=== PATIENT | female | born 1950 | race Caucasian/White ===

== ENCOUNTER 2023-02-07 11:12 | Emergency (ER) | payer MEDICARE, SELFPAY ==
--- NOTE | 2023-02-07 11:17 | ED.EYEPROB ---
HPI - Eye Problem General Chief complaint: Eye Problems Stated complaint: lt eye irritation Time Seen by Provider: 02/07/23 11:16 Source: patient Mode of arrival: ambulatory Limitations: no limitations History of Present Illness HPI Narrative: Patient is 9-year-old female that presents with left eye irritation, pain, discharge since yesterday. Patient states she woke up with her eye crusted shut with yellow/green discharge. Patient denies any pinkeye exposure. Patient used Visine drops last night mild relief. Denies any congestion, fever, chills, cough, shortness of breath, nausea, vomiting, diarrhea. Denies any changes in vision. Just went to eye doctor and received a new prescription. Denies any trauma to eye or feeling like there is something in it. Related Data Home Medications Medication Instructions Recorded Confirmed carbidopa 25 mg-levodopa 100 mg 1 tablet PO DAILY 02/07/23 02/07/23 tablet lamotrigine 25 mg tablet 25 mg PO DAILY 02/07/23 02/07/23 omeprazole 40 mg capsule,delayed 40 mg PO DAILY 02/07/23 02/07/23 release primidone 50 mg tablet 50 mg PO DAILY 02/07/23 02/07/23 propranolol 60 mg capsule,24 60 mg PO DAILY 02/07/23 02/07/23 hr,extended release topiramate 25 mg tablet 25 mg PO DAILY 02/07/23 02/07/23 Allergies Allergy/AdvReac Type Severity Reaction Status Date / Time Sulfa (Sulfonamide Allergy Unknown Verified 02/07/23 11:35 Antibiotics) Review of Systems Review of Systems: All systems reviewed & are unremarkable except as noted in HPI and below Constitutional: Constitutional: Denies body ache(s), Denies fever(s), Denies headache(s), Denies malaise and Denies weakness Eyes: Eyes: Denies blurry vision, Reports eye discharge, Reports irritation, Reports itchy eyes, Denies loss of vision and Reports eye pain ENT: Denies otalgia, Denies headache(s), Denies nasal discharge, Denies sinus pain and Denies sore throat Cardiovascular: Cardiovascular: Denies chest pain, Denies irregular heart rhythm and Denies dyspnea Respiratory: Respiratory: Denies dyspnea Gastrointestinal: Gastrointestinal: Denies abdominal pain, Denies diarrhea, Denies nausea and Denies vomiting Musculoskeletal: Musculoskeletal: Denies back pain, Denies myalgias and Denies arthralgias Integumentary/Breasts: Skin/Breast: Denies pruritus and Denies rash Neurologic: Denies headache(s), Denies loss of vision and Denies weakness Psychiatric: Psychiatric: Reports no additional psychiatric complaints Allergic/Immunologic: Allergic/Immunologic: Reports itchy eyes PMFSH Comments At time of signature, agree with nursing past medical, surgical, social and family history. There is no relevant family history pertinent to the presenting complaint. Exam Const: General: cooperative, healthy appearing, comfortable, no acute distress and well nourished Nutritional Appearance: well nourished Orientation/consciousness: patient oriented x3 Limitations: no limitations HENMT: Head: normal to inspection, normocephalic and atraumatic Ears: external ears normal Face/Nose/Sinus: Normal external nose present, normal facial exam and face symmetric Face and sinus: normal facial exam and face symmetric Mouth: Yes lip normal Eyes: General: appearance normal, both eyes and all related structures Visual Brush: normal visual brush by confrontation Alignment and Position: alignment normal and position normal Periorbital: periorbital findings normal Eyelids: eyelids normal Conjunctivae: conjunctival abnormality left conjunctival injection diffuse and discharge mucoid Sclera: scleral abnormality left scleral injection diffuse Pupils: Equal, round and reactive pupils present EOM: EOMs intact bilaterally Direct Ophthalmoscopy: no photophobia Other: No hyphema, no foreign body under the lids. Neck: Neck: normal visual inspection, full ROM, no lymphadenopathy and no meningeal signs Chest: Chest palpation & inspection: normal ins
[2023-02-07 11:37] VITALS: BP 134/65; PULSE 56; RESP 18; TEMP 36.7; O2SAT 99
== END 2023-02-07 12:26 | disposition home or self-care (01) ==
PROVIDERS: Emergency Provider Nurse Practitioner Family; PCP Internal Medicine
DX: H10.32 Unspecified acute conjunctivitis, left eye (principal); G20 Parkinson's disease; F31.9 Bipolar disorder, unspecified
CPT/HCPCS: 99203; G0463

== ENCOUNTER 2023-03-28 10:22 | Outpatient (RCR) | payer MEDICARE, SELFPAY ==
--- NOTE | 2023-03-28 13:40 | STOPEVDC ---
Assessment and note entered by Eli Mabry, COMM[employer]STRUCTOR Thank you for referring Lorraine Momin to [facility].? An evaluation has been completed. No further treatment is needed. Evaluation Information Assessment Status Evaluation Diagnosis Possible dysphagia Onset Unknown Subjective Information Patient reports history of weight loss surgery. She reports she feels as if food becomes hung up in the throat and eventually makes her have to force herself into vomiting if she feels food is still stuck/lodged at the base of her throat. She also reports loose dentures which could be contributing to her difficulty swallowing solid foods. She points to base of throat as to where solid foods hang up. Reported Pain Level Pain Score 0: Self Report Assessment ST Clinical Summary BEDSIDE SWALLOW EVALUATION This patient was seen for a Swallowing Evaluation at the request of her physician. As noted above, patient reports she has a history of Parkinson's disease although she also describes it as a type of Parkinson's however she noted her symptoms were improved with carpolevodopa, a typical medication to assist with improved symptoms of Parkinson's disease. She reports a history of weight loss surgery for the stomach. Much of patient's complaints are described as need to take very small bites and sips and pressure at the base of the throat. She reports one time she was tempted by a piece of brisket, took many small bites and sips, eventually felt the brisket at the level of the base of her throat, and was relieved when she made herself vomit. She reports she hardly eats anything but her size would indicate otherwise. When asked about where she gets her calories, she stated cookies and crackers, that she is able to crush them and swallow them without difficulty. She also stated she eats cottage cheese every day. Today the patient consumed only applesauce and exhibited no problems with bite sized spoonfuls. Patient's reports and results of this swallow indicate that patient is not truly having difficulty swallowing but her complaints are stemming from issues related to the weig
== END 2023-03-29 09:15 | disposition home or self-care (01) ==
LOC: ANHST 10:22
PROVIDERS: PCP Internal Medicine; Visit Provider Student in an Organized Health Care Education/Training Program
DX: R13.10 Dysphagia, unspecified (principal); G20 Parkinson's disease
CPT/HCPCS: 92610

== ENCOUNTER 2024-02-13 09:37 | Outpatient (CLI) | payer MEDICARE, SELFPAY ==
--- NOTE | ~2024-02-13 | MMUS_ITS ---
EXAMINATION: MM diagnostic charu BI w vladislav, US breast BI complete HISTORY: Right breast mass TECHNIQUE: . Field and spot ML, MLO and CC 3-D tomosynthesis images of both breasts were performed an d synthetic 2-D images were generated. CAD analysis was submitted and interpreted. High resolution co mplete bilateral breast ultrasound was performed. COMPARISON: 02/27/2023, 11/14/2021 outside bilateral screening mammogram examinations BREAST PARENCHYMAL COMPOSITION: The breasts are heterogeneously dense, which may obscure small masses . FINDINGS: MAMMOGRAPHIC FINDINGS: There is an approximately 1.5 cm ill-defined asymmetric mass density with architectural distortion in the posterior upper outer right breast. There are some associated new granular appearing microcalcif ications. ULTRASOUND: Right breast 11:00 4 cm from nipple an area of hard palpable mass: There is an approximately 1.5 by 2 cm irregular poorly circumscribed hypoechoic mass with prominent posterior shadowing, highly suggest diego of malignancy. Left breast 3:00 5 cm from nipple: 2.9 x 5 mm simple cyst No other significant sonographic abnormality of either breast is noted. IMPRESSION: 1. 1.5 x 2 cm irregular mass upper outer quadrant of right breast at 10:00, highly suggestive of ana gnancy 2. Consider ultrasound-guided biopsy for tissue diagnosis. BI-RADS category 5, highly suggestive of malignancy. Reviewed, dictated and finalized at location B. IMPRESSION: 1. 1.5 x 2 cm irregular mass upper outer quadrant of right breast at 10:00, hig hly suggestive of malignancy 2. Consider ultrasound-guided biopsy for tissue diagnosis. BI-RADS category 5, highly suggestive of malignancy.
== END 2024-02-13 09:38 ==
PROVIDERS: PCP Internal Medicine; Visit Provider Internal Medicine
DX: N63.10 Unspecified lump in the right breast, unspecified quadrant (principal); R92.8 Other abnormal and inconclusive findings on diagnostic imaging of breast
CPT/HCPCS: 76641; 77062; 77066; G0279

== ENCOUNTER 2024-04-21 13:28 | Outpatient (CLI) | payer MEDICARE, SELFPAY ==
--- NOTE | ~2024-04-21 | XR_ITS ---
MODIFIED ESOPHAGRAM HISTORY: Dysphagia. TECHNIQUE: Modified barium esophagram was performed on 04/21/2024. I administered fluoroscopy and perf ormed the exam with speech pathologist. Patient was seated for lateral fluoroscopic imaging for marcel stion of thin liquids, pudding, solids and quantified amounts, followed by thin liquids in uncontroll ed amounts. This was recorded on tape. A single fluoroscopic spot image was also recorded. The DAP fo r this procedure was 1.07 Gycm2. The amount of fluoroscopy time used during this procedure was 1.7 mi nutes. FINDINGS: Oral stage: Adequate function. Pharyngeal stage: Reduced laryngeal elevation. Laryngeal penetration without aspiration with thin liq uid.. Cervical/esophageal stage: Adequate function. IMPRESSION: Mild pharyngeal dysphagia with laryngeal penetration without aspiration with thin liquids . Please correlate with speech pathologist findings and specific feeding recommendations. Reviewed, dictated and finalized at location A. IMPRESSION: Mild pharyngeal dysphagia with laryngeal penetration without aspira tion with thin liquids. Please correlate with speech pathologist findings and specific feeding recommendations.
--- NOTE | ~2024-04-21 | MR_ITS ---
EXAMINATION: MR brain/brain stem wo con DATE: 04/21/2024 15:29 INDICATION: Dysphagia and dysarthria. TECHNIQUE: Magnetic resonance imaging (MRI) of the brain and brainstem was performed without intraven ous contrast. Sequences included sagittal and axial T1-weighted SE, axial diffusion-weighted FS SE, a xial 3D SWAN, axial T2-weighted FLAIR, and axial T2-weighted FSE. Apparent diffusion coefficient (ADC ) maps were created. COMPARISON: None. FINDINGS: There are no areas of restricted diffusion to suggest acute infarction. No intracranial hemorrhage or abnormal intracranial mass lesion. There are a few scattered small foci of nonspecific increased T2- weighted signal intensity in the cerebral white matter, predominantly involving the deep and perivent ricular white matter which is within normal limits for age and likely sequela of chronic small vessel ischemic disease. There are no intraparenchymal signal abnormalities seen on the other pulse sequenc es. The ventricles are symmetric and normal in size. There are no abnormal extra-axial fluid collecti ons. Flow voids are seen in the cerebral arteries on the T2-weighted sequences consistent with their expected patency. Mild mucosal thickening bilateral ethmoid sinuses. Visualized orbits and soft tissu es are unremarkable. IMPRESSION: 1. Normal aging brain. No acute intracranial process. Reviewed, dictated and finalized at location A.
--- NOTE | 2024-04-21 15:07 | REHSTMBS ---
Assessment and note entered by Eli Mabry, DIRECTOR OF PRODUCT MARKETING Modified Barium Swallow Evaluation Feeding Type Recommended Oral Food Consistency Soft and Bite Size, Level Liquid Consistency Thin (0) Treatment Recommendations Effortful Swallow,Laryngeal Elevation Exerc, Robel Maneuver,Tongue Base Exercise,Vocal Fold Adduction Exer ST Clinical Summary MODIFIED BARIUM SWALLOW STUDY This patient was seen for a Modified Barium Swallow study at the request of her physician. Patient reports a history of Gastric Bypass around 10 years ago, and has been diagnosed with Parkinson's-like syndrome. She also reports a history of GERD and also that she has had her esophagus stretched twice. Patient stated that she feels that meat becomes stuck in the area of the mid-chest or esophageal area and occasionally she has to make herself throw it up for relief. After therapist observed penetration into the airway on thin liquids, therapist questioned patient if she ever coughs when drinking liquids and she did admit to coughing frequently when drinking. Patient also reported occasional drooling from the sides of her lips and also concerns with choking on her own saliva when laying down. Patient was viewed in the lateral position to the level of C5/C6. Patient was presented with thin liquid contrast medium per cup and per straw, and then again using head flexion, pudding mixed with semi-solid contrast medium per spoon, and also pieces of fruit cocktail and ferny cracker piece both coated with the semi-solid mixture. She exhibited consistent trace penetration into the airway on uncontrolled thin liquid with head flexion assisting with the prevention of further penetration. Given mildly thickened liquid per straw, this did not improve the prevention of penetration. Patient exhibited no difficulty swallowing the solid foods. Results suggest the patient is at risk for aspiration on uncontrolled thin liquids; she was instructed in the use of head flexion for both thin liquids and solids. She voiced and demonstrated good understanding.
== END 2024-04-21 13:29 | disposition home or self-care (01) ==
PROVIDERS: PCP Internal Medicine; Visit Provider Student in an Organized Health Care Education/Training Program
DX: R13.10 Dysphagia, unspecified (principal); G20.C Parkinsonism, unspecified
CPT/HCPCS: 70551; 92611

== ENCOUNTER 2024-05-05 08:50 | Outpatient (CLI) | payer MEDICARE, SELFPAY ==
--- NOTE | ~2024-05-05 | MMUS_ITS ---
EXAMINATION: US breast biopsy RT w image, MM post biopsy diagnostic RT EXAMINATION: US GUIDED NEEDLE BIOPSY WITH VACUUM ASSISTANCE DATE: 05/05/2024 11:23 CDT INDICATION: Right breast mass. Ultrasound-guided core biopsy is requested to evaluate for malignancy . BREAST PARENCHYMAL COMPOSITION: Dense: The breasts are heterogeneously dense, which may obscure small masses TECHNIQUE AND FINDINGS: The risks and potential benefits of the procedure were discussed with the patient, and written inform ed consent was obtained. After sterile preparation of the right breast, 1% lidocaine was utilized fo r local anesthesia. 1% lidocaine with epinephrine was used for deep anesthesia. A 10G vacuum-assisted biopsy gun needle was advanced through to the outer edge of the region of inter est from a earlier approach utilizing sonographic guidance. A total of 4 tissue core samples were ob tained through the lesion. An Inrad tissue marker clip was then placed at the biopsy site. Hemostasi s was achieved. The patient tolerated procedure well and there was no evidence of immediate complication. The patien t was given verbal instructions partly is from the department. Right breast mammograms to document t issue marker clip placement. The tissue samples were submitted to surgical pathology for histologic a nalysis. IMPRESSION: 1. Successful ultrasound-guided vacuum-assisted biopsy of right breast mass with post procedure mamm ogram for marker placement. Please refer to pathology report for histologic analysis. Reviewed, dictated and finalized at location B. IMPRESSION: 1. Successful ultrasound-guided vacuum-assisted biopsy of right breast mass wi th post procedure mammogram for marker placement. Please refer to pathology rep ort for histologic analysis.
== END 2024-05-05 08:51 | disposition home or self-care (01) ==
PROVIDERS: PCP Internal Medicine; Visit Provider Internal Medicine
DX: C50.911 Malignant neoplasm of unspecified site of right female breast (principal); R92.8 Other abnormal and inconclusive findings on diagnostic imaging of breast
CPT/HCPCS: 19083; 77065; 88305; 88342; 88360; A4648

== ENCOUNTER 2024-12-08 12:48 | Outpatient (CLI) | payer MEDICARE, SELFPAY ==
[2024-12-08 13:18] LABS: Estimated Glomerular Filt Rate > 60
== END 2024-12-08 12:49 | disposition home or self-care (01) ==
LOC: MICIMG 12:49
PROVIDERS: PCP Internal Medicine; Visit Provider Internal Medicine Medical Oncology
DX: C50.411 Malignant neoplasm of upper-outer quadrant of right female breast (principal); Z17.0 Estrogen receptor positive status [ER+]; Z90.11 Acquired absence of right breast and nipple; Z98.84 Bariatric surgery status; R19.00 Intra-abdominal and pelvic swelling, mass and lump, unspecified site; Z98.0 Intestinal bypass and anastomosis status
CPT/HCPCS: 71260; Q9967

== ENCOUNTER 2025-03-09 14:09 | Outpatient (CLI) | payer MEDICARE, SELFPAY ==
--- OUTSIDE RECORDS SUMMARY | 2025-03-09 14:34 | XMS_ITS | Data Portability ---
Author Organization [facility] JESSIC[facility]la Address [address] [place] [address] Assessment Encounter Date Assessment Date Assessment LastModified by Organization Details LastModified Time 01/14/2024 01/14/2024 Surgical referral mammogram GERD anxiety Parkinson's syndrome disc in detail continue current therapy. old records [email or web address] Not available 01/20/2024 15:32:45 08/25/2024 08/25/2024 she was advised to stay up-to-date on all her immunizations and she is going to think about that we will obtain her colon cancer screening report she states she had a flu shot before surgery we need to get the documentation states that she had colonoscopy were trying to get the results follow up with me in 3-4 months Not available 09/07/2024 17:00:39 11/17/2024 11/17/2024 Parkinson's carbidopa levodopa. GERD omeprazole. Pneumococcal vaccine today history of breast cancer she sees her specialist in a week or so she will follow up with me in 4 months [email or web address] Not available 11/17/2024 23:39:16 02/23/2025 02/23/2025 We will continue current therapy healthy lifestyle care instructions have been given she will see me back in 4 months [email or web address] Not available 03/01/2025 15:39:00 Plan of Treatment Reminders Order Date Submit Date Provider Last Modified By Organization Details Last Modified Time Details Appointments ANY 15 2024 01:30P M Rafa Stearns MD Not available Not available Not available Lab CBC w/ auto diff 2024 025 [email or web address] [facility], [address], [address], [place], [address], 02/23/2025 15:52:42 CMP, serum or plasma 2024 025 [email or web address] [facility], [address], [address], [place], [address], 02/23/2025 15:52:42 lipid panel, serum 2024 025 [facility], [address], [address], [place], [address], 02/23/2025 15:52:42 Referral general surgeon referral - Pt is having mammogram done at [facility]. 2023 024 [facility] Back Fax Line), [facility] [address], [address], 05/27/2024 14:57:57 Procedures colonosco py screening (PROC) 2024 025 [facility], [address], [address], [place], [address], 03/03/2025 13:42:02 Surgeries None recorded. Imaging MAMMO, diagnosti c, digital, bilateral - right breast mass 2023 024 [facility], [address], [place], [address], 02/13/2024 13:06:26 Medication Orders None recorded. Patient TargetsNo targets recorded. Patient Instructions Encounter Date Encounter Id Patient Instructions Last Modified By Organization Details Last Modified Time 11/17/2024 [id number] A healthy lifestyle: care instructions [email or web address] Not available 11/17/2024 15:34:02 02/23/2025 [id number] A healthy lifestyle: care instructions [email or web address] Not available 02/23/2025 15:52:42 Reason for Referral General Surgeon Referral for Mass of right breast Pt is having mammogram done at [facility]. Referring Physician: Rafa Stearns, Internal Medicine, Encounter Date: 01/14/2024 Results Created Date Observation Date Name Description Value Unit Range Abnormal Flag Note LastModifiedBy Organization Detail LastModifiedTime 02/13/20 24 02/13/2024 MAMMO , diagn ostic , digit al, bilat eral No observ ation record ed. [address], [place], [address], 02/25/2024 18:18:16 02/13/20 24 02/13/2024 MAMMO , diagn ostic , digit al, bilat eral No observ ation record ed. [address], [place], [address], 02/25/2024 18:18:16 02/13/20 24 02/13/2024 MAMMO , diagn ostic , digit al, bilat eral No observ ation record ed. [address], [place], [address], 02/15/2024 11:03:09 02/13/20 24 02/13/2024 MAMMO , diagn ostic , digit al, bilat eral No observ ation record ed. [address], [place], [address], 02/25/2024 18:18:16 04/21/20 24 04/21/2024 sabine jeronimo ow study No observ ation record ed. [address] [facility], [place], [address], 04/23/2024 12:44:09 04/21/20 24 04/21/2024 MRI, brain + brain stem, w/o contr ast No observ ation record ed. [address], [place], [address], 04/23/2024 12:44:11 04/22/20 24 02/13/2024 MAMMO , diagn ostic , digit al, bilat eral No observ ation record ed. [address], [place], [address], 04/24/2024 23:05:42 05/05/20 24 05/05/2024 biops y, breas t, w/ ultra sound casi nce (PROC ) No observ ation record ed. [address], [place], [address], 05/13/2024 11:57:10 05/05/20 24 05/05/2024 biops y, breas t, w/ ultra sound casi nce (PROC ) No observ ation record ed. [address], [place], [address], 05/13/2024 11:57:10 05/14/20 24 05/05/2024 MAMMO , diagn ostic , digit al, bilat eral No observ ation record ed. [address], [place], [address], 05/14/2024 21:47:45 05/14/20 24 US, breas t, bilat eral No observ ation record ed. [address], [place], [address], 05/14/2024 21:47:45 05/14/20 24 05/05/2024 biops y, breas t, w/ ultra sound casi nce (PROC ) No observ ation record ed. [address], [place], [address], 05/15/2024 14:19:47 12/09/19 25 12/08/2024 CT, chest , w/ contr ast No observ ation record ed. [email or web address] [facility] [address], [place], [address], 12/11/2024 21:17:52 Result Notes None recorded. Problems Name Problem SNOMED Code Status Onset Date Resolution Date Notes Provider Name and Address Organization Details Recorded Time Mass of right breast 7798767087936 9106 Active 2023 Rafa Stearns MD Attn: Greyson garrido,[address] [place], [address], [facility] 4 15:30:54 Gastroesoph ageal reflux disease without esophagitis 332564955 Active 2023 Rafa Stearns MD Attn: Greyson garrido,[address] [place], [address], [facility] 4 15:30:55 Anxiety 60714739 Active 2023 Rafa Stearns MD Attn: Greyson garrido,[address] [place], [address], [facility] 4 15:30:56 Parkinson's disease 80531056 Active 2023 Rafa Stearns MD Attn: Greyson garrido,[address] [place], [address], [facility] 4 15:30:59 Bipolar disorder 84940492 Active 2023 Rafa Stearns MD Attn: Greyson garrido,[address] [place], [address], [facility] 4 15:31:01 History of malignant neoplasm of breast 058943568 Active 2023 Rafa Stearns MD Attn: Greyson garrido,[address] [place], [address], [facility] 4 16:59:57 Problem Notes None recorded. Procedures Surgical History Date Name Laterality Status Provider Name and Address Organization Details Recorded Time Appendectomy completed Della Lynch [place] [facility] 01/14/2024 15:19:30 Cholecystectomy completed Della Lynch MA [facility] 01/14/2024 15:19:35 Dilation and Curettage completed Della Lynch CAMACHO [facility] 01/14/2024 15:19:40 Knee Surgery completed Della Lynch CAMACHO [facility] 01/14/2024 15:19:45 Imaging Results None recorded. Procedure Notes None recorded. Medical Equipment None Reported. Allergies Allergen ID Allergen Name Allergen Category Reaction Reaction Severity Criticality Documentation Date Start Date Code Code System Note Provider Name and Address Organization Details Recorded Time 889483 Substance with sulfonami de structure and antibacte rial mechanism of action (substanc e) medicatio n rash Not available Not available 01/14/2024 95383 8003 SNOMED CAMACHO Ponce [facility] 15:18:27 484584 Benadryl medicatio n edema Not available Not available 01/14/2024 81550 7 RxNorm CAMACHO Ponce [facility] 15:18:40 Medications Name Sig Start Date Stop Date Status Note LastModified by Organization Details LastModified Time methocarbamo l 500 mg tablet TAKE 1 TABLET (500 MG TOTAL) BY MOUTH NIGHTLY TAKE ONLY NEEDED active Not Available Not Available No t Available anastrozole 1 mg tablet TAKE 1 TABLET BY MOUTH EVERY DAY active Not Available Not Available No t Available primidone 50 mg tablet TAKE 1 TABLET BY MOUTH EVERY DAY active Not Available Not Available No t Available ofloxacin 0.3 % eye drops 01/13 completed Not Available Not Available Not Available propranolol ER 60 mg capsule,24 hr,extended release TAKE 1 CAPSULE BY MOUTH EVERY DAY active Not Available Not Available No t Available topiramate 25 mg tablet TAKE 1 TABLET BY MOUTH THREE TIMES A DAY active Not Available Not Available No t Available omeprazole 40 mg capsule,sandra yed release TAKE 1 CAPSULE BY MOUTH EVERY DAY 2024 active Not Available Not Available Not Avai lable lamotrigine 25 mg tablet TAKE 1 TABLET BY MOUTH EVERY DAY active Not Available Not Available No t Available doxycycline monohydrate 100 mg capsule active Not Available Not Available Not Available docusate sodium 100 mg capsule TAKE 1 CAPSULE BY MOUTH TWICE DAILY active Not Available Not Available No t Available carbidopa 25 mg-levodopa 100 mg tablet TAKE 1 TABLET BY MOUTH 3 TIMES A DAY active Not Available Not Available No t Available oxycodone 5 mg tablet active Not Available Not Available No t Available Vitals Date Recorded Body height Body mass index (BMI) Body weight Heart rate Oxygen saturation Oxygen saturation in Arterial blood by Pulse oximetry Systolic blood pressure Diastolic blood pressure Provider Name and Address Organization Details Last Updated DateTime 5 152.4 cm 31.1 kg/m2 26852.5 5 g 68 /min 98 % 98 % 124 mm[Hg] 68 mm[Hg] Mulu Parnell MA [facility] 5 14:15:54 Date Recorded Body weight Heart rate Body temperature Oxygen saturation Oxygen saturation in Arterial blood by Pulse oximetry Systolic blood pressure Diastolic blood pressure Provider Name and Address Organization Details Last Updated DateTime 4 02949.4 7 g 62 /min 98.4 [degF] 98 % 98 % 122 mm[Hg] 84 mm[Hg] Della Lynch MA [facility] 4 15:27:07 Date Recorded Body height Body mass index (BMI) Body weight Heart rate Oxygen saturation Oxygen saturation in Arterial blood by Pulse oximetry Systolic blood pressure Diastolic blood pressure Provider Name and Address Organization Details Last Updated DateTime 5 152.4 cm 30.6 kg/m2 86842.6 4 g 78 /min 98 % 98 % 118 mm[Hg] 64 mm[Hg] Mulu Parnell MA [facility] 5 14:16:37 Date Recorded Body height Body mass index (BMI) Body weight Heart rate Oxygen saturation Oxygen saturation in Arterial blood by Pulse oximetry Systolic blood pressure Diastolic blood pressure Provider Name and Address Organization Details Last Updated DateTime 4 152.4 cm 31 kg/m2 97612.4 7 g 62 /min 96 % 96 % 120 mm[Hg] 64 mm[Hg] Mulu Parnell MA [facility] 4 14:59:43 Social History Question Answer Notes LastModified by Organizat ion Details LastModified Time Tobacco Smoking Status Never Smoker Della Lynch MA null, [facility] 01/14/2024 15:17:56 Do You Have An Advance Directive? Yes Information n ot available 08/25/2024 Are You Blind Or Do You Have Difficulty Seeing? No Information n ot available 01/14/2024 In The 14 Days Before Symptom Onset, Have You Had Close Contact With A Laboratory-confirm ed COVID-19 While That Case Was Ill? No Information n ot available 08/25/2024 In The 14 Days Before Symptom Onset, Have You Had Close Contact With A Person Who Is Under Investigation For COVID-19 While That Person Was Ill? No Information not available 08/25/2024 Have You Been To An Area Known To Be High Risk For COVID-19? No Information not available 08/25/2024 Are You Deaf Or Do You Have Serious Difficulty Hearing? No Information not available 01/14/2024 What Type Of Diet Are You Following? REGULAR Information n ot available 08/25/2024 Are There Any Guns Present In Your Home? No Information not available 08/25/2024 What Was The Date Of Your Most Recent Tobacco Screening? 02/23/2025 Information not available 02/23/2025 What Is Your Relationship Status? Information not available 01/14/2024 Do You Use Your Seat Belt Or Car Seat Routinely? Yes Information not available 08/25/2024 Do You Have Smoke And Carbon Monoxide Detectors In Your Home? Yes Information not available 08/25/2024 Do You Use Sunscreen Routinely? Yes Information not available 08/25/2024 Has Tobacco Cessation Counseling Been Provided? No Information not available 08/25/2024 Sex: Female Functional Status Question Answer Note LastModified by Organizat ion Details LastModified Time Do you use any illicit or recreational drugs? No Information not available 08/25/2024 Do you or have you ever used any other forms of tobacco or nicotine? No Information not available 08/25/2024 What is your level of alcohol consumption? None Information not available 01/14/2024 Are you currently employed? No Information not available 08/25/2024 Are you able to care for yourself? Yes Information n ot available 01/14/2024 What is your exercise level? Occasional Information not available 08/25/2024 Mental Status Question Answer Note LastModified by Organization D etails LastModified Time Do you feel stressed (tense, restless, nervous, or anxious, or unable to sleep at night)? [id number] Information not available 01/14/2024 Family History Relationship Description Onset Age of this Age Resolved Age Notes LastModified by Organization Details LastModified Time Brother Harmful pattern of use of alcohol [email or web address] Not available 2023 15:16:00 Brother Coronary arterioscler osis [email or web address] Not available 2023 15:16:19 Brother Depressive disorder [email or web address] Not available 2023 15:16:44 Brother Hypertensive disorder [email or web address] Not available 2023 15:16:55 Brother Hypercholest erolemia [email or web address] Not available 2023 15:16:59 Father Malignant tumor of breast [email or web address] Not available 2023 15:16:06 Father Coronary arterioscler osis [email or web address] Not available 2023 15:16:18 Father Dementia [email or web address] Not availabl e 01/14/2024 15:16:38 Father Depressive disorder [email or web address] Not available 2023 15:16:44 Father Osteoporosis [email or web address] Not avai lable 01/14/2024 15:17:06 Father Bipolar disorder [email or web address] Not available 2023 15:17:46 Mother Coronary arterioscler osis [email or web address] Not available 2023 15:16:19 Mother Dementia [email or web address] Not availabl e 01/14/2024 15:16:38 Mother Heart disease [email or web address] Not available 2023 15:16:50 Medical History Condition Response Anxiety Disorder Y Muscle, Joint, or Bone Problems Y Other Acid Reflux (GERD) Y Depression Y Allergies Y Gynecological History Statement/Question Response If Post Menopausal, Age at Menopause 45 Obstetrics History GPAL:G 3 P 3 0 0 3 Type Value Full Term 3 Living 3 Total 3 Immunizations Vaccine Type Date Status Note Provider Nam e and Address Organization Details Recorded Time Influenza, high-dose, quadrivalent, PF 0 completed Mulu Soheila, [place], [place] [facility] 11/17/2024 14:00:48 Influenza, high-dose, quadrivalent, PF 2 completed Mulu Soheila, [place], [place] [facility] 11/17/2024 14:00:48 Influenza, adjuvanted, quadrivalent, PF 3 completed Mulu Soheila, [place], [place] [facility] 11/17/2024 14:00:48 Influenza, high-dose, trivalent, PF 7 completed Mulu Soheila, [place], [place] [facility] 11/17/2024 14:00:48 Influenza, split virus, quadrivalent, PF 6 completed Mulu Soheila, [place] [facility] 11/17/2024 14:00:48 Influenza, split virus, quadrivalent, PF 7 completed Mulu Parnell, [place] [facility] 11/17/2024 14:00:48 Influenza, high-dose, trivalent, PF 4 completed Mulu Parnell, [place] [facility] 11/17/2024 14:00:54 Pneumococcal conjugate PCV20, polysaccharide EIH809 conjugate, adjuvant, PF 5 completed Rafa Stearns MD Attn: [address] [place], [address], [facility] 11/17/2024 23:38:08 Past Encounters Encounter ID Performer Location Encounter Start Date Encounter Closed Date Diagnosis/Indication Diagnosis SNOMED-CT Code Diagnosis ICD10 Code Diagnosis Note [id number] Rafa Stearns MD [facility] [employer] [facility] [place] [address] [place] [address] 01/14/2024 14:36:19 01/14/2024 16:08:27 Mass of right breast 9067114599 6133927 N63.10 Gastroesop hageal reflux disease without esophagitis 314890517 K21.9 Anxiety 00908408 F41.9 Parkinson's disease 4904 9000 G20.A1 Bipolar disorder 5543541 4 F31.9 [id number] Rafa Stearns MD [facility] [place] [address] [place] [address] 08/25/2024 14:41:59 08/25/2024 15:42:06 Gastroesophageal reflux disease without esophagitis 229012675 K21.9 Parkinson's disease 4904 9000 G20.A1 History of malignant neoplasm of breast 301625005 Z85.3 [id number] Rafa Stearns MD [facility] [employer] [facility] [place] [address] [place] [address] 11/17/2024 13:48:06 11/17/2024 14:59:19 Body mass index 30+ - obesity 049620323 Z68.31 Obesity 911953877 E66.9 Administra tion of pneumococcal vaccine 93053795 Z23 Gastroesop hageal reflux disease without esophagitis 541132280 K21.9 Parkinson's disease 4904 9000 G20.A1 Anxiety 75671116 F41.9 [id number] Rafa Stearns MD [facility] [employer] [facility] [place] [address] [place] [address] 02/23/2025 13:51:42 02/23/2025 15:11:14 Obese class I 1859168024 15233 E66.811 Parkinson's disease 4904 9000 G20.A1 Screening for cardiovascular system disease 697207168 Z13.6 Screening for malignant neoplasm of colon 464216601 Z12.11 Gastroesop hageal reflux disease without esophagitis 592691913 K21.9 Anxiety 86743284 F41.9 History of malignant neoplasm of breast 146081784 Z85.3 Health Concerns Section Related Observation LastModified by Organization Detai ls LastModified Time None Recorded Concern Status LastModified by Organization Details LastModified Time None Recorded Advance Directives Directive Y: Payers Encounter Date Sequence Insurance Name Policy Number Policy Mcclendon Covered Member ID Mcclendon Member ID Guarantor Name 01/14/2024 1 [facility] [id number] Lorraine Momin [id number] Lorraine Momin 08/25/2024 1 [facility] (MEDICARE REPLACEMENT/A DVANTAGE - HMO) [id number] Lorraine Momin [id number] Lorraine Momin 11/17/2024 1 [facility] (MEDICARE REPLACEMENT/A DVANTAGE - HMO) [id number] Lorraine Clay Merrill [id number] Lorraine Lesliejhony 02/23/2025 1 [facility] (MEDICARE REPLACEMENT/A DVANTAGE - HMO) [id number] Lorraine Lesliejhony [id number] Lorraine Lesliejhony Notes Date Note Type Note Provider Name and Address Organization Details Recorded Time 01/14/2024 text/html 73-year-old with GERD anxiety depression Parkinson's syndrome and bipolar disorder has been doing reasonably well GERD no nausea no vomiting anxiety depression no SI or HI Parkinson syndrome doing fine swallowing okay no clear-cut movement abnormalities at this time that seems to be bothering her bipolar seems to be stable. She feels a mass in her right breast several months no nipple discharge Della Lynch MA [facility], [place] - [facility] 02/12/2024 16:04:41 08/25/2024 text/html GERD stable no nausea vomiting or heartburn. Tremor primidone seems to be doing okay. Parkinson's doing well on carbidopa levodopa. Interval history breast cancer treated at [facility] Rafa Stearns MD Attn: [address] [place], [address], [place] [facility] 09/07/2024 17:01:11 11/17/2024 text/html Parkinson's has been relatively stable no side effects from medications. Anxiety is up a little bit she is just day-to-day with regards to the breast cancer diagnosis but overall seems fairly positive. GERD no nausea no vomiting Rafa Stearns MD Attn: [address] [place], [address], [place] [facility] 11/17/2024 23:39:35 02/23/2025 text/html Regular follow u p her Parkinson's has been doing okay anxiety is high dealing with her has been has been ill breast cancer has been doing fine with regards to her treatment she is now on aromatase inhibitor therapy. Anxiety stable Rafa Stearns MD Attn: [address] [place], [address], [place] [facility] 03/01/2025 15:39:22 OBGyn Episode No OBEpisode recorded.
--- OUTSIDE RECORDS SUMMARY | 2025-03-09 14:34 | XMS_ITS | Clinical Summary ---
Author Organization [facility] Address [address] [place] [address] Care Team Providers Care Tower Cleaner Name Role Phone Chanelle White MILTON-TOOL SHAPER SETUP OPERATOR Primary Care Provider [phone] Source Comments [facility],non-owned Affiliates and Associated Physician Practices is amultiple site organization consisting of ambulatory clinics and hospital sitesin [place], [place], [place] and [place]. This disclosure is being madepursuant to the Care Everywhere program and may not contain all information available regarding this patient. Last updated 18.[facility] Social History Tobacco Use Types Packs/Day Years Used Date Smoking Tobacco: Never Assessed Comments Unknown Sex and Gender Information Value Date Recorded Sex Assigned at Not on file Legal Sex Female 6:12 AM FAMILY PHYSICIAN Gender Identity Not on file Sexual Orientation Not on file Plan of Treatment Health Maintenance Due Date Last Done Comments BONE DENSITY TESTING 1950 COLOGUARD (AGES 45-75) - COL ON CA SCREENING 1952 COLON MONITORING 1952 COLONOSCOPY - COLON CA SCREENING 1952 CT COLONOGRAPHY - COLON CA SCREENING 1952 Colorectal Cancer Screening 1952 FIT - COLON CA SCREENING 1952 FLEX SIG - COLON CA SCREENING 1952 LIPID TESTING 1952 MAMMOGRAM 1952 HEPATITIS C SCREENING 05/15/1970 DTAP/TDAP/TD VACCINES (1 - Tdap) 1971 PNEUMOCOCCAL VACCINE 50+ (1 of 1 - PCV) 2002 ZOSTER VACCINE (1 of 2) 2002 COVID-19 VACCINE ( - 2023-2 5 season) 2024 DEPRESSION SCREENING 10/08/2024 MEDICARE AWV CALENDAR YEAR 2024 INFLUENZA VACCINE (Season Ended) 2025 Respiratory Syncytial Virus (RSV) Vaccine Pt: or over 60 yrs (1 - 1-dose 75+ series) 2027 HEPATITIS B VACCINE Aged Out No longe r eligible based on patient's age to complete this topic HIB VACCINE Aged Out No longer eligi ble based on patient's age to complete this topic HPV VACCINE Aged Out No longer eligi ble based on patient's age to complete this topic MENINGOCOCCAL (Group B) VACC INE SHARED DECISION-MAKING Aged Out No longer eligibl e based on patient's age to complete this topic MENINGOCOCCAL GROUPS A/C/Y/W VACCINE Aged Out No longer eligible b ased on patient's age to complete this [place] [address] [place] [address] [place] [address] UHC MANAGED MEDICARE ADV * Guarantor: CHIP MOMIN Account Type Relation to Patient Date of Phone Billing Address Personal/Family [address] [address] SELF PAY NO INSURANCE Member Subscriber Plan / Payer (Ef fective for All Dates) Name:Malissa Chip Clay Member ID:Not on file Relation to Subscriber:Not on file Name:JASONABDELRAHMANDOUGLASPATRICIOCHIP Subscriber ID:Not on file Address: [address] [place], [place] [id number] Payer ID:Not on file Group ID:Not on file Type:Self Pay Address: [facility] MANAGED MEDICARE ADV * Guarantor: CHIP MOMIN Account Type Relation to Patient Date of Phone Billing Address Personal/Family [address] [place], [place] [id number] SELF PAY NO INSURANCE Member Subscriber Plan / Payer (Ef fective for All Dates) Name:Chip Momin Member ID:Not on file Relation to Subscriber:Not on file Name:MAL[place]IP Subscriber ID:Not on file Address: [address] [place], [place] [id number] Payer ID:Not on file Group ID:Not on file Type:Self Pay Address: [place], [place] UHC MANAGED MEDICARE ADV * Guarantor: CHIP MOMIN Account Type Relation to Patient Date of Phone Billing Address Personal/Family [address] [place] SELF PAY NO INSURANCE Member Subscriber Plan / Payer (Ef fective for All Dates) Name:Chip Momin Obed Member ID:Not on file Relation to Subscriber:Not on file Name:MALISSACHIP Subscriber ID:Not on file Address: [address] [place], [place] Payer ID:Not on file Group ID:Not on file Type:Self Pay Address: [facility] MANAGED MEDICARE ADV Care Teams Tower Cleaner Relationship Specialty Start Date End Date Chanelle White, PRODUCTION ROUSTABOUT-TOOL SHAPER SETUP OPERATOR [address] [place] [address] PCP - General Nurse Practitioner Family 08/27/19
--- OUTSIDE RECORDS SUMMARY | 2025-03-09 14:35 | XMS_ITS | Encounter Summary ---
Author Organization [facility] Address [address] [place] [address] Phone Care Team Providers Care Legal Editor Name Role Phone Lele Hirsch DO Unavailable [phone] Rafa Stearns MD Unavailable [phone] Rafa Stearns MD Primary Care Provider [phone] Encounter Details Date Type Department Care Team (Late st Contact Info) Description 03/04/2025 Results Follow-Up [facility] Surgery [address] [place] [address] Sandra Villareal MD [address] [id number] Screening Mammogram Left W [place] Unilateral Only Social History Tobacco Use Types Packs/Day Years Used Date Smoking Tobacco: Never Smokeless Tobacco: Never Alcohol Use Standard Drinks/Week Comments No 0 (1 standard drink = 0.6 oz pur e alcohol) OASIS D0700: Social Isolation Answer Da te Recorded Frequency of experiencing loneliness or isolatio n Never 08/18/2024 OASIS A1250: Transportation Answer Date Recorded Lack of Transportation (Medical) No 08/18/2024 Lack of Transportation (Non-Medical) No 08/18/2024 Patient Unable or Declines to Respond No 08/18/2024 OASIS B1300: Health Literacy Answer Beka e Recorded Frequency of needing help to read materials from doctor or pharmacy Never 08/18/2024 AUDIT-C Answer Date Recorded Q1: How often do you have a drink containing alcohol? Never 07/21/2024 Q2: How many drinks containi ng alcohol do you have on a typical day when you are drinking? Patient does not drink Q3: How often do you have si x or more drinks on one occasion? Never 07/21/2024 Personal Safety Answer Date Recorded Have you ever been in or are you currently in a harmful physical or emotional relationship or is someone making you feel afraid or unsafe? 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 Gender Identity Not on file Sexual Orientation Not on file documented as of this encounter Plan of Treatment Not on file documented as of this encounter Visit Diagnoses Not on filedocumented in this encounter Care Teams Legal Editor Relationship Specialty Start Date End Date Rafa Stearns MD [address] [place] [address] PCP - General Internal Medicine 05/28/24 Lele Hirsch DO [address] [place] [address] MEDICAL ONCOLOGY, [facility] [address] [place] [address] Medical Oncologist/Instructional Aide Hematology and Oncology 05/19/24 Rafa Stearns MD [address] [place] [address] Referring Physician Internal Medicine 05/26/24 documented as of this encounter
--- OUTSIDE RECORDS SUMMARY | 2025-03-09 14:35 | XMS_ITS | Clinical Summary ---
Author Organization [facility] Address [address] [place] [address] Care Team Providers Care Chief Wellness Officer Name Role Phone Lele Hirsch DO Unavailable [phone] Rafa Staerns MD Unavailable [phone] Rafa Stearns MD Primary Care Provider [phone] Allergies Active Allergy Reactions Criticality Noted Date Comments Diphenhydramine Hydrocodone Stomach upset Low 01/20/2019 Morphine Nausea And Vomiting 01/31/2019 Sulfa (Sulfonamide Antibiotics) Medications topiramate (TOPAMAX) 25 mg tablet take 3 tablets by oral route at night 90 0 12/01/19 16 Active cholecalciferol (VITAMIN D3) 5,000 unit tablet 0 0 03/11/20 15 Active cyanocobalamin, vitamin B-12, (VITAMIN B-12) 5,000 mcg tablet, sublingual 5,000 mcg. 0 0 03/11/20 15 Active biotin 1 mg capsule 1 mg. 0 0 03/11/20 15 Active calcium carbonate (CALCIUM 600) 1,500 mg (600 mg of elemental calcium) tablet take 1 Tablet by Oral route every day 0 0 03/11/20 15 Active multivitamin capsule take 1 capsule by oral route every day 0 0 03/11/20 15 Active lamoTRIgine (LaMICtal) 200 mg tablet take 1 tablet by oral route every day 0 0 03/11/20 15 Active Additional Information Patient taking differently: 25 mg, Informant: Self, Reported on 03/03/2025 propranolol LA (INDERAL LA) 60 mg 24 hr capsule Take 1 capsule (60 mg total) by mouth daily. 30 capsule 5 04/06/20 17 Active primidone (MYSOLINE) 50 mg tablet TAKE 1 TABLET BY MOUTH EVERY NIGHT 30 tablet 2 11/08/19 18 Active carbidopa-levodopa (SINEMET) 25-100 mg per tabletIndications: Parkinsonism Take 1 tablet by mouth 3 (three) times a day Active omeprazole (PriLOSEC) 40 mg capsuleIndications :GERD Take 1 tablet by mouth every morning 07/26/20 20 Active acetaminophen 500 mg capsuleIndications :Fever,Pain Take 2 capsules (1,000 mg total) by mouth every 6 (six) hours as needed for pain Use first for management of pain 07/22/20 Active Additional Information Patient not taking.Reported on 03/03/2025 oxyCODONE (ROXICODONE) 5 mg immediate release tabletIndications: Pain Take 1 tablet (5 mg total) by mouth nightly as needed for pain 10 tablet 08/01/20 Active Additional Information Patient not taking.Reported on 03/03/2025 docusate sodium (COLACE) 100 mg capsuleIndications :constipation Take 1 capsule (100 mg total) by mouth 2 (two) times a day 30 capsule 08/01/20 Active Additional Information Patient not taking.Reported on 03/03/2025 methocarbamoL (ROBAXIN) 500 mg tabletIndications: Muscle Spasm Take 1 tablet (500 mg total) by mouth nightly Take only as needed 30 tablet 08/15/20 Active Additional Information Patient not taking.Reported on 03/03/2025 anastrozole (ARIMIDEX) 1 mg tabletIndications: Hormone Receptor + Postmenopausal Advanced Breast Cancer Take 1 tablet (1 mg total) by mouth daily 90 tablet 2 08/15/20 24 025 Active capsaicin (ZOSTRIX) 0.025 % creamIndications:A rthritic Pain Apply topically 2 (two) times a day 60 g 1 12/20/19 Active Additional Information Patient not taking.Reported on 03/03/2025 Active Problems Problem Noted Date Diagnosed Date Parkinson's disease without fluctuating manifestations, unspecified whether dyskinesia present 12/20/2024 Bipolar I disorder 12/20/2024 Breast cancer in female 07/21/2024 Malignant neoplasm of right female breast 2023 Cancer Staging:Clinical stage from 08/15/2024:Stage IB(cT2, cN0(sn), cM0, G2, ER+, NM+, HER2-, Oncotype DX score: 2) - Signed by Lele Hirsch DO on 08/16/2024 Malignant neoplasm of upper- outer quadrant of right breast in female, estrogen receptor positive 05/28/2024 Essential tremor 12/01/2015 Overview (01/11/2017): Essential tremor Encounters Date Type Department Care Team Description 03/04/2025 Telephone [facility] Surgery [address] [place] [phone] Jessica Pratt RN 03/04/2025 Results Follow-Up [facility] Surgery [address] [place] [phone] Sandra Villareal MD Screening Mammogram Left W [place] Unilateral Only 03/03/2025 1:15 PM CDT Office Visit [facility] Surgery [address] [place] [phone] Sandra Villareal MD Malignant neoplasm of upper-outer quadrant of right breast in female, estrogen receptor positive (HCC) (Primary Dx); Screening mammogram for breast cancer 03/03/2025 1:02 PM CDT - 03/03/2025 11:59 PM CDT Hospital Encounter [facility] - Breast Imaging [address] [place] [phone] Malignant neoplasm of upper-outer quadrant of right breast in female, estrogen receptor positive (HCC); Encounter for screening mammogram for malignant neoplasm of breast Discharge Disposition: Discharge to home or self care 12/19/2024 1:15 PM CDT Office Visit [facility] Oncology [address] [place] [address] [address] [place] [address] Lele Hirsch DO Malignant neoplasm of upper-outer quadrant of right breast in female, estrogen receptor positive (HCC) (Primary Dx); Parkinson's disease without fluctuating manifestations, unspecified whether dyskinesia present (HCC); Bipolar I disorder (HCC) 12/09/2024 Orders Only [facility] Oncology [address] [place] [phone] Reginald Landon MD 12/08/2024 Orders Only [facility] Oncology [address] [place] [phone] ProviderReginald MD from Last 3 Months Immunizations Immunization Administration Dates Next Due Influenza, Quad, Adjuvantated, Intramuscular 07/2023 Influenza, Quadrivalent, Hig h Dose, Preservative Free, Intrr 09/05/2022,08/18/2020 Influenza, Quadrivalent, Spl it, Preservative Free, Intramuscular 07/08/2017,07/05/2016 Influenza, Trivalent, High D ose, Split, Preservative Free, Intramuscular 06/30/2024,06/30/2017 Influenza, Unspecified 07/11/2024 Pneumococcal Conjugate Pcv20 11/17/2024 ZOSTER Recombinant 05/09/2020 Surgical History Surgery Date Site/Laterality Comments GASTRIC BYPASS Gastric bypass APPENDECTOMY appendectomy OTHER SURGICAL HISTORY unilateral oopherectomy TOTAL ABDOMINAL HYSTERECTOMY Hysterectomy, total CHOLECYSTECTOMY cholecystectomy LUMBAR PUNCTURE WO INJECTION, DIAGNOSTIC 09/25/2016 N/A KNEE SURGERY BLADDER SUSPENSION 10/08/2018 - 10/07/2019 DILATION AND CURETTAGE OF UTERUS Medical History Medical History Date Comments Hx Other Medical Bipolar Peptic ulcer Peptic ulcer dis ease; Comments: HLP 04/19/2015 - Arthritis hip and back Bipolar disorder (HCC) Diverticulitis peptic ulcer Depression Overweight Breast cancer (HCC) Delayed emergence from general anesthesia 2018 bladder suspension surgery PONV (postoperative nausea and vomiting) Family History Medical History Relation Name Comments Diabetes Brother 1 Pancreatic cancer Brother 1 Diabetes Brother 2 Heart disease Brother 2 Alzheimer's disease Father Alzheime r's disease; Diabetes Father Diabetes mellit us; Car Accident Maternal Grandfather Heart attack Maternal Grandmother Alzheimer's disease Mother Alzheime r's disease; Heart failure Mother Congestive hea rt failure; Pancreatic cancer Mother Breast cancer Mother's Sister 1 Lung cancer Mother's Sister 1 Bladder Cancer Mother's Sister 2 Pancreatic cancer Other Family his tory of Cancer, pancreas; Other Paternal Grandfather old age Paternal Grandmother Diabetes Son Relation Name Status Comments Brother 1 Brother 2 Alive Father (Age 82) Maternal Grandfather Maternal Grandmother Mother (Age 90) Mother's Sister 1 Mother's Sister 2 Other Paternal Grandfather Paternal Grandmother Son Alive Social History Tobacco Use Types Packs/Day Years Used Date Smoking Tobacco: Never Smokeless Tobacco: Never Tobacco Cessation:Counseling Given: Not Answered Alcohol Use Standard Drinks/Week Comments No 0 [...] on file 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 Gender Identity Not on file Sexual Orientation Not on file Obstetrics History Last Filed Vital Signs Vital Sign Reading Time Taken Comments Blood Pressure 109/68 12/19/2024 1:14 PM CDT Pulse 57 12/19/2024 1:14 PM CDT Temperature 36.3 C (97.4 F) 12/19/2024 1:14 PM CDT Respiratory Rate 16 12/19/2024 1:14 PM CDT Oxygen Saturation 99% 12/19/2024 1:14 PM CDT Inhaled Oxygen Concentration - - Weight 72.6 kg (160 lb) 03/03/2025 12:51 PM CDT Height 152.4 cm (5') 03/03/2025 12:51 PM CDT Body Mass Index 31.25 03/03/2025 12:51 PM CDT Plan of Treatment Health Maintenance Due Date Last Done Comments Colon Cancer Screening-Colonoscopy 1950 Depression Screening 1950 Hepatitis C Screening 1952 DTaP/Tdap/Td Vaccine (1 - Tdap) 1963 Hepatitis B Screening 1970 Well Visit 65+ 2017 Zoster Vaccine (2 of 2) 07/04/2020 05/09/2020 Osteoporosis Screening-Bone Density Scan 11/14/2023 11/14/2021, 04/25/2018 Fall Risk Assessment 07/22/2025 07/22/2024 Breast Cancer Screening-Mammogram 03/03/2026 03/03/2025, 02/28/2023, 11/14/2021, Additional history exists Influenza Vaccine Completed 07/11/2024, , 08/17/2023, Additional history exists Pneumococcal vaccine 65+ Completed 11/17/2024 Procedures Procedure Name Priority Date/Time Associated Diagnosis Comments SCREENING MAMMOGRAM LEFT W [place] UNILATERAL ONLY Schedule Routine, Read Routine (OP Routine) 03/03/2025 1:10 PM CDT Malignant neoplasm of upper-outer quadrant of right breast in female, estrogen receptor positive (HCC) Encounter for screening mammogram for malignant neoplasm of breast POCT CREATININE FOR CONTRAST EVALUATION Routine 12/08/2024 3:[address] CHEST W CONTRAST Schedule Routine, Read Routine (OP Routine) 12/08/2024 8:19 AM FORKLIFT OPERATOR from Last 3 Months Results * Screening Mammogram Left W [place] Unilateral Only (03/03/2025 1:10 PM CDT) Anatomical Region Laterality Modality Breast Left Mammography Narrative 03/04/2025 1:08 PM CDT Mammogram Technique: Left Breast Digital Breast Tomosynthesis, Unilateral C-view 2D Screening mammogram. Views obtained: left craniocaudal and left mediolateral oblique. Computer Aided Detection was performed. Mammogram Findings: The present examination has been compared to prior imaging studies performed at [facility] on 05/05/2024, at [facility], [place] on 02/27/2023, and at [facility] on 02/13/2024. There are scattered areas of fibroglandular density. There is a focal asymmetry in the posterior of the left breast at 12 o'clock. Patient status post contralateral mastectomy for personal history of breast cancer. Impression: Focal asymmetry in the left breast requires additional evaluation. Diagnostic mammogram and possible ultrasound of the left breast are recommended at this time. OVERALL FINAL ASSESSMENT: BI-RADS CATEGORY 0: Incomplete: Need additional imaging evaluation. Procedure Note Marbella Trujillo MD - 03/04/2025 Mammogram Technique: Left Breast Digital Breast Tomosynthesis, Unilateral C-view 2D Screening mammogram. Views obtained: left craniocaudal and left mediolateral oblique. Computer Aided Detection was performed. Mammogram Findings: The present examination has been compared to prior imaging studies performed at [facility] on 05/05/2024, at [place], [place] on 02/27/2023, and at [facility] on 02/13/2024. There are scattered areas of fibroglandular density. There is a focal asymmetry in the posterior of the left breast at 12 o'clock. Patient status post contralateral mastectomy for personal history ofbreast cancer. Impression: Focal asymmetry in the left breast requires additional evaluation. Diagnostic mammogram and possible ultrasound of the left breast are recommended at this time. OVERALL FINAL ASSESSMENT: BI-RADS CATEGORY 0: Incomplete: Need additional imaging evaluation. Sandra MEIER MAMMO PROCEDURES Fi nal Result * POCT creatinine for contrast evaluation (12/08/2024 3:48 PM FORKLIFT OPERATOR) Blood Historical Provider POINT OF CARE TEST ORDERA BLES Final Result * CT Chest W Contrast (12/08/2024 8:19 AM FORKLIFT OPERATOR) Anatomical Region Laterality Modality Body N/A Computed Tomogra phy Historical Provider MD MEIER CT PROCEDURES Final R esult from Last 3 Months Insurance [facility] MEDICARE ADVANTAGE [facility] MEDICARE Address: [address] [address] [place] [address] [facility] MEDICARE ADVANTAGE [facility] MEDICARE Address: [address] [address] [place] [address] Advance Directives For more information, please contact: [phone] * Full Code (Latest Code Status on File) Date Activated Date Inactivated Comments 07/21/2024 7:29 PM 07/22/2024 8:01 PM Care Teams Chief Wellness Officer Relationship Specialty Start Date End Date Rafa Stearns MD [address] [place] [address] PCP - General Internal Medicine 05/28/24 Lele Hirsch DO [address] [facility] MEDICAL ONCOLOGY, [facility] [address] [place] [address] Medical Oncologist/Fabrication Operator Hematology and Oncology 05/19/24 Rafa Stearns MD [address] [place] [address] Referring Physician Internal Medicine 05/26/24
--- OUTSIDE RECORDS SUMMARY | 2025-03-09 14:35 | XMS_ITS | Referral Summary ---
Author Organization [facility] Address [address] [place] [address] Care Team Providers Care Studio Assistant Name Role Phone Lele Hirsch DO Unavailable [phone] Rafa Stearns MD Unavailable [phone] Rafa Stearns MD Primary Care Provider [phone] Encounters Date Type Department Care Team Description 03/04/2025 Telephone [facility] Surgery [address] [place] [id number] Jessica Pratt RN 03/04/2025 Results Follow-Up [facility] Surgery [address] [place] [phone] Sandra Villareal MD Screening Mammogram Left W [place] Unilateral Only 03/03/2025 1:02 PM CDT - 03/03/2025 11:59 PM CDT Hospital Encounter [facility] - Breast Imaging [address] [place] [id number] Malignant neoplasm of upper-outer quadrant of right breast in female, estrogen receptor positive (HCC); Encounter for screening mammogram for malignant neoplasm of breast Discharge Disposition: Discharge to home or self care 03/03/2025 1:15 PM CDT Office Visit [facility] Surgery [address] [place] [phone] Sandra Villareal MD Malignant neoplasm of upper-outer quadrant of right breast in female, estrogen receptor positive (HCC) (Primary Dx); Screening mammogram for breast cancer 12/19/2024 1:15 PM CDT Office Visit [facility] Oncology [address] [place] [address] [address] [place] [address] Lele Hirsch, Malignant neoplasm of upper-outer quadrant of right breast in female, estrogen receptor positive (HCC) (Primary Dx); Parkinson's disease without fluctuating manifestations, unspecified whether dyskinesia present (HCC); Bipolar I disorder (HCC) 12/09/2024 Orders Only [facility] [address] [place] [address] [address] [place] [address] Reginald Landon MD 12/08/2024 Orders Only [facility] [address] [place] [address] [address] [place] [address] Reginald Landon MD from Last 3 Months Allergies Active Allergy Reactions Criticality Noted Date [...] 1 tablet by mouth every morning 07/26/20 Active acetaminophen 500 mg capsuleIndications :Fever,Pain Take [...] from 08/15/2024:Stage IB(cT2, cN0(sn), cM0, G2, ER+, SD+, HER2-, Oncotype DX score: 2) - Signed by Lele Hirsch DO on 08/16/2024 Malignant neoplasm of upper- outer quadrant of right breast in female, estrogen receptor positive 05/28/2024 Essential tremor 12/01/2015 Overview (01/11/2017): Essential tremor Immunizations Immunization Administration Dates Next Due Influenza, Quad, Adjuvantated, Intramuscular 07/2023 Influenza, Quadrivalent, Hig h Dose, Preservative Free, Intrr 09/05/2022,08/18/2020 Influenza, Quadrivalent, Spl it, Preservative Free, Intramuscular 07/08/2017,07/05/2016 Influenza, Trivalent, High D ose, Split, Preservative Free, Intramuscular 06/30/2024,06/30/2017 Influenza, Unspecified 07/11/2024 Pneumococcal Conjugate Pcv20 11/17/2024 ZOSTER Recombinant 05/09/2020 Social History Tobacco Use Types Packs/Day Years [...] on file 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[employer] Gender Identity Not on file Sexual Orientation Not on file Last Filed Vital Signs Vital Sign Reading [...] 03/03/2025 12:51 PM CDT Plan of Treatment Not on file Procedures Procedure Name Priority Date/Time Associated Diagnosis Comments SCREENING MAMMOGRAM LEFT W [place] UNILATERAL ONLY Schedule Routine, Read Routine (OP Routine) 03/03/2025 1:10 PM CDT Malignant neoplasm of upper-outer quadrant of right breast in female, estrogen receptor positive (HCC) Encounter for screening mammogram for malignant neoplasm of breast POCT CREATININE FOR CONTRAST EVALUATION Routine 12/08/2024 3:48 [address] [employer] MACH[employer] CT CHEST W CONTRAST Schedule Routine, Read Routine (OP Routine) 12/08/2024 8:19 AM WASHING MACHINE ASSEMBLER from Last 3 Months Results * Screening [...] compared to prior imaging studies performed at [facility] on 05/05/2024, at [place], [place] on 02/27/2023, and at [facility] on 02/13/2024. There are scattered areas of [...] compared to prior imaging studies performed at [facility] on 05/05/2024, at [place], [place] on 02/27/2023, and at [facility] on 02/13/2024. There are scattered areas of [...] CATEGORY 0: Incomplete: Need additional imaging evaluation. us Sandra MEIER MAMMO PROCEDURES Fi nal Result * POCT creatinine for contrast evaluation (12/08/2024 3:48 PM WASHING MACHINE ASSEMBLER) Blood us Historical Provider POINT OF CARE TEST ORDERA BLES Final Result * CT Chest W Contrast (12/08/2024 8:19 AM WASHING MACHINE ASSEMBLER) Anatomical Region Laterality Modality Body N/A Computed Tomogra phy Historical Provider MD MEIER CT PROCEDURES Final R esult from Last 3 [place] [address] [employer] Advance Directives For more information, please contact: [phone] * Full Code (Latest Code Status on File) Date Activated Date Inactivated Comments 07/21/2024 7:29 PM 07/22/2024 8:01 PM Care Teams Studio Assistant Relationship Specialty Start Date End Date Rafa Stearns MD [address] [place] [address] PCP - General Internal Medicine 05/28/24 Lele Hirsch DO [facility] [address] [place] [address] Medical Oncologist/[facility] 05/19/24 Rafa Stearns MD [address] [place] [address] Referring Physician Internal Medicine 05/26/24
--- OUTSIDE RECORDS SUMMARY | 2025-03-09 14:35 | XMS_ITS | Data Portability ---
Author Organization [facility] [employer], Main Office Address [address] [place] [address] Assessment Encounter Date Assessment Date Assessment LastModified by Organization Details LastModified Time 02/27/2023 02/27/2023 Wellness completed orders given continue current therapy completed her mammogram today blood work ordered and follow-up in 4 months [email or web address] Not available 03/03/2023 16:03:07 09/18/2023 09/18/2023 Will continue current therapy blood work has been ordered she will follow-up with me in 4-6 months all questions have been answered Not available 09/18/2023 18:59:34 Plan of Treatment Reminders Order Date Submit Date Provider Last Modified By Organization Details Last Modified Time Details Appointments None recorded. Lab HbA1c (hemoglobin A1c), blood 2022 023 [email or web address] [facility], [address] [facility], [facility] [address], [place], [address], 4 08:32:01 lipid panel, serum 2022 023 MEDARDO [facility], [address] [facility], [facility], [place], [address], 3 20:39:31 TSH, serum or plasma 2022 023 MEDARDO [facility], [address] [facility], [facility], [place], [address], 3 21:04:18 CBC w/ auto diff 2022 023 MEDARDO [facility], [address] [facility], [facility], [place], [address], 3 19:16:50 T4, free, serum 2022 023 MEDARDO [facility], [address], [place], [address], 3 20:43:40 T3, free, serum or plasma 2022 023 MEDARDO [facility], [address], [place], [address], 3 20:43:45 CMP, serum or plasma 2022 023 MEDARDO [facility], [address], [place], [address], 3 20:39:26 HbA1c (hemoglobin A1c), blood 2022 023 [email or web address] [facility], [address], [place], [address], 3 09:43:49 lipid panel, serum 2022 023 MEDARDO [facility], [address], [place], [address], 3 20:12:53 TSH, serum or plasma 2022 023 MEDARDO [facility], [address], [place], [address], 3 20:38:06 CBC w/ auto diff 2022 023 MEDARDO [facility], [address], [place], [address], 3 19:45:24 T4, free, serum 2022 023 MEDARDO [facility], [address], [place], [address], 3 20:26:41 T3, free, serum or plasma 2022 023 MEDARDO [facility], [address] [facility], [facility], [place], [address], 20:26:52 CMP, serum or plasma 2022 023 MEDARDO [facility], [address] [facility], [address], [place], [address], 20:12:51 Referral None recorded. Procedures None recorded. Surgeries None recorded. Imaging None recorded. Medication Orders omeprazole 40 mg capsule,del ayed release 2022 023 [email or web address] [id number], [address] [place], [address], 15:58:06 Patient TargetsNo targets recorded. Patient Instructions Encounter Date Encounter Id Patient Instructions Last Modified By Organization Details Last Modified Time 02/27/2023 [id number] dementia rating scale-2* Not available 02/27/2023 15:47:49 alcohol misuse* [email or web address] Not available 02/27/2023 15:47:49 depression screening* [email or web address] Not available 02/27/2023 15:47:49 Timed Up and Go test (TUG)* [email or web address] Not available 02/27/2023 15:47:49 multi-dimensiona l health assessment questionnaire* [email or web address] Not available 02/27/2023 15:47:49 Personalized [facility] Plan and Screening Recommendations Advance Directives - Do you have one? Yes Advance Directives - Do we have your advance directive on file in your health record? No, please bring in a copy at your earliest convenience Primary Prevention/Interven tion (prevents or decreases the chance of common diseases from occurring) Smoking Risk: Non Smoker Alcohol Misuse Screening: Negative Weight: Overweight try to lose 10% of your body weight Physical activity: Need more exercise/physical activity Nutrition: Average Refer to attached handout Heart-Healthy Diet: After Your Visit Refer to attached handout DASH Diet: After Your Visit Recommend consultation with a general farm manager Eat heart healthy diet Fall Risk (screened today): Intermediate Refer to attached handout Preventing Falls: After your Visit Recommend regular use of cane or walker Referral for physical therapy Referral for home health nurse evaluation Referral for home health nurse evaluation with physical therapy Recommend regular use of cane or walker as needed Vaccines Pneumococcal: No further needed Influenza: Your next one in the fall of this year Chronic Disease Risks Stroke: Low Risk I have no recommendations Heart Attack: Low risk I have no recommendations Clogging of the Arteries: Low risk I have no recommendations Diabetes: Low Risk I have no recommendations Secondary Prevention/Interven tion (detects treatable diseases before they may cause symptoms, disability, or ) Breast Cancer Screening with mammogram: Your next mammogram: Ordered Recommended today Recommended today, but you have declined No screening necessary up to date Cervical/Uterine/Ov shar Cancer Screening: No screening necessary Osteoporosis Screening: Your next DEXA in: Ordered Recomme nded today Recommended today, but you have declined No screening necessary up to date Date Screening Last Performed: Colon Cancer Screening: Colonoscopy Date Screening Last Performed: _2018 Eye Disease Screening: Ordered Recommended today Recommended today, but you have declined No Eye exam necessary Your next exam in: goes yearly Dementia Risk: Low I have no recommendations Depression Screening: Negative Recommend additional evaluation and/or treatment as noted above Recommend follow appointment to further evaluate Recommend Behavioral Health referral Active diagnosis, Continue current treatment plan I have no recommendations [email or web address] Not available 02/27/2023 14:16:22 Reason for Referral None Reported. Results Created Date Observation Date Name Description Value Unit Range Abnormal Flag Note LastModifiedBy Organization Detail LastModifiedTime 05/02/20 22 05/02/2022 TSH thyroid-stim ulating hormone 1.170 uIU/m L 0.465- 4.680 Not Available [facility] (Lab) [address] [place], [address], 05/02/2022 19:27:47 05/02/2005/02/2022 T3 FREE free T3 3.0 pg/mL 2.77-5 .27 Not Available [facility] (Lab) [address] [place], [address], 05/02/2022 19:19:37 05/02/20 22 05/02/2022 T4 FREE free T4 1.10 NG/dL 0.78-2 .19 Not Available [facility] (Lab) [address] [place], [address], 05/02/2022 19:19:36 05/02/20 22 05/02/2022 LIPID PANEL cholesterol 187 mg/dL 140-19 9 NIH JET NSUS RECOM MENDA TION FOR MOO STERO L: ADULT CHILD LOW RISK: <200 <170 BORDE RLINE : <200- 239 ----- HIGH RISK: >240 >200 Not Available [facility] (Lab) [address] [place], [address], 05/02/2022 19:06:43 05/02/20 22 05/02/2022 LIPID PANEL triglyceride s 128 mg/dL 0-150 NIH JET NSUS REPOR T RECOM MENDA TION FOR TRIGL YCERI GABY: ADULT CHILD LOW RISK: <150 ----- BODER LINE: 150-1 99 ----- HIGH RISK: >200 ----- Not Available [facility] (Lab) [address] [place], [address], 05/02/2022 19:06:43 05/02/20 22 05/02/2022 LIPID PANEL HDL cholesterol 59 mg/dL 40- Not Available [facility] (Lab) [address] [place], [address], 05/02/2022 19:06:43 05/02/20 22 05/02/2022 LIPID PANEL LDL cholesterol, calculated 102 mg/dL 0-130 NIH JET NSUS REPOR T RECOM MENDA TIONS FOR LDL: ADULT CHILD LOW RISK <130 <110 (OPTI MAL LDL) <100 ----- BORDE RLINE : 130-1 59 ----- HIGH RISK: >160 >130 A TRIGL YCERI DE RESUL T >400 INVAL IDATE S THE CALCU LATIO N FOR LDL FRACT IONAT ION - THE LDL RESUL T WILL NOT BE REPOR NOEMÍ. Not Available [facility] (Lab) [address] [place], [address], 05/02/2022 19:06:43 05/02/20 22 05/02/2022 COMPR EHENS JUAN METAB OLIC PANEL sodium 140 mmol/ L 137-14 5 Not Available [facility] (Lab) [address] [place], [address], 05/02/2022 19:06:42 05/02/20 22 05/02/2022 COMPR EHENS JUAN METAB OLIC PANEL potassium 4.9 mmol/ L 3.5-5. 1 Not Available [facility] (Lab) [address] [place], [address], 05/02/2022 19:06:42 05/02/20 22 05/02/2022 COMPR EHENS JUAN METAB OLIC PANEL chloride 107 mmol/ L 98-107 Not Available [facility] (Lab) [address] [place], [address], 05/02/2022 19:06:42 05/02/20 22 05/02/2022 COMPR EHENS JUAN METAB OLIC PANEL carbon dioxide 23 mmol/ L 22-30 Not Available [facility] (Lab) [address] [place], [address], 05/02/2022 19:06:42 05/02/20 22 05/02/2022 COMPR EHENS JUAN METAB OLIC PANEL anion gap 14.9 mmol/ L 14-22 Not Available [facility] (Lab) [address] [place], [address], 05/02/2022 19:06:42 05/02/20 22 05/02/2022 COMPR EHENS JUAN METAB OLIC PANEL glucose 76 mg/dL 70-99 Not Available [facility] (Lab) [address] [place], [address], 05/02/2022 19:06:42 05/02/20 22 05/02/2022 COMPR EHENS JUAN METAB OLIC PANEL BUN 13 mg/dL 8-19 Not Available [facility] (Lab) [address] [place], [address], 05/02/2022 19:06:42 05/02/20 22 05/02/2022 COMPR EHENS JUAN METAB OLIC PANEL creatinine 0.82 mg/dL 0.66-1 .25 Not Available [facility] (Lab) [address] [place], [address], 05/02/2022 19:06:42 05/02/20 22 05/02/2022 COMPR EHENS JUAN METAB OLIC PANEL GFR >60 Refer ence Range : [place] ge GFR Healt hy Adult : >60 mL/mi n/1.7 3 m2 Chron ic Kidne y Disea se: 15-60 mL/mi n/1.7 3 m2 Kidne y Failu re: <15/m L/min /1.73 m2 www.n iddk. nih.g ov The MDRD study equat ion has not been valid ated in child duong <18 years of age; pregn ant women ; the elder ly >85 years of age; or in some racia l or ethni c subgr oups, such as nj nics. Outsi de the valid ated tianna eters , estim ated GFR is less accur ate, requi ring clini emani judgm ent on a case- by-ca se basis . Clini emani inter preta tion for other races and ages must be made by the clini ruthy. The MDRD study equat ion has not been valid ated for the evalu ation of serum creat inine relat ed to nutri jd l statu s or medic ation usage . For perso ns <18 years of age, a pedia tric GFR calcu lator is avail able on the F websi te: https ://teresa kim.lavell barriga.o dante/pr ofess ional s/kdo qi/gf r_cal culat or Not Available [facility] (Lab) [address] [place], [address], 05/02/2022 19:06:42 05/02/20 22 05/02/2022 COMPR EHENS JUAN METAB OLIC PANEL alkaline phosphatase 92 U/L 38-126 Not Available [facility] (Lab) [address] [place], [address], 05/02/2022 19:06:42 05/02/20 22 05/02/2022 COMPR EHENS JUAN METAB OLIC PANEL alanine aminotransfe rase 9 U/L 0-35 Not Available [facility] (Lab) [address] [facility] [place], [address], 05/02/2022 19:06:42 05/02/20 22 05/02/2022 COMPR EHENS JUAN METAB OLIC PANEL aspartate aminotransfe rase 37 U/L 15-37 Not Available [facility] (Lab) [address] [place], [address], 05/02/2022 19:06:42 05/02/20 22 05/02/2022 COMPR EHENS JUAN METAB OLIC PANEL bilirubin, total 0.30 mg/dL 0.20-1 .30 Not Available [facility] (Lab) [address] [place], [address], 05/02/2022 19:06:42 05/02/20 22 05/02/2022 COMPR EHENS JUAN METAB OLIC PANEL calcium 9.8 mg/dL 8.4-10 .2 Not Available [facility] (Lab) [address] [place], [address], 05/02/2022 19:06:42 05/02/20 22 05/02/2022 COMPR EHENS JUAN METAB OLIC PANEL total protein 6.9 g/dL 6.3-8. 2 Not Available [facility] (Lab) [address] [place], [address], 05/02/2022 19:06:42 05/02/20 22 05/02/2022 COMPR EHENS JUAN METAB OLIC PANEL albumin 4.3 g/dL 3.0-4. 4 Not Available [facility] (Lab) [address] [place], [address], 05/02/2022 19:06:42 05/02/20 22 05/02/2022 COMPR EHENS JUAN METAB OLIC PANEL globulin 2.6 g/dL 2.6-4. 2 Not Available [facility] (Lab) [address] [place], [address], 05/02/2022 19:06:42 05/02/20 22 05/02/2022 COMPR EHENS JUAN METAB OLIC PANEL A/G ratio 1.7 ratio 1.0-2. 0 Not Available [facility] (Lab) [address] [facility] [place], [address], 05/02/2022 19:06:42 05/02/20 22 05/02/2022 CBC/C OMPLE TE BLD COUNT W/DIF F white blood cells 6.3 x10'3 /uL 4.2-10 .8 Not Available [facility] (Lab) [address] [place], [address], 05/02/2022 19:04:49 05/02/20 22 05/02/2022 CBC/C OMPLE TE BLD COUNT W/DIF F red blood cells 4.03 x10'6 /uL 3.80-5 .20 Not Available [facility] (Lab) [address] [place], [address], 05/02/2022 19:04:49 05/02/20 22 05/02/2022 CBC/C OMPLE TE BLD COUNT W/DIF F hemoglobin 13.1 g/dL 12.0-1 5.6 Not Available [facility] (Lab) [address] [place], [address], 05/02/2022 19:04:49 05/02/20 22 05/02/2022 CBC/C OMPLE TE BLD COUNT W/DIF F hematocrit 40.1 % 35.7-4 5.7 Not Available [facility] (Lab) [address] [place], [address], 05/02/2022 19:04:49 05/02/20 22 05/02/2022 CBC/C OMPLE TE BLD COUNT W/DIF F mean red cell volume 99.5 fL 82.0-9 9.0 high Not Available [facility] (Lab) [address] [place], [address], 05/02/2022 19:04:49 05/02/20 22 05/02/2022 CBC/C OMPLE TE BLD COUNT W/DIF F mean red cell hemoglobin 32.5 pg 27.0-3 3.0 Not Available [facility] (Lab) [address] [place], [address], 05/02/2022 19:04:49 05/02/20 22 05/02/2022 CBC/C OMPLE TE BLD COUNT W/DIF F mean RBC HGB concentratio n 32.7 g/dL 31.0-3 6.0 Not Available [facility] (Lab) [address] [place], [address], 05/02/2022 19:04:49 05/02/20 22 05/02/2022 CBC/C OMPLE TE BLD COUNT W/DIF F red cell distribution width 12.4 % 11.8-1 5.5 Not Available [facility] (Lab) [address] [place], [address], 05/02/2022 19:04:49 05/02/20 22 05/02/2022 CBC/C OMPLE TE BLD COUNT W/DIF F platelets 291 x10'3 /uL 150-40 0 Not Available [facility] (Lab) [address] [place], [address], 05/02/2022 19:04:49 05/02/20 22 05/02/2022 CBC/C OMPLE TE BLD COUNT W/DIF F mean platelet volume 11.5 fL 9.0-12 .4 Not Available [facility] (Lab) [address] [place], [address], 05/02/2022 19:04:49 05/02/20 22 05/02/2022 CBC/C OMPLE TE BLD COUNT W/DIF F neutrophils 48.9 % 39.0-7 2.0 Not Available [facility] (Lab) [address] [place], [address], 05/02/2022 19:04:49 05/02/20 22 05/02/2022 CBC/C OMPLE TE BLD COUNT W/DIF F lymphocytes 39.3 % 16.0-4 7.0 Not Available [facility] (Lab) [address] [place], [address], 05/02/2022 19:04:49 05/02/20 22 05/02/2022 CBC/C OMPLE TE BLD COUNT W/DIF F monocytes 9.5 % 5.0-12 .0 Not Available [facility] (Lab) [address] [place], [address], 05/02/2022 19:04:49 05/02/20 22 05/02/2022 CBC/C OMPLE TE BLD COUNT W/DIF F eosinophils 1.7 % 1.0-7. 0 Not Available [facility] (Lab) [address] [place], [address], 05/02/2022 19:04:49 05/02/20 22 05/02/2022 CBC/C OMPLE TE BLD COUNT W/DIF F basophils 0.3 % 0.0-2. 0 Not Available [facility] (Lab) [address] [place], [address], 05/02/2022 19:04:49 05/02/20 22 05/02/2022 CBC/C OMPLE TE BLD COUNT W/DIF F immature granulocytes 0.3 % 0.00-0 .50 Not Available [facility] (Lab) [address] [place], [address], 05/02/2022 19:04:49 05/02/20 22 05/02/2022 CBC/C OMPLE TE BLD COUNT W/DIF F neutrophils, absolute count 3.10 x10'3 /uL 1.5-8. 0 Not Available [facility] (Lab) [address] [place], [address], 05/02/2022 19:04:49 05/02/20 22 05/02/2022 CBC/C OMPLE TE BLD COUNT W/DIF F lymphocytes, absolute count 2.49 x10'3 /uL 1.07-3 .43 Not Available [facility] (Lab) [address] [place], [address], 05/02/2022 19:04:49 05/02/20 22 05/02/2022 CBC/C OMPLE TE BLD COUNT W/DIF F monocytes, absolute count 0.60 x10'3 /uL 0.29-0 .99 Not Available [facility] (Lab) [address] [place], [address], 05/02/2022 19:04:49 05/02/20 22 05/02/2022 CBC/C OMPLE TE BLD COUNT W/DIF F eosinophils, absolute count 0.11 x10'3 /uL 0.02-0 .53 Not Available [facility] (Lab) [address] [place], [address], 05/02/2022 19:04:49 05/02/20 22 05/02/2022 CBC/C OMPLE TE BLD COUNT W/DIF F basophils, absolute count 0.02 x10'3 /uL 0.01-0 .08 Not Available [facility] (Lab) [address] [place], [address], 05/02/2022 19:04:49 05/02/20 22 05/02/2022 CBC/C OMPLE TE BLD COUNT W/DIF F immature granulocytes ,absolute 0.02 x10'3 /uL 0.00-0 .05 Not Available [facility] (Lab) [address] [place], [address], 05/02/2022 19:04:49 05/02/20 22 05/02/2022 CBC/C OMPLE TE BLD COUNT W/DIF F nucleated red blood cells 0.0 % -0 Not Available [facility] (Lab) [address] [place], [address], 05/02/2022 19:04:49 05/02/20 22 05/02/2022 CBC/C OMPLE TE BLD COUNT W/DIF F NRBC# 0.00 x10'3 /uL Not Available [facility] (Lab) [address] [place], [address], 05/02/2022 19:04:49 02/28/20 23 02/27/2023 CBC/C OMPLE TE BLD COUNT W/DIF F white blood cells 6.4 x10'3 /uL 4.2-10 .8 Not Available [facility] (Lab) [address] [place], [address], 02/27/2023 19:45:23 02/28/20 23 02/27/2023 CBC/C OMPLE TE BLD COUNT W/DIF F red blood cells 3.92 x10'6 /uL 3.80-5 .20 Not Available [facility] (Lab) [address] [place], [address], 02/27/2023 19:45:23 02/28/20 23 02/27/2023 CBC/C OMPLE TE BLD COUNT W/DIF F hemoglobin 12.7 g/dL 12.0-1 5.6 Not Available [facility] (Lab) [address] [place], [address], 02/27/2023 19:45:23 02/28/20 23 02/27/2023 CBC/C OMPLE TE BLD COUNT W/DIF F hematocrit 38.5 % 35.7-4 5.7 Not Available [facility] (Lab) [address] [place], [address], 02/27/2023 19:45:23 02/28/20 23 02/27/2023 CBC/C OMPLE TE BLD COUNT W/DIF F mean red cell volume 98.2 fL 82.0-9 9.0 Not Available [facility] (Lab) [address] [place], [address], 02/27/2023 19:45:23 02/28/20 23 02/27/2023 CBC/C OMPLE TE BLD COUNT W/DIF F mean red cell hemoglobin 32.4 pg 27.0-3 3.0 Not Available [facility] (Lab) [address] [place], [address], 02/27/2023 19:45:23 02/28/20 23 02/27/2023 CBC/C OMPLE TE BLD COUNT W/DIF F mean RBC HGB concentratio n 33.0 g/dL 31.0-3 6.0 Not Available [facility] (Lab) [address] [place], [address], 02/27/2023 19:45:23 02/28/20 23 02/27/2023 CBC/C OMPLE TE BLD COUNT W/DIF F red cell distribution width 12.9 % 11.8-1 5.5 Not Available [facility] (Lab) [address] [place], [address], 02/27/2023 19:45:23 02/28/20 23 02/27/2023 CBC/C OMPLE TE BLD COUNT W/DIF F platelets 322 x10'3 /uL 150-40 0 Not Available [facility] (Lab) [address] [place], [address], 02/27/2023 19:45:23 02/28/20 23 02/27/2023 CBC/C OMPLE TE BLD COUNT W/DIF F mean platelet volume 11.4 fL 9.0-12 .4 Not Available [facility] (Lab) [address] [place], [address], 02/27/2023 19:45:23 02/28/2002/27/2023 CBC/C OMPLE TE BLD COUNT W/DIF F neutrophils 44.1 % 39.0-7 2.0 Not Available [facility] (Lab) [address] [place], [address], 02/27/2023 19:45:23 02/28/20 23 02/27/2023 CBC/C OMPLE TE BLD COUNT W/DIF F lymphocytes 44.0 % 16.0-4 7.0 Not Available [facility] (Lab) [address] [place], [address], 02/27/2023 19:45:23 02/28/20 23 02/27/2023 CBC/C OMPLE TE BLD COUNT W/DIF F monocytes 10.0 % 5.0-12 .0 Not Available [facility] (Lab) [address] [place], [address], 02/27/2023 19:45:23 02/28/2002/27/2023 CBC/C OMPLE TE BLD COUNT W/DIF F eosinophils 1.2 % 1.0-7. 0 Not Available [facility] (Lab) [address] [place], [address], 02/27/2023 19:45:23 02/28/2002/27/2023 CBC/C OMPLE TE BLD COUNT W/DIF F basophils 0.5 % 0.0-2. 0 Not Available [facility] (Lab) [address] [place], [address], 02/27/2023 19:45:23 02/28/20 23 02/27/2023 CBC/C OMPLE TE BLD COUNT W/DIF F immature granulocytes 0.2 % 0.00-0 .50 Not Available [facility] (Lab) [address] [place], [address], 02/27/2023 19:45:23 02/28/2002/27/2023 CBC/C OMPLE TE BLD COUNT W/DIF F neutrophils, absolute count 2.84 x10'3 /uL 1.5-8. 0 Not Available [facility] (Lab) [address] [place], [address], 02/27/2023 19:45:23 02/28/20 23 02/27/2023 CBC/C OMPLE TE BLD COUNT W/DIF F lymphocytes, absolute count 2.83 x10'3 /uL 1.07-3 .43 Not Available [facility] (Lab) [address] [place], [address], 02/27/2023 19:45:23 02/28/20 23 02/27/2023 CBC/C OMPLE TE BLD COUNT W/DIF F monocytes, absolute count 0.64 x10'3 /uL 0.29-0 .99 Not Available [facility] (Lab) [address] [place], [address], 02/27/2023 19:45:23 02/28/2002/27/2023 CBC/C OMPLE TE BLD COUNT W/DIF F eosinophils, absolute count 0.08 x10'3 /uL 0.02-0 .53 Not Available [facility] (Lab) [address] [place], [address], 02/27/2023 19:45:23 02/28/20 23 02/27/2023 CBC/C OMPLE TE BLD COUNT W/DIF F basophils, absolute count 0.03 x10'3 /uL 0.01-0 .08 Not Available [facility] (Lab) [address] [place], [address], 02/27/2023 19:45:23 02/28/20 23 02/27/2023 CBC/C OMPLE TE BLD COUNT W/DIF F immature granulocytes ,absolute 0.01 x10'3 /uL 0.00-0 .05 Not Available [facility] (Lab) [address] [place], [address], 02/27/2023 19:45:23 02/28/20 23 02/27/2023 CBC/C OMPLE TE BLD COUNT W/DIF F nucleated red blood cells 0.0 % -0 Not Available [facility] (Lab) [address] [place], [address], 02/27/2023 19:45:23 02/28/20 23 02/27/2023 CBC/C OMPLE TE BLD COUNT W/DIF F NRBC# 0.00 x10'3 /uL Not Available [facility] (Lab) [address] [place], [address], 02/27/2023 19:45:23 02/28/20 23 02/27/2023 COMPR EHENS JUAN METAB OLIC PANEL sodium 141 mmol/ L 137-14 5 Not Available [facility] (Lab) [address] [place], [address], 02/27/2023 20:12:51 02/28/2002/27/2023 COMPR EHENS JUAN METAB OLIC PANEL potassium 5.1 mmol/ L 3.5-5. 1 Not Available [facility] (Lab) [address] [place], [address], 02/27/2023 20:12:51 02/28/20 23 02/27/2023 COMPR EHENS JUAN METAB OLIC PANEL chloride 108 mmol/ L 98-107 high Not Available [facility] (Lab) [address] [place], [address], 02/27/2023 20:12:51 02/28/20 23 02/27/2023 COMPR EHENS JUNA METAB OLIC PANEL carbon dioxide 23 mmol/ L 22-30 Not Available [facility] (Lab) [address] [place], [address], 02/27/2023 20:12:51 02/28/20 23 02/27/2023 COMPR EHENS JUAN METAB OLIC PANEL anion gap 15.1 mmol/ L 14-22 Not Available [facility] (Lab) [address] [place], [address], 02/27/2023 20:12:51 02/28/20 23 02/27/2023 COMPR EHENS JUAN METAB OLIC PANEL glucose 92 mg/dL 70-99 Not Available [facility] (Lab) [address] [place], [address], 02/27/2023 20:12:51 02/28/20 23 02/27/2023 COMPR EHENS JUAN METAB OLIC PANEL BUN 17 mg/dL 8-19 Not Available [facility] (Lab) [address] [place], [address], 02/27/2023 20:12:51 02/28/20 23 02/27/2023 COMPR EHENS JUAN METAB OLIC PANEL creatinine 0.83 mg/dL 0.66-1 .25 Not Available [facility] (Lab) [address] [place], [address], 02/27/2023 20:12:51 02/28/20 23 02/27/2023 COMPR EHENS JUAN METAB OLIC PANEL GFR >60 Refer ence Range : [place] ge GFR Healt hy Adult : >60 mL/mi n/1.7 3 m2 Chron ic Kidne y Disea se: 15-60 mL/mi n/1.7 3 m2 Kidne y Failu re: <15/m L/min /1.73 m2 [email or web address] The MDRD study equat ion has not been valid ated in child duong <18 years of age; pregn ant women ; the elder ly >85 years of age; or in some racia l or ethni c subgr oups, such as Hispa nics. Outsi de the valid ated tianna eters , estim ated GFR is less accur ate, requi ring clini emani judgm ent on a case- by-ca se basis . Clini emani inter preta tion for other races and ages must be made by the clini ruthy. The MDRD study equat ion has not been valid ated for the evalu ation of serum creat inine relat ed to nutri jd l statu s or medic ation usage . For perso ns <18 years of age, a pedia tric GFR calcu lator is avail able on the [facility] websi te: [email or web address] :[email or web address] ofess ional s/kdo qi/gf r_cal culat or Not Available [facility] (Lab) [address] [place], [address], 02/27/2023 20:12:51 02/28/20 23 02/27/2023 COMPR EHENS JUAN METAB OLIC PANEL alkaline phosphatase 71 U/L 38-126 Not Available [facility] (Lab) [address] [place], [address], 02/27/2023 20:12:51 02/28/20 23 02/27/2023 COMPR EHENS JUAN METAB OLIC PANEL alanine aminotransfe rase 11 U/L 0-35 Not Available [facility] (Lab) [address] [place], [address], 02/27/2023 20:12:51 02/28/20 23 02/27/2023 COMPR EHENS JUAN METAB OLIC PANEL aspartate aminotransfe rase 31 U/L 15-37 Not Available [facility] (Lab) [address] [place], [address], 02/27/2023 20:12:51 02/28/20 23 02/27/2023 COMPR EHENS JUAN METAB OLIC PANEL bilirubin, total 0.40 mg/dL 0.20-1 .30 Not Available [facility] (Lab) [address] [place], [address], 02/27/2023 20:12:51 02/28/20 23 02/27/2023 COMPR EHENS JUAN METAB OLIC PANEL calcium 9.5 mg/dL 8.4-10 .2 Not Available [facility] (Lab) [address] [place], [address], 02/27/2023 20:12:51 02/28/20 23 02/27/2023 COMPR EHENS JUAN METAB OLIC PANEL total protein 6.7 g/dL 6.3-8. 2 Not Available [facility] (Lab) [address] [place], [address], 02/27/2023 20:12:51 02/28/20 23 02/27/2023 COMPR EHENS JUAN METAB OLIC PANEL albumin 4.0 g/dL 3.0-4. 4 Not Available [facility] (Lab) [address] [place], [address], 02/27/2023 20:12:51 02/28/20 23 02/27/2023 COMPR EHENS JUAN METAB OLIC PANEL globulin 2.7 g/dL 2.6-4. 2 Not Available [facility] (Lab) [address] [place], [address], 02/27/2023 20:12:51 02/28/20 23 02/27/2023 COMPR EHENS JUAN METAB OLIC PANEL A/G ratio 1.5 ratio 1.0-2. 0 Not Available [facility] (Lab) [address] [place], [address], 02/27/2023 20:12:51 02/28/2002/27/2023 LIPID PANEL cholesterol 187 mg/dL 140-19 9 NIH JET NSUS RECOM MENDA TION FOR MOO STERO L: ADULT CHILD LOW RISK: <200 <170 BORDE RLINE : <200- 239 ----- HIGH RISK: >240 >200 Not Available [facility] (Lab) [address] [place], [address], 02/27/2023 20:12:53 02/28/2002/27/2023 LIPID PANEL triglyceride s 94 mg/dL 0-150 NIH JET NSUS REPOR T RECOM MENDA TION FOR TRIGL YCERI GABY: ADULT CHILD LOW RISK: <150 ----- BODER LINE: 150-1 99 ----- HIGH RISK: >200 ----- Not Available [facility] (Lab) [address] [place], [address], 02/27/2023 20:12:53 02/28/2002/27/2023 LIPID PANEL HDL cholesterol 56 mg/dL 40- Not Available [facility] (Lab) [address] [place], [address], 02/27/2023 20:12:53 02/28/2002/27/2023 LIPID PANEL LDL cholesterol, calculated 112 mg/dL 0-130 NIH JET NSUS REPOR T RECOM MENDA TIONS FOR LDL: ADULT CHILD LOW RISK <130 <110 (OPTI MAL LDL) <100 ----- BORDE RLINE : 130-1 59 ----- HIGH RISK: >160 >130 A TRIGL YCERI DE RESUL T >400 INVAL IDATE S THE CALCU LATIO N FOR LDL FRACT IONAT ION - THE LDL RESUL T WILL NOT BE REPOR NOEMÍ. Not Available [facility] (Lab) [address] [place], [address], 02/27/2023 20:12:53 02/28/20 23 02/27/2023 T4 FREE free T4 1.00 NG/dL 0.78-2 .19 Not Available [facility] (Lab) [address] [place], [address], 02/27/2023 20:26:41 02/28/20 23 02/27/2023 T3 FREE free T3 3.1 pg/mL 2.77-5 .27 Not Available [facility] (Lab) [address] [place], [address], 02/27/2023 20:26:52 02/28/2002/27/2023 TSH thyroid-stim ulating hormone 0.960 uIU/m L 0.465- 4.680 Not Available [facility] (Lab) [address] [place], [address], 02/27/2023 20:38:06 02/28/2002/27/2023 HEMOG LOBIN A1C HA1C 5.6 % 4.0-6. 0 Diabe michael Scree sherice Crite jaye: <5.7% Consi stent with absen ce of diabe michael 5.7-6 .4% Consi stent with incre ased risk for diabe michael (pred iabet es) >OR=6 .5% Consi stent with diabe michael REFER ENCE: Diabe michael Care 2016, 39(Motta ppl.1 ):s13 -s22 Not Available [facility] (Lab) [address] [place], [address], 02/27/2023 21:48:53 09/18/20 23 09/18/2023 CBC/C OMPLE TE BLD COUNT W/DIF F white blood cells 5.5 x10'3 /uL 4.2-10 .8 Not Available [facility] (Lab) [address] [place], [address], 09/18/2023 19:16:50 09/18/20 23 09/18/2023 CBC/C OMPLE TE BLD COUNT W/DIF F red blood cells 4.06 x10'6 /uL 3.80-5 .20 Not Available [facility] (Lab) [address] [place], [address], 09/18/2023 19:16:50 09/18/20 23 09/18/2023 CBC/C OMPLE TE BLD COUNT W/DIF F hemoglobin 13.7 g/dL 12.0-1 5.6 Not Available [facility] (Lab) [address] [place], [address], 09/18/2023 19:16:50 09/18/20 23 09/18/2023 CBC/C OMPLE TE BLD COUNT W/DIF F hematocrit 40.4 % 35.7-4 5.7 Not Available [facility] (Lab) [address] [place], [address], 09/18/2023 19:16:50 09/18/20 23 09/18/2023 CBC/C OMPLE TE BLD COUNT W/DIF F mean red cell volume 99.5 fL 82.0-9 9.0 high Not Available [facility] (Lab) [address] [place], [address], 09/18/2023 19:16:50 09/18/20 23 09/18/2023 CBC/C OMPLE TE BLD COUNT W/DIF F mean red cell hemoglobin 33.7 pg 27.0-3 3.0 high Not Available [facility] (Lab) [address] [place], [address], 09/18/2023 19:16:50 09/18/20 23 09/18/2023 CBC/C OMPLE TE BLD COUNT W/DIF F mean RBC HGB concentratio n 33.9 g/dL 31.0-3 6.0 Not Available [facility] (Lab) [address] [place], [address], 09/18/2023 19:16:50 09/18/20 23 09/18/2023 CBC/C OMPLE TE BLD COUNT W/DIF F red cell distribution width 12.7 % 11.8-1 5.5 Not Available [facility] (Lab) [address] [place], [address], 09/18/2023 19:16:50 09/18/20 23 09/18/2023 CBC/C OMPLE TE BLD COUNT W/DIF F platelets 274 x10'3 /uL 150-40 0 Not Available [facility] (Lab) [address] [place], [address], 09/18/2023 19:16:50 09/18/20 23 09/18/2023 CBC/C OMPLE TE BLD COUNT W/DIF F mean platelet volume 11.4 fL 9.0-12 .4 Not Available [facility] (Lab) [address] [place], [address], 09/18/2023 19:16:50 09/18/20 23 09/18/2023 CBC/C OMPLE TE BLD COUNT W/DIF F neutrophils 48.0 % 39.0-7 2.0 Not Available [facility] (Lab) [address] [place], [address], 09/18/2023 19:16:50 09/18/20 23 09/18/2023 CBC/C OMPLE TE BLD COUNT W/DIF F lymphocytes 42.4 % 16.0-4 7.0 Not Available [facility] (Lab) [address] [place], [address], 09/18/2023 19:16:50 09/18/20 23 09/18/2023 CBC/C OMPLE TE BLD COUNT W/DIF F monocytes 7.2 % 5.0-12 .0 Not Available [facility] (Lab) [address] [place], [address], 09/18/2023 19:16:50 09/18/20 23 09/18/2023 CBC/C OMPLE TE BLD COUNT W/DIF F eosinophils 1.8 % 1.0-7. 0 Not Available [facility] (Lab) [address] [place], [address], 09/18/2023 19:16:50 09/18/20 23 09/18/2023 CBC/C OMPLE TE BLD COUNT W/DIF F basophils 0.4 % 0.0-2. 0 Not Available [facility] (Lab) [address] [place], [address], 09/18/2023 19:16:50 09/18/20 23 09/18/2023 CBC/C OMPLE TE BLD COUNT W/DIF F immature granulocytes 0.2 % 0.00-0 .50 Not Available [facility] (Lab) [address] [place], [address], 09/18/2023 19:16:50 09/18/20 23 09/18/2023 CBC/C OMPLE TE BLD COUNT W/DIF F neutrophils, absolute count 2.65 x10'3 /uL 1.5-8. 0 Not Available [facility] (Lab) [address] [place], [address], 09/18/2023 19:16:50 09/18/20 23 09/18/2023 CBC/C OMPLE TE BLD COUNT W/DIF F lymphocytes, absolute count 2.34 x10'3 /uL 1.07-3 .43 Not Available [facility] (Lab) [address] [place], [address], 09/18/2023 19:16:50 09/18/20 23 09/18/2023 CBC/C OMPLE TE BLD COUNT W/DIF F monocytes, absolute count 0.40 x10'3 /uL 0.29-0 .99 Not Available [facility] (Lab) [address] [place], [address], 09/18/2023 19:16:50 09/18/20 23 09/18/2023 CBC/C OMPLE TE BLD COUNT W/DIF F eosinophils, absolute count 0.10 x10'3 /uL 0.02-0 .53 Not Available [facility] (Lab) [address] [place], [address], 09/18/2023 19:16:50 09/18/20 23 09/18/2023 CBC/C OMPLE TE BLD COUNT W/DIF F basophils, absolute count 0.02 x10'3 /uL 0.01-0 .08 Not Available [facility] (Lab) [address] [place], [address], 09/18/2023 19:16:50 09/18/20 23 09/18/2023 CBC/C OMPLE TE BLD COUNT W/DIF F immature granulocytes ,absolute 0.01 x10'3 /uL 0.00-0 .05 Not Available [facility] (Lab) [address] [place], [address], 09/18/2023 19:16:50 09/18/20 23 09/18/2023 CBC/C OMPLE TE BLD COUNT W/DIF F nucleated red blood cells 0.0 % -0 Not Available [facility] (Lab) [address] [place], [address], 09/18/2023 19:16:50 09/18/20 23 09/18/2023 CBC/C OMPLE TE BLD COUNT W/DIF F NRBC# 0.00 x10'3 /uL Not Available [facility] (Lab) [address] [place], [address], 09/18/2023 19:16:50 09/18/20 23 09/18/2023 COMPR EHENS JUAN METAB OLIC PANEL sodium 140 mmol/ L 137-14 5 Not Available [facility] (Lab) [address] [place], [address], 09/18/2023 20:39:26 09/18/20 23 09/18/2023 COMPR EHENS JUAN METAB OLIC PANEL potassium 4.4 mmol/ L 3.5-5. 1 Not Available [facility] (Lab) [address] [place], [address], 09/18/2023 20:39:26 09/18/20 23 09/18/2023 COMPR EHENS JUAN METAB OLIC PANEL chloride 108 mmol/ L 98-107 high Not Available [facility] (Lab) [address] [place], [address], 09/18/2023 20:39:26 09/18/20 23 09/18/2023 COMPR EHENS JUAN METAB OLIC PANEL carbon dioxide 24 mmol/ L 22-30 Not Available [facility] (Lab) [address] [place], [address], 09/18/2023 20:39:26 09/18/20 23 09/18/2023 COMPR EHENS JUAN METAB OLIC PANEL anion gap 12.4 mmol/ L 14-22 low Not Available [facility] (Lab) [address] [place], [address], 09/18/2023 20:39:26 09/18/20 23 09/18/2023 COMPR EHENS JUAN METAB OLIC PANEL glucose 105 mg/dL 70-99 high Not Available [facility] (Lab) [address] [place], [address], 09/18/2023 20:39:26 09/18/20 23 09/18/2023 COMPR EHENS JUAN METAB OLIC PANEL BUN 10 mg/dL 8-19 Not Available [facility] (Lab) [address] [place], [address], 09/18/2023 20:39:26 09/18/20 23 09/18/2023 COMPR EHENS JUAN METAB OLIC PANEL creatinine 0.67 mg/dL 0.66-1 .25 Not Available [facility] (Lab) [address] [place], [address], 09/18/2023 20:39:26 09/18/20 23 09/18/2023 COMPR EHENS JUAN METAB OLIC PANEL GFR >60 Refer ence Range : [place] ge GFR Healt hy Adult : >60 mL/mi n/1.7 3 m2 Chron ic Kidne y Disea se: 15-60 mL/mi n/1.7 3 m2 Kidne y Failu re: <15/m L/min /1.73 m2 www.n iddk. nih.g ov The MDRD study equat ion has not been valid ated in child duong <18 years of age; pregn ant women ; the elder ly >85 years of age; or in some racia l or ethni c subgr oups, such as Hisnj nics. Outsi de the valid ated tianna eters , estim ated GFR is less accur ate, requi ring clini emani judgm ent on a case- by-ca se basis . Clini emani inter preta tion for other races and ages must be made by the clini ruthy. The MDRD study equat ion has not been valid ated for the evalu ation of serum creat inine relat ed to nutri jd l statu s or medic ation usage . For perso ns <18 years of age, a pedia tric GFR calcu lator is avail able on the F websi te: https ://teresa w.kid linus.o rg/pr ofess ional s/kdo qi/gf r_cal culat or Not Available [facility] (Lab) [address] [place], [address], 09/18/2023 20:39:26 09/18/20 23 09/18/2023 COMPR EHENS JUAN METAB OLIC PANEL alkaline phosphatase 88 U/L 38-126 Not Available [facility] (Lab) [address] [place], [address], 09/18/2023 20:39:26 09/18/20 23 09/18/2023 COMPR EHENS JUAN METAB OLIC PANEL alanine aminotransfe rase 9 U/L 0-35 Not Available [facility] (Lab) [address] [place], [address], 09/18/2023 20:39:26 09/18/20 23 09/18/2023 COMPR EHENS JUAN METAB OLIC PANEL aspartate aminotransfe rase 29 U/L 15-37 Not Available [facility] (Lab) [address] [place], [address], 09/18/2023 20:39:26 09/18/20 23 09/18/2023 COMPR EHENS JUAN METAB OLIC PANEL bilirubin, total 0.50 mg/dL 0.20-1 .30 Not Available [facility] (Lab) [address] [place], [address], 09/18/2023 20:39:26 09/18/20 23 09/18/2023 COMPR EHENS JUAN METAB OLIC PANEL calcium 9.7 mg/dL 8.4-10 .2 Not Available [facility] (Lab) [address] [place], [address], 09/18/2023 20:39:26 09/18/20 23 09/18/2023 COMPR EHENS JUAN METAB OLIC PANEL total protein 7.0 g/dL 6.3-8. 2 Not Available [facility] (Lab) [address] [place], [address], 09/18/2023 20:39:26 09/18/20 23 09/18/2023 COMPR EHENS JUAN METAB OLIC PANEL albumin 4.1 g/dL 3.0-4. 4 Not Available [facility] (Lab) [address] [place], [address], 09/18/2023 20:39:26 09/18/20 23 09/18/2023 COMPR EHENS JUAN METAB OLIC PANEL globulin 2.9 g/dL 2.6-4. 2 Not Available [facility] (Lab) [address] [place] [address], [address], 09/18/2023 20:39:26 09/18/20 23 09/18/2023 COMPR EHENS JUAN METAB OLIC PANEL A/G ratio 1.4 ratio 1.0-2. 0 Not Available [facility] (Lab) [address] [place] [address], [address], 09/18/2023 20:39:26 09/18/20 23 09/18/2023 LIPID PANEL cholesterol 183 mg/dL 140-19 9 NIH JET NSUS RECOM MENDA TION FOR MOO STERO L: ADULT CHILD LOW RISK: <200 <170 BORDE RLINE : <200- 239 ----- HIGH RISK: >240 >200 Not Available [facility] (Lab) [address] [place], [address], 09/18/2023 20:39:31 09/18/20 23 09/18/2023 LIPID PANEL triglyceride s 150 mg/dL 0-150 NIH JET NSUS REPOR T RECOM MENDA TION FOR TRIGL YCERI GABY: ADULT CHILD LOW RISK: <150 ----- BODER LINE: 150-1 99 ----- HIGH RISK: >200 ----- Not Available [facility] (Lab) [address] [place], [address], 09/18/2023 20:39:31 09/18/20 23 09/18/2023 LIPID PANEL HDL cholesterol 51 mg/dL 40- Not Available [facility] (Lab) [address] [place] [address], [address], 09/18/2023 20:39:31 09/18/20 23 09/18/2023 LIPID PANEL LDL cholesterol, calculated 102 mg/dL 0-130 NIH JET NSUS REPOR T RECOM MENDA TIONS FOR LDL: ADULT CHILD LOW RISK <130 <110 (OPTI MAL LDL) <100 ----- BORDE RLINE : 130-1 59 ----- HIGH RISK: >160 >130 A TRIGL YCERI DE RESUL T >400 INVAL IDATE S THE CALCU LATIO N FOR LDL FRACT IONAT ION - THE LDL RESUL T WILL NOT BE REPOR NOEMÍ. Not Available [facility] (Lab) [address] [place], [address], 09/18/2023 20:39:31 09/18/20 23 09/18/2023 T4 FREE free T4 1.07 NG/dL 0.78-2 .19 Not Available [facility] (Lab) [address] [place], [address], 09/18/2023 20:43:40 09/18/20 23 09/18/2023 T3 FREE free T3 3.2 pg/mL 2.77-5 .27 Not Available [facility] (Lab) [address] [place], [address], 09/18/2023 20:43:45 09/18/20 23 09/18/2023 TSH thyroid-stim ulating hormone 0.916 uIU/m L 0.465- 4.680 Not Available [facility] (Lab) [address] [place], [address], 09/18/2023 21:04:18 09/18/20 23 09/18/2023 HEMOG LOBIN A1C HA1C 5.3 % 4.0-6. 0 Diabe michael Scree sherice Crite jaye: <5.7% Consi stent with absen ce of diabe michael 5.7-6 .4% Consi stent with incre ased risk for diabe michael (pred iabet es) >OR=6 .5% Consi stent with diabe michael REFER ENCE: Diabe michael Care 2016, 39(Motta ppl.1 ):s13 -s22 Not Available [facility] (Lab) [address] [facility] [place], [address], 09/18/2023 21:17:41 11/14/19 22 MAMMO , scree sherice, digit al, bilat eral [facility] [address], [place] [address] Patisheree t Name: TONYA GUNTER Access ion #: [id number] Sex: F : 1949 6 Locati on: RA2 Attend ing Physic zhane: RADHA STEARNS Orderi ng Physic zhane: RADHA STEARNS Exam Date: 11/14/19 12:15 PM Exam Name: DIGITA L DAVION BILAT SCREEN Admitt ing Diagno sis(es ): RADIOL OGY REPORT - FINAL EXAM: MG DIGITA L DAVION BILAT SCREEN HISTOR Y: Screen ing mammog nelson 71-yea r-old female with no curren t breast compla ints. COMPAR ZACH: None availa ble. TECHNI QUE: Bilate ral CC and MLO views of the breast s were perfor med. Digita l Mammog mikael images were obtain ed. CAD (compu ter assist ed detect ion) was utiliz ed. FINDIN GS: The breast s are hetero geneou sly dense, which may obscur e small masses . The right breast is diffus reyna more dense than the left. There are typica lly benign calcif icatio ns in both breast s, more so on the right. Page 1 of 2 [facility] t Name: TONYA GUNTER Access ion #: [id number] Sex: F : 1949 8 Exam Date: 11/14/19 12:15 PM Exam Name: DIGITA L DAVION BILAT SCREEN Admitt ing Diagno sis(es ): No masses , asymme tries, suspic ious calcif icatio ns, or mike ectura l distor tion are seen. IMPRES JIMY: BIRADS 2: Assess ment comple te. Benign findin gs. Recomm end annual screen ing mammog mikael. Accord ing to the [employer], yearly mammog juju are recomm ended starti ng at age 40 and contin uing as long as the woman is in good health . Clinic al Breast Exam should be part of the period ic health exam-a bout every 3 years for women in their 20s and 30s and every year for women 40 and over. Breast self-e xam is an option for women in their 20s. Any breast change noted on the breast self-e xam she would be report ed prompt ly to the [facility]. A negati ve mammog mikael report should not discou rage follow -up or biopsy of a clinic ally signif icant findin g and/or abnorm ality. Dense breast tissue may obscur e small neopla sms. This [facility] has been entere d into a mammog mikael remind er system with a target date for her next mammog nelson. Create d and electr onical ly signed by: Salvatore herbert MD Signed Date: 11/14/19 4:36 PM (CT) Dictat ed by: Salvatore herbert MD (CT) (CT) Page 2 of 2 [id number] [facility] (Imaging) [address] [place], [address], 12/06/2022 23:58:23 11/14/19 22 DEXA, axial skele ton [facility] [address] [place] [address] [facility] Name: TONYA GUNTER Access ion #: [id number] Sex: F : 1949 6 Locati on: RA2 Attend ing Physic zhane: RADHA STEARNS Orderi ng Physic zhane: RADHA STEARNS Exam Date: 11/14/19 12:15 PM Exam Name: XR DEXA AXIAL/ HIP/PE LVIS/S PINE Admitt ing Diagno sis(es ): RADIOL OGY REPORT - FINAL EXAM: XR DEXA AXIAL/ HIP/PE LVIS/S PINE HISTOR Y: postme nopaus al state 71-yea r-old female with osteop orosis screen ing. COMPAR ZACH: None availa ble. TECHNI QUE: Dual energy x-ray of absorp tion examin ation of the bilate ral hips and lumbar spine in AP projec tion was perfor med. FINDIN GS: Lumbar Spine (L1-L4 ): The mean bone minera l densit y is 0.973 g/cm2 hydrox yapati te, correl ating with a T-scor e of -1.8. Bilate ral hips: The mean bone minera l densit y is 0.883 g/cm2 calciu m hydrox yapati te, correl ating with a T-scor e of -1.0. Page 1 of 2 [facility] TONYA GUNTER Obed Access ion #: [id number] Sex: F : 1949 8 Exam Date: 11/14/19 12:15 PM Exam Name: XR DEXA AXIAL/ HIP/PE LVIS/S PINE Admitt ing Diagno sis(es ): IMPRES JIMY: 1. The patien t's lumbar spine T-scor e is consis tent with osteop enia. 2. The patien t's bilate ral hip T-scor e is consis tent with normal bone minera l densit y overal l. It should be noted that the BMD of the femora l necks is consis tent with osteop enia. Accord ing to the [employer] zation , T-scor e values greate r than -1.0 are normal , values betwee n -1.0 and -2.5 are catego rized as osteop enia, T-scor e of -2.5 or more are catego rized as osteop orosis . Create d and electr onical ly signed by: Salvatore herbert MD Signed Date: 11/14/19 12:44 PM (CT) Dictat ed by: Salvatore herbert MD (CT) (CT) Page 2 of 2 [id number] [facility] (Imaging) [address] [facility] [place], [address], 12/06/2022 23:58:23 02/29/20 23 MAMMO , scree sherice, digit al, bilat eral [facility] [address] [facility] [place] [address] Patien t Name: ROXY CHAMBERLAINTONYA M Access ion #: [id number] Sex: F : 1949 8 Locati on: RA2 Attend ing Physic zhane: RADHA STEARNS Orderi Physic zhane: RADHA STEARNS Exam Date: 023 10:44 AM Exam Name: MG DIGITA L DAVION BILAT SCREEN Admitt ing Diagno sis(es ): RADIOL OGY REPORT - FINAL EXAM: MG DIGITA L DAVION BILAT SCREEN HISTOR Y: Screen ing mammog nelson 72-yea r-old female with no curren t breast compla ints. COMPAR ZACH: 2021 TECHNI QUE: Bilate ral CC and MLO views of the breast s were perfor med. Digita l Mammog mikael images were obtain ed. CAD (compu ter assist ed detect ion) was utiliz ed. FINDIN GS: The breast s are hetero geneou sly dense, which may obscur e small masses . No new masses , develo ping asymme tries, suspic ious calcif icatio ns, or mike ectura l distor tion are seen. Page 1 of 2 [facility] Patien t Name: TONYA GUNTER Access ion #: [id number] Sex: F : 1949 10 Exam Date: 023 10:44 AM Exam Name: MG DIGITA L DAVION BILAT SCREEN Admitt ing Diagno sis(es ): IMPRES JIMY: BIRADS 1: Assess ment comple te. Negati ve. Recomm end annual screen ing mammog mikael. Accord ing to the [employer], yearly mammog juju are recomm ended starti ng at age 40 and contin uing as long as the woman is in good health . Clinic al Breast Exam should be part of the period ic health exam-a bout every 3 years for women in their 20s and 30s and every year for women 40 and over. Breast self-e xam is an option for women in their 20s. Any breast change noted on the breast self-e xam she would be report ed prompt ly to the [facility] er. A negati ve mammog mikael report should not discou rage follow -up or biopsy of a clinic ally signif icant findin g and/or abnorm ality. Dense breast tissue may obscur e small neopla sms. This [facility] c[facility]es has been entere d into a mammog mikael remind er system with a target date for her next mammog nelson. Create d and electr onical ly signed by: Salvatore herbert MD Signed Date: 9:32 AM (CT) Dictat ed by: Salvatore herbert MD DD: 9:32 AM (CT) DT: 9:32 AM (CT) Page [address] of [address] (Imaging) [address] [place], [address], 08/18/2023 17:00:05 02/13/20 24 02/13/2024 MAMMO , scree sherice, digit al, bilat eral No observ ation record ed. [email or web address] [address], [place], [address], 04/22/2024 09:04:36 Result Notes None recorded. Problems Name Problem SNOMED Code Status Onset Date Resolution Date Notes Provider Name and Address Organization Details Recorded Time Tremor 62322663 Active 2021 Not Available [facility] 3 03:43:49 Osteopenia 272781662 Active 2020 Not Available [facility] 3 03:43:49 Vitamin D deficiency 93596300 Active 2020 Not Available [facility] 3 03:43:49 Bipolar I disorder 856236537 Active 2020 Not Available [facility] 3 03:43:49 Hart applanatio n tonometry Completed 202008/24/2021 Not Available [facility] 3 23:56:48 Parkinson' s disease 82904693 Active 2020 Not Available [facility] 3 03:43:49 History of bariatric surgical procedure 269827974 Active 2020 Not Available [facility] 3 03:43:49 Hyperglyce meggan 17825138 Active 2020 Not Available [facility] 3 03:43:49 Fatigue 90380606 Active 2021 Not Available [facility] 3 03:43:49 Problem Notes None recorded. Procedures Surgical History Date Name Laterality Status Provider Name and Address Organization Details Recorded Time 02/28/20 Medicare Wellness CPT Code, Initial completed DARIELA Kessler - [facility] [employer] [facility] 02/27/2023 14:10:39 Cholecystectomy completed [facility] Available [facility]22 23:56:13 Gastric Bypass completed Not Available [facility] 12[facility]/2022 23:56:13 repair of meniscus completed Not Available [facility] 12/06/2022 23:56:13 Appendectomy completed Not Available [facility] 12/06/2022 23:56:13 Dilation and curettage completed Not Available [facility] 12/06/2022 23:56:13 Hysterectomy completed Not Available [facility] 12/06/2022 23:56:13 Imaging Results None recorded. Procedure Notes None recorded. Medical Equipment None Reported. Allergies Allergen ID Allergen Name Allergen Category Reaction Reaction Severity Criticality Documentation Date Start Date Code Code System Note Provider Name and Address Organization Details Recorded Time 57267 Substance with sulfonami de structure and antibacte rial mechanism of action (substanc e) medicatio n anaphylax is Not available Not available 12/06/2022 [id number] SNOMED Not Available [facility] 3 23:58:09 Medications Name Sig Start Date Stop Date Status Note LastModified by Organization Details LastModified Time primidone 50 mg tablet TAKE 1 TABLET BY MOUTH DAILY active Not Available Not Available No t Available lamotrigi ne 200 mg tablet Take 1 po daily active Not Available Not Available No t Available ofloxacin 0.3 % eye drops 09/18 completed Not Available Not Available Not Available propranol ol ER 60 mg capsule,2 4 hr,extend ed release TAKE 1 CAPSULE BY MOUTH DAILY active Not Available Not Available No t Available topiramat e 25 mg tablet TAKE 1 TABLET BY MOUTH THREE TIMES A DAY active Not Available Not Available No t Available omeprazol e 40 mg capsule,d elayed release TAKE 1 CAPSULE BY MOUTH EVERY DAY active Not Available Not Available No t Available lamotrigi ne 25 mg tablet TAKE 1 TABLET BY MOUTH EVERY DAY active Not Available Not Available No t Available ergocalci ferol (vitamin D2) 1,250 mcg (50,000 unit) capsule Take 1 po daily 11/01 completed Not Available Not Available Not Available carbidopa 25 mg-levodo pa 100 mg tablet TAKE 1 TABLET BY MOUTH THREE TIMES DAILY active Not Available Not Available No t Available carbidopa 25 mg-levodo pa 100 mg disintegr ating tablet Take 1 tablet by mouth three times a day 09/18 completed Not Available Not Available Not Available omeprazol e 40mg daily 11/01 completed Not Available Not Available Not Available propranol ol 60mg daily 11/01 completed duplicat e Not Available Not Available Not Available Centrum Silver 2021 active Not Available Not Available Not Avai lable Linzess 145 mcg capsule Take 1 capsule every day by oral route. 2021 active Not Available Not Available Not Avai lable Vitals Date Recorded Body mass index (BMI) Body height Heart rate Body temperature Body weight Systolic blood pressure Diastolic blood pressure Provider Name and Address Organization Details Last Updated DateTime 2 29.7 kg/m2 152.4 cm 60 /min 97.7 [degF] 27114.0 4 g 126 mm[Hg] 70 mm[Hg] Not Available [facility] 3 23:56:30 Date Recorded Body height Body mass index (BMI) Body weight Body temperature Heart rate Systolic blood pressure Diastolic blood pressure Provider Name and Address Organization Details Last Updated DateTime 3 152.4 cm 30.9 kg/m2 48619.5 9 g 98.6 [degF] 57 /min 120 mm[Hg] 82 mm[Hg] MURRAY Akers [place] [employer] [facility] 3 14:00:25 Date Recorded Body mass index (BMI) Body height Heart rate Body temperature Body weight Systolic blood pressure Diastolic blood pressure Provider Name and Address Organization Details Last Updated DateTime 2 31.2 kg/m2 152.4 cm 62 /min 96.9 [degF] 43021.7 8 g 122 mm[Hg] 78 mm[Hg] Not Available [facility] 3 23:56:30 Date Recorded Body mass index (BMI) Body height Heart rate Body temperature Body weight Systolic blood pressure Diastolic blood pressure Provider Name and Address Organization Details Last Updated DateTime 2 30.9 kg/m2 152.4 cm 54 /min 98.3 [degF] 09028.5 9 g 124 mm[Hg] 80 mm[Hg] Not Available [facility] 3 23:56:30 Date Recorded Body height Body mass index (BMI) Body weight Body temperature Heart rate Systolic blood pressure Diastolic blood pressure Provider Name and Address Organization Details Last Updated DateTime 3 152.4 cm 29.7 kg/m2 95779.0 4 g 97.7 [degF] 49 /min 120 mm[Hg] 80 mm[Hg] MURRAY [place] [employer] [facility] 3 14:47:38 Social History Question Answer Notes LastModified by Organization Details LastModified Time Tobacco Smoking Status Never Smoker Not Available [facility] 12/06/2022 23:55:55 Do You Have An Advance Directive? Yes [id number] Information not available 12/06/2022 Are You Blind Or Do You Have Difficulty Seeing? No [id number] Information not available 12/06/2022 What Is Your Level Of Caffeine Consumption? Occasional MIGRATION.0301 [id number] Information not available 12/06/2022 In The 14 Days Before Symptom Onset, Have You Had Close Contact With A Laboratory-confi rmed COVID-19 While That Case Was Ill? No MIGRATION.030 [id number] Information not available 12/06/2022 In The 14 Days Before Symptom Onset, Have You Had Close Contact With A Person Who Is Under Investigation For COVID-19 While That Person Was Ill? No MIGRATION.0301 [id number] Information not available 12/06/2022 Are You Deaf Or Do You Have Serious Difficulty Hearing? No MIGRATION.0301 904125 Information not available 12/06/2022 What Type Of Diet Are You Following? REGULAR MIGRATION.030 067130 Information not available 12/06/2022 What Is The Highest Grade Or Level Of School You Have Completed Or The Highest Degree You Have Received? [id number] MIGRATION.030 240812 Information not available 12/06/2022 Have There Been Any Changes To Your Family Or Social Situation? No MIGRATION.030 437646 Information not available 12/06/2022 What Is The Fluoride Status Of Your Home? Unknown MIGRATION.030 383084 Information not available 12/06/2022 Are There Any Guns Present In Your Home? No MIGRATION.0301 [id number] Information not available 12/06/2022 Do You Use Insect Repellent Routinely? Yes MIGRATION.0301 [id number] Information not available 12/06/2022 Where Do You Live? SingleLevelHouse With Basement MIGRATION.030 143649 Information not available 12/06/2022 Do You Have A Medical Power Of Supervisor Paint? Yes MIGRATION.030 942487 Information not available 12/06/2022 What Was The Date Of Your Most Recent Tobacco Screening? 09/18/2023 [id number] Information not available 09/18/2023 Do You Have Any Pets? No MIGRATION.0301 [id number] Information not available 12/06/2022 What Is Your Relationship Status? MIGRATION.030 001968 Information not available 12/06/2022 Do You Use Your Seat Belt Or Car Seat Routinely? Yes MIGRATION.0301 [id number] Information not available 12/06/2022 Do You Have Smoke And Carbon Monoxide Detectors In Your Home? Yes MIGRATION.0301 513156 Information not available 12/06/2022 Are You Passively Exposed To Smoke? No MIGRATION.0301 377754 Information not available 12/06/2022 Are There Any Smokers In Your House? No MIGRATION.0301 323607 Information not available 12/06/2022 What Types Of Sporting Activities Do You Participate In? None MIGRATION.0301 720968 Information not available 12/06/2022 Do You Use Sunscreen Routinely? Yes MIGRATION.0301 694367 Information not available 12/06/2022 Has Tobacco Cessation Counseling Been Provided? No Not Needed-nev er Smoked MIGRATION.0301 167050 Information not available 12/06/2022 Have You Recently Traveled Abroad? No MIGRATION.0301 883216 Information not available 12/06/2022 Do You Have Difficulty Walking Or Climbing Stairs? Yes MIGRATION.0301 106728 Information not available 12/06/2022 Do You Have Any Dietary Restrictions? No MIGRATION.0301 989052 Information not available 12/06/2022 Sex: Female Functional Status Question Answer Note LastModified by [employer] Details LastModified Time Do you use any illicit or recreational drugs? No MIGRATION.169353 3255 Information not available 12/06/2022 Do you or have you ever used any other forms of tobacco or nicotine? No MIGRATION.038600 3229 Information not available 12/06/2022 What is your level of alcohol consumption? None MIGRATION.398408 8019 Information not available 12/06/2022 Do you have transportation difficulties? No MIGRATION.805158 6408 Information not available 12/06/2022 Are you able to walk? YESWOREST MIGRATION.257721 3859 Information not available 12/06/2022 Do you have difficulty doing errands alone? Yes pt does not drive MIGRATION.558161 1874 Information not available 12/06/2022 Are you able to care for yourself? Yes MIGRATION.584282 4096 Information not available 12/06/2022 Do you have difficulty dressing or bathing? No MIGRATION.246167 4135 Information not available 12/06/2022 What is your exercise level? None MIGRATION.053373 2872 Information not available 12/06/2022 Mental Status Question Answer Note LastModified by [employer] ion Details LastModified Time Do you feel stressed (tense, restless, nervous, or anxious, or unable to sleep at night)? [id number] MIGRATION.[id number] 26 Information not available 12/06/2022 Do you have difficulty concentrating, remembering or making decisions? No MIGRATION.24328230 26 Information not available 12/06/2022 Family History Relationship Description Onset Age of this Age Resolved Age Notes LastModified by Organization Details LastModified Time Father Alzheimer's disease MIGRATION.430 [id number] Not available 12/06/2022 23:56:14 Mother Alzheimer's disease MIGRATION.310 [id number] Not available 12/06/2022 23:56:14 Brother Diabetes mellitus x2 MIGRATION.194 [id number] Not available 12/06/2022 23:56:14 Brother Malignant tumor of pancreas 49 MIGRATION.710 [id number] Not available 12/06/2022 23:56:14 Brother Atrial fibrillation MIGRATION.696 [id number] Not available 12/06/2022 23:56:14 Unspecified Relation Diabetes mellitus matern al side MIGRATION.710 [id number] Not available 12/06/2022 23:56:14 Medical History Condition Response BLINDNESS N NERVE DISEASE Y RHEUMATIC FEVER N BLADDER PROBLEMS N KIDNEY STONES N MRSA N OTHER # 1 Y POLIO N LUNG DISEASE/DISORDER N HISTORY OF DRUG ABUSE N RADIATION / CHEMOTHERAPY N COPD N Other # 2 N BLOOD DISEASES N EAR OR HEARING PROBLEMS N MUMPS N SHINGLES N DEPRESSION (INCLUDING POST ) Y BOWEL PROBLEMS N STROKE/TIA N ULCERS N BENIGN PROSTATIC HYPERPLASIA N MEASLES N HYPOTENSION N MYOCARDIAL INFARCTION N OBESITY N GERD/NAUSEA N ANEURYSM N URINARY/BLADDER/KIDNEY PROBLEMS N CORONARY ARTERY DISEASE (CAD) N ADDICTION CONCERNS N ENDOMETRIOSIS N Impotence N USE OF BLOOD THINNERS N SKIN PROBLEMS N GASTROINTESTINAL DISORDER N PERIPHERAL VASCULAR DISEASE N MUSCLE,JOINT OR BONE PROBLEMS N GASTROINTESTINAL BLEEDING N BLOOD CLOTS N ASTHMA N CATARACTS N ERECTILE DYSFUNCTION N VARICOSITIES N GI PROBLEMS N Low Testosterone N INFERTILITY N AIDS/HIV N CHEMOTHERAPY / RADIATION N LIVER DISEASE Y MALE HYPOGONADISM N HYPERTENSION N Deficiency Y TOURETTE'S N ANXIETY DISORDER N BLOOD TRANSFUSION N ANEMIA/BLOOD DISORDER Y CHRONIC EAR INFECTIONS N BRONCHITIS N TUBERCULOSIS N GLAUCOMA N FOOT PROBLEM N DIVERTICULITIS Y CHICKENPOX N SLEEP APNEA Y INFECTIOUS DISEASE N HEART ARRHYTHMIA N PROSTATE N INSOMNIA N HIGH CHOLESTEROL / HYPERLIPIDEMIA N HYPERTHYROIDISM N EYE PROBLEMS N EDEMA N CHRONIC PAIN SYNDROME N HYPOTHYROIDISM N CAROTID BLOCKAGE N CONSTIPATION N BACK / NECK PROBLEMS N ATHEROSCLEROSIS N BREAST PROBLEMS N DIALYSIS N ECZEMA N OSTEOPOROSIS N ARTHRITIS N APPENDICITIS N DIABETES, TYPE N BAD TEETH N ENT N HEARTBURN / REFLUX N AUTISM SPECTRUM DISORDER (ASD) N HEPATITIS / LIVER DISEASE N GOUT N SLEEP DISORDER N ALZHEIMER'S DISEASE N Brain Problems N HERPES N DEMENTIA N HEADACHES/MIGRAINES N SEIZURES/EPILEPSY N VASCULAR DISEASE N PACEMAKER N Blood Disorder N DIZZINESS N HEART DISEASE/HEART PROBLEMS N KIDNEY DISEASE N MULTIPLE SCLEROSIS N CARDIAC ARRHYTHMIA N CANCER: SPECIFY N ATRIAL FIBRILLATION N Gall Stones Y PULMONARY EMBOLISM N AUTOIMMUNE DISEASE N Gynecological History Statement/Question Response Abnormal Pap N Weight gain N Dislike of Light during Menstrual Headac he N Menses Monthly N STIs/STDs N Current Control Method Menopause Breast Problems no Discharge no Obstetrics History GPAL:G 0 P 0 0 0 0 Immunizations Vaccine Type Date Status Note Provider Nam e and Address Organization Details Recorded Time Influenza, high-dose, quadrivalent, PF 2 completed Not Available [facility] 09/25/2023 03:43:50 influenza, unspecified formulation 3 completed Not Available [facility] 09/25/2023 03:43:50 Past Encounters Encounter ID Performer Location Encounter Start Date Encounter Closed Date Diagnosis/Indication Diagnosis SNOMED-CT Code Diagnosis ICD10 Code Diagnosis Note [id number] Christine Calix MD [facility] [address] [place] [address] 08/24/2021 00:00:00 08/24/2021 16:54:02 [id number] Rafa Stearns MD [facility] Internal Med [address] [place] [address] 11/01/2021 00:00:00 11/06/2021 17:41:51 [id number] Rafa Stearns MD [facility] Internal Med [address] [place] [address] 05/02/2022 00:00:00 05/06/2022 20:54:08 [id number] Rafa Stearns MD [facility] Internal Med [address] [place] [address] 09/05/2022 00:00:00 09/27/2022 12:01:02 [id number] Rafa Stearns MD [facility] Internal Med [address] [facility] [place] [place] [address] 02/27/2023 13:52:21 02/27/2023 14:32:04 Adult health examination 989570252 Z00.00 Screening for disorder 100873298 Z13.9 Hyperglycemia 60310965 R 73.9 Fatigue 27847157 R53.83 Screening for cardiovascular system disease 712523911 Z13.6 Tremor 74629932 R25.1 Bipolar I disorder 73059 6008 F31.9 [id number] Rafa Stearns MD [facility] Internal [facility] [address] [facility] [place] [address] 09/18/2023 14:28:50 09/18/2023 15:42:52 Hyperglycemia 43815513 R73.9 Fatigue 13682033 R53.83 Screening for cardiovascular system disease 663694966 Z13.6 Renewal of prescription 264034873 Z76.0 Parkinson's disease 4904 9000 G20.A1 Bipolar I disorder 81274 6008 F31.9 Health Concerns Section Related Observation LastModified by Organization Detai ls LastModified Time None Recorded Concern Status LastModified by Organization Details LastModified Time None Recorded Advance Directives Directive Y: Payers Encounter Date Sequence Insurance Name Policy Number Policy Mcclendon Covered Member ID Mcclendon Member ID Guarantor Name 02/27/2023 1 [facility] (MEDICARE REPLACEMENT/A DVANTAGE - PPO) [id number] Lorraine Momin [id number] Lorraine Momin 09/18/2023 1 [facility] (MEDICARE REPLACEMENT/A DVANTAGE - PPO) [id number] Lorraine Momin [id number] Lorrainejennifer Momin Notes Date Note Type Note Provider Name and Address Organization Details Recorded Time 02/27/2023 text/html some fatigue blo od sugar up a little bit wellness completed GERD doing fine tremor stable Rafa Stearns MD [address] [facility], [facility] [address], [place], [address], [facility] [employer] 03/03/2023 16:03:42 09/18/2023 text/html He has had some nonspecific fatigue. Parkinson's has been doing fine medicines no side effects. Bipolar disorder she has had no behavioral outburst. Tremors been doing fine Rafa Stearns MD [address] [facility], [place] [address], [place], [address], [facility] 09/18/2023 19:00:05 OBGyn Episode No OBEpisode recorded.
[2025-03-09 14:50] LABS: Basophils Percent Auto 0.5 % (0.2-1.2); Eosinophils Absolute Auto 0.1 K/mm3 (0-0.3); Eosinophils Percent Auto 1.3 % (0-4.4); Hematocrit 39.3 % (37.0-47.0); Hemoglobin 12.9 g/dL (12.0-15.0); Lymphocytes Absolute Auto 2.36 K/mm3 (0.9-3.2); Lymphocytes Percent Auto 38.8 % (18.3-44.2); Mean Corpuscular HGB Conc 32.8 g/dl (32-36); Mean Corpuscular Hemoglobin 32.3 pg (26-34); Mean Corpuscular Volume 98.5 fl (80-100); Mean Platelet Volume 10.5 fl (7.4-10.4); Monocytes Absolute Auto 0.6 K/mm3 (0.1-0.6); Monocytes Percent Auto 9.2 % (2.6-8.5); Neutrophils Absolute Auto 3.1 K/mm3 (1.3-6.7); Neutrophils Percent Auto 50.2 % (45.5-73.1); Platelet Count Result 288 k/mm3 (150-375); Red Blood Count 3.99 M/mm3 (4.2-5.4); Red Cell Distribution Width 12.5 % (11.5-14.5); White Blood Count 6.1 K/mm3 (4.5-10.0)
[2025-03-09 15:11] LABS: Alanine Aminotransferase 6 U/L (6-35); Albumin Level 4.3 g/dL (3.5-5.1); Alkaline Phosphatase 87 U/L (38-126); Anion Gap 7 mmol/L (4-12); Aspartate Amino Transferase 35 U/L (14-36); Bilirubin,Total 0.4 mg/dL (0.2-1.3); Blood Urea Nitrogen 17 mg/dL (7-17); Calcium 9.6 mg/dL (8.4-10.2); Carbon Dioxide 24 mmol/L (22-30); Chloride 109 mmol/L (98-107); Cholesterol 202 mg/dL (0-200); Estimated Glomerular Filt Rate > 60; Glucose 97 mg/dL (65-110); HDL Direct 50 mg/dL; Potassium 4.2 mmol/L (3.4-5.0); Sodium 140 mmol/L (137-145); Triglycerides 153 mg/dL (<150)
[2025-03-09 15:24] LABS: LDL Cholesterol Direct 108 mg/dL
[2025-03-09 16:25] LABS: Folic Acid > 20.0 ng/mL (2.76->20)
[2025-03-11 13:04] LABS: Homocysteine 11.3 umol/L (< or = 13.4)
[2025-03-12 16:58] LABS: Methylmalonic Acid 149 nmol/L (69-390)
[2025-03-13 15:09] LABS: Vitamin D 1,25 (OH)2 Total 35 pg/mL (18-72); Vitamin D2 1,25 (OH)2 <8 pg/mL; Vitamin D3 1,25 (OH)2 35 pg/mL
== END 2025-03-09 14:10 | disposition home or self-care (01) ==
PROVIDERS: PCP Internal Medicine; Visit Provider Psychiatry & Neurology Neurology
DX: G20.A1 Parkinson's disease without dyskinesia, without mention of fluctuations (principal); G31.84 Mild cognitive impairment of uncertain or unknown etiology; E55.9 Vitamin D deficiency, unspecified; Z12.6 Encounter for screening for malignant neoplasm of bladder
CPT/HCPCS: 36415; 80053; 80061; 82607; 82652; 82746; 83090; 83921; 85025

== ENCOUNTER 2025-07-10 00:02 | Day surgery (SDC) | payer MEDICARE, SELFPAY ==
[2025-06-26 11:17] VITALS: BMI 30.5
--- OUTSIDE RECORDS SUMMARY | 2025-07-10 00:24 | XMS_ITS | Clinical Summary ---
Author Organization [facility] Address [address] [place] [address] Care Team Providers Care Garbage Person Name Role Phone Lele Hirsch DO Unavailable [phone] Rafa Stearns MD Unavailable [phone] Rafa Stearns MD Primary Care Provider [phone] Allergies Active Allergy Reactions Criticality Noted Date Comments Diphenhydramine Hydrocodone Stomach upset Low 01/20/2019 Morphine Nausea And Vomiting 01/31/2019 Sulfa (Sulfonamide Antibiotics) Medications topiramate (TOPAMAX) 25 mg tablet take 3 tablets by oral route at night 90 0 6 Active cholecalciferol (VITAMIN D3) 5,000 unit tablet 0 0 5 Active cyanocobalamin, vitamin B-12, (VITAMIN B-12) 5,000 mcg tablet, sublingual 5,000 mcg. 0 0 5 Active biotin 1 mg capsule 1 mg. 0 0 5 Active calcium carbonate (CALCIUM 600) 1,500 mg (600 mg of elemental calcium) tablet take 1 Tablet by Oral route every day 0 0 5 Active multivitamin capsule take 1 capsule by oral route every day 0 0 5 Active lamoTRIgine (LaMICtal) 200 mg tablet take 1 tablet by oral route every day 0 0 5 Active Additional Information Patient taking differently: 25 mg, Informant: Self, Reported on 03/20/2025 propranolol LA (INDERAL LA) 60 mg 24 hr capsule Take 1 capsule (60 mg total) by mouth daily. 30 capsule 5 7 Active primidone (MYSOLINE) 50 mg tablet TAKE 1 TABLET BY MOUTH EVERY NIGHT 30 tablet 2 8 Active carbidopa-levod opa (SINEMET) 25-100 mg per tabletIndicatio ns:Parkinsonism Take 1 tablet by mouth 3 (three) times a day Active omeprazole (PriLOSEC) 40 mg capsuleIndicati ons:GERD Take 1 tablet by mouth every morning 0 Active acetaminophen 500 mg capsuleIndicati ons:Fever,Pain Take 2 capsules (1,000 mg total) by mouth every 6 (six) hours as needed for pain Use first for management of pain 4 Active docusate sodium (COLACE) 100 mg capsuleIndicati ons:constipatio n Take 1 capsule (100 mg total) by mouth 2 (two) times a day 30 capsule 4 Active Additional Information Patient taking differently:100 mg oralAs needed, Indications: constipation, Reported on 03/20/2025 anastrozole (ARIMIDEX) 1 mg tablet TAKE 1 TABLET BY MOUTH EVERY DAY 90 tablet 5 Active Active Problems Problem Noted Date Diagnosed Date Parkinson's disease without fluctuating manifestations, unspecified whether dyskinesia present 12/20/2024 Bipolar I disorder 12/20/2024 Breast cancer in female 07/21/2024 Malignant neoplasm of right female breast 2023 Cancer Staging:Clinical stage from 08/15/2024:Stage IB(cT2, cN0(sn), cM0, G2, ER+, ME+, HER2-, Oncotype DX score: 2) - Signed [...] - Arthritis hip and back Bipolar disorder Diverticulitis peptic ulcer Depression Overweight Breast cancer [...] on file Legal Sex Female 3:37 AM [employer] WORK[employer] Gender Identity Not on file Sexual Orientation Not on file Obstetrics History Para Term AB IAB SAB Ectopic Multiple Livin g Live Births 5 3 3 Date Outcome GA Total Labor Labor/2nd/3rd Weight Sex Type Anes PTL La A1 A5 Name Clin Term Term Term Last Filed Vital Signs Vital Sign Reading Time Taken Comments Blood Pressure 90/61 03/20/2025 10:05 AM CDT Pulse 57 03/20/2025 10:05 AM CDT Temperature 36.6 C (97.8 F) 03/20/2025 10:05 AM CDT Respiratory Rate 18 03/20/2025 10:05 AM CDT Oxygen Saturation 98% 03/20/2025 10:05 AM CDT Inhaled Oxygen Concentration - - Weight 73.2 kg (161 lb 6 oz) 03/20/2025 10:05 AM CDT no shoes Height 152.4 cm (5') 03/03/2025 12:51 PM CDT Body Mass Index 31.52 03/03/2025 12:51 PM CDT Plan of Treatment Health Maintenance Due Date Last Done Comments Colon Cancer Screening-Colonoscopy 1950 Depression Screening 1950 Hepatitis C Screening 1950 DTaP/Tdap/Td Vaccine (1 - Tdap) 1963 Hepatitis B Screening 1970 Well Visit 65+ 2017 Zoster Vaccine (2 of 2) 07/04/2020 05/09/2020 Osteoporosis Screening-Bone Density Scan 11/14/2023 11/14/2021, 04/25/2018 Influenza Vaccine (#1) 2025 , 06/30/2024, 08/17/2023, Additional history exists Fall Risk Assessment 07/22/2025 07/22/2024 Breast Cancer Screening-Mammogram 03/03/2026 03/03/2025, 02/28/2023, 11/14/2021, Additional history exists Pneumococcal vaccine 65+ Completed 11/17/2024 Procedures Procedure Name Priority Date/Time Associated Diagnosis Comments SCREENING MAMMOGRAM LEFT W PONCE UNILATERAL ONLY Schedule Routine, Read Routine (OP Routine) 03/03/2025 1:10 PM CDT Malignant neoplasm of upper-outer quadrant of right breast in female, estrogen receptor positive (HCC) Encounter for screening mammogram for malignant neoplasm of breast from Last 3 Months or Most Recently Relevant to Health Maintenance Results * Screening Mammogram Left W Ponce Unilateral Only (03/03/2025 1:10 PM CDT) Anatomical Region Laterality Modality Breast Left Mammography Narrative 03/04/2025 1:08 PM CDT Mammogram Technique: Left Breast Digital Breast Tomosynthesis, Unilateral C-view 2D Screening mammogram. Views obtained: left craniocaudal and left mediolateral oblique. Computer Aided Detection was performed. Mammogram Findings: The present examination has been compared to prior imaging studies performed at [facility]. [facility] on 05/05/2024, at [place], [place] on 02/27/2023, and at [facility]. [facility] on 02/13/2024. There are scattered areas of [...] compared to prior imaging studies performed at [facility] on 05/05/2024, at [place], [place] on 02/27/2023, and at [facility] on 02/13/2024. There are scattered areas of [...] 0: Incomplete: Need additional imaging evaluation. Sandra Villareal MD IMG MAMMO PROCEDURES Fi nal Result from Last 3 Months or Most Recently Relevant to Health Maintenance Insurance [facility] Advance Directives For more information, please contact: [phone] * Full Code (Latest Code Status on File) Date Activated Date Inactivated Comments 07/21/2024 7:29 PM 07/22/2024 8:01 PM Care Teams Garbage Person Relationship Specialty Start Date End Date Rafa Stearns MD [address] [facility], [facility] [address] [place] [address] PCP - General Internal Medicine 05/28/24 Lele Hirsch DO [facility], [facility] [address] [place], [place] [id number] Medical Oncologist/Med Dir Hematology and Oncology 05/19/24 Rafa Stearns MD [facility], [facility] [address] [place], [place] [id number] Referring Physician Internal Medicine 05/26/24
--- OUTSIDE RECORDS SUMMARY | 2025-07-10 00:24 | XMS_ITS | Data Portability ---
Author Organization 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 old records [email or web address] Not available 01/20/2024 15:32:45 08/25/2024 08/25/2024 she [...] follow up with me in 3-4 months [email or web address] Not available 09/07/2024 17:00:39 11/17/2024 11/17/2024 Parkinson's carbidopa levodopa. GERD omeprazole. Pneumococcal vaccine today history of breast cancer she sees her specialist in a week or so she will follow up with me in 4 months [email or web address] Not available 11/17/2024 23:39:16 02/23/2025 02/23/2025 We will continue current therapy healthy lifestyle care instructions have been given she will see me back in 4 months [email or web address] Not available 03/01/2025 15:39:00 Plan of Treatment Reminders Order Date Submit Date Provider Last Modified By Organization Details Last Modified Time Details Appointments ANY 15 2025 01:15P M Laura Stearns MD Not available Not available Not available Lab CBC w/ auto diff 05/19/ 2025 05/19/2 025 [facility], [address], [place], [address], 03/17/2025 14:14:58 CMP, serum or plasma 2024 025 [facility], [address], [place], [address], 04/23/2025 14:39:54 lipid panel, serum 2024 025 [email or web address] [facility], [address], [address], [place], [address], 04/23/2025 14:39:54 Referral general surgeon referral - Pt is having mammogram done at [facility]. 2023 024 [facility] Back Fax Line), [facility] [address], [place], [address], 05/27/2024 14:57:57 Procedures colonosco py screening (PROC) 2024 025 [facility], [address], [address], [place], [address], 06/29/2025 14:37:24 Surgeries None recorded. Imaging MAMMO, diagnosti c, digital, bilateral - right breast mass 2023 024 [facility], [address], [place], [address], 02/13/2024 13:06:26 Medication Orders None recorded. Patient TargetsNo targets recorded. Patient Instructions Encounter Date Encounter Id Patient Instructions Last Modified By Organization Details Last Modified Time 11/17/2024 [id number] A healthy lifestyle: care instructions [email or web address] Not available 11/17/2024 15:34:02 02/23/2025 [id number] A healthy lifestyle: care instructions [email or web address] Not available 02/23/2025 15:52:42 Reason for Referral General Surgeon Referral for Mass of right breast Pt is having mammogram done at [facility]. Referring Physician: Laura Stearns, Internal Medicine, Encounter Date: 01/14/2024 Results Created Date Observation Date Name Description Value Unit Range Abnormal Flag Note LastModifiedBy Organization Detail LastModifiedTime 02/13/20 24 02/13/2024 MAMMO , diagn ostic , digit al, bilat eral No observ ation record ed. [facility] [address], [place], [address], 02/25/2024 18:18:16 02/13/20 24 02/13/2024 MAMMO , diagn ostic , digit al, bilat eral No observ ation record ed. [facility] [address], [place], [address], 02/25/2024 18:18:16 02/13/20 24 02/13/2024 MAMMO , diagn ostic , digit al, bilat eral No observ ation record ed. [facility] [address], [place], [address], 02/15/2024 11:03:09 02/13/20 24 02/13/2024 MAMMO , diagn ostic , digit al, bilat eral No observ ation record ed. [facility] [address], [place], [address], 02/25/2024 18:18:16 04/21/20 24 04/21/2024 sabine jeronimo study No observ ation record ed. [facility] [address], [place], [address], 04/23/2024 12:44:09 04/21/20 24 04/21/2024 MRI, brain + brain stem, w/o contr ast No observ ation record ed. [address], [place], [address], 04/23/2024 12:44:11 04/22/20 24 02/13/2024 MAMMO , diagn ostic , digit al, bilat eral No observ ation record ed. [address], [place], [address], 04/24/2024 23:05:42 05/05/20 24 05/05/2024 biops y, breas t, w/ ultra sound casi nce (PROC ) No observ ation record ed. [address], [place], [address], 05/13/2024 11:57:10 05/05/20 24 05/05/2024 biops y, breas t, w/ ultra sound casi nce (PROC ) No observ ation record ed. [address], [place], [address], 05/13/2024 11:57:10 05/14/20 24 05/05/2024 MAMMO , diagn ostic , digit al, bilat eral No observ ation record ed. [address], [place], [address], 05/14/2024 21:47:45 05/14/20 24 US, breas t, bilat eral No observ ation record ed. [address], [place], [address], 05/14/2024 21:47:45 05/14/20 24 05/05/2024 biops y, breas t, w/ ultra sound casi nce (PROC ) No observ ation record ed. [address], [place], [address], 05/15/2024 14:19:47 12/09/19 25 12/08/2024 CT, chest , w/ contr ast No observ ation record ed. [email or web address] [facility] [address], [place], [address], 12/11/2024 21:17:52 Result Notes None recorded. Problems Name Problem SNOMED Code Status Onset Date Resolution Date Notes Provider Name and Address Organization Details Recorded Time Mass of right breast 6949549120428 9106 Active 2023 Laura Stearns MD Attn: Greyson garrido,[address] [facility], [place], [address], [facility] 4 15:30:54 Gastroesoph ageal reflux disease without esophagitis 351558353 Active 2023 Laura Stearns MD Attn: Greyson garrido,[address] [facility], [place], [address], [facility] 4 15:30:55 Anxiety 30719856 Active 2023 Laura Stearns MD Attn: Greyson garrido,[address] [facility], [place], [address], [place] [facility] 4 15:30:56 Parkinson's disease 35030652 Active 2023 Laura Stearns MD Attn: Greyson garrido,[address] [facility], [place], [address], [place] [facility] 4 15:30:59 Bipolar disorder 62414261 Active 2023 Laura Stearns MD Attn: Geryson garrido,[address] [facility], [place], [address], [place] [facility] 4 15:31:01 History of malignant neoplasm of breast 414466249 Active 2023 Laura Stearns MD Attn: Greyson garrido,[address] [facility], [place], [address], [place] [facility] 4 16:59:57 Problem Notes None recorded. Procedures Surgical History Date Name Laterality Status Provider Name and Address Organization Details Recorded Time Appendectomy completed Della Lynch MA [facility] 01/14/2024 15:19:30 Cholecystectomy completed Della Lynch MA [facility] 01/14/2024 15:19:35 Dilation and Curettage completed Della Lynch MA [facility] 01/14/2024 15:19:40 Knee Surgery completed Della Lynch CAMACHO [facility] 01/14/2024 15:19:45 Imaging Results None recorded. Procedure Notes None recorded. Medical Equipment None Reported. Allergies Allergen ID Allergen Name Allergen Category Reaction Reaction Severity Criticality Documentation Date Start Date Code Code System Note Provider Name and Address Organization Details Recorded Time 563186 Substance with sulfonami de structure and antibacte rial mechanism of action (substanc e) medicatio n rash Not available Not available 01/14/2024 07271 8003 SNOMED [facility] 15:18:27 205801 Benadryl medicatio n edema Not available Not available 01/14/2024 86525 7 RxNorm [facility] 15:18:40 Medications Name Sig Start Date Stop Date Status Note LastModified by Organization Details LastModified Time methocarbamo l 500 mg tablet TAKE 1 TABLET (500 MG TOTAL) BY MOUTH NIGHTLY TAKE ONLY NEEDED 06/29 completed Not Available Not Available Not Available anastrozole 1 mg tablet TAKE 1 TABLET BY MOUTH EVERY DAY active Not Available Not Available No t Available primidone 50 mg tablet TAKE 1 TABLET BY MOUTH EVERY DAY active Not Available Not Available No t Available ofloxacin 0.3 % eye drops 01/13 completed Not Available Not Available Not Available propranolol ER 60 mg capsule,24 hr,extended release 60 MG ORALLY DAILY active Not Available Not Available No t Available topiramate 25 mg tablet TAKE 1 TABLET BY MOUTH THREE TIMES A DAY active Not Available Not Available No t Available omeprazole 40 mg capsule,sandra yed release TAKE 1 CAPSULE BY MOUTH EVERY DAY active Not Available Not Available No t Available lamotrigine 25 mg tablet TAKE 1 TABLET BY MOUTH EVERY DAY active Not Available Not Available No t Available doxycycline monohydrate 100 mg capsule 06/29 completed Not Available Not Available Not Available docusate sodium 100 mg capsule TAKE 1 CAPSULE BY MOUTH TWICE DAILY 06/29 completed Not Available Not Available Not Available carbidopa 25 mg-levodopa 100 mg tablet TAKE 1 TABLET BY MOUTH 3 TIMES A DAY active Not Available Not Available No t Available oxycodone 5 mg tablet 06/29 completed Not Available Not Available Not Available Vitals Date Recorded Body height Body mass index (BMI) Body weight Heart rate Oxygen saturation Oxygen saturation in Arterial blood by Pulse oximetry Systolic And Diastolic Provider Name and Address Organization Details Last Updated DateTime 5 152.4 cm 31.1 kg/m2 26566.5 5 g 68 /min 98 % 98 % 124/68 mm[Hg] Mulu Parnell MA [facility] 5 14:15:54 Date Recorded Body weight Heart rate Body temperature Oxygen saturation Oxygen saturation in Arterial blood by Pulse oximetry Systolic And Diastolic Provider Name and Address Organization Details Last Updated DateTime 4 26466.4 7 g 62 /min 98.4 [degF] 98 % 98 % 122/84 mm[Hg] Della Lynch MA [facility] 4 15:27:07 Date Recorded Body height Body mass index (BMI) Body weight Heart rate Oxygen saturation Oxygen saturation in Arterial blood by Pulse oximetry Systolic And Diastolic Provider Name and Address Organization Details Last Updated DateTime 5 152.4 cm 30.6 kg/m2 20277.6 4 g 78 /min 98 % 98 % 118/64 mm[Hg] Mulu Parnell MA [facility] 5 14:16:37 Date Recorded Body height Body mass index (BMI) Body weight Heart rate Oxygen saturation Oxygen saturation in Arterial blood by Pulse oximetry Systolic And Diastolic Provider Name and Address Organization Details Last Updated DateTime 5 152.4 cm 31.4 kg/m2 58993.0 1 g 60 /min 99 % 99 % 138/84 mm[Hg] Mitali Craig MA [facility] 5 14:34:45 Date Recorded Body height Body mass index (BMI) Body weight Heart rate Oxygen saturation Oxygen saturation in Arterial blood by Pulse oximetry Systolic And Diastolic Provider Name and Address Organization Details Last Updated DateTime 4 152.4 cm 31 kg/m2 68551.4 7 g 62 /min 96 % 96 % 120/64 mm[Hg] Mulu Parnell [place] [facility] 4 14:59:43 Social History Question Answer Notes LastModified by Organizat ion Details LastModified Time Tobacco Smoking Status Never Smoker Della Lynch [place] null, [place] [facility] 01/14/2024 15:17:56 Do You Have An Advance [...] Date Of Your Most Recent Tobacco Screening? 06/29/2025 [email or web address] Information not available 06/29/2025 What Is Your Relationship Status? Information not [...] 08/25/2024 Are you able to care for yourself independently? Yes Information not available 01/14/2024 What is your exercise level? Occasional Information not available 08/25/2024 Mental Status Question Answer Note LastModified by Organization D etails LastModified Time Do you feel stressed (tense, restless, nervous, or anxious, or unable to sleep at night)? DA0821-8 Information not available 01/14/2024 Family History Relationship [...] [email or web address] Not available 2023 15:16:59 Father Malignant neoplasm of breast [email or web address] Not available 2023 15:16:06 [...] Influenza, high-dose, quadrivalent, PF 0 completed Mulu P[place], [place] [facility] 11/17/2024 14:00:48 Influenza, high-dose, quadrivalent, PF 2 completed Mulu [place] [facility] 11/17/2024 14:00:48 Influenza, adjuvanted, quadrivalent, PF 3 completed Mulu [place] [facility] 11/17/2024 14:00:48 Influenza, high-dose, trivalent, PF 7 completed Mulu [place] [facility] 11/17/2024 14:00:48 Influenza, split virus, quadrivalent, PF 6 completed Mulu [place] [facility] 11/17/2024 14:00:48 Influenza, split virus, quadrivalent, PF 7 completed Mulu [place] [facility] 11/17/2024 14:00:48 Influenza, high-dose, trivalent, PF 4 completed Mulu [place] [facility] 11/17/2024 14:00:54 Pneumococcal conjugate PCV20, polysaccharide HUM498 conjugate, adjuvant, PF 5 completed Laura Stearns MD Attn: [address] [place], [address], [place] [facility] 11/17/2024 23:38:08 Influenza, high-dose, trivalent, PF 5 completed CAMACHO Richards, [place] - [facility] 07/09/2025 09:42:25 Past Encounters Encounter ID Performer Location Encounter Start Date Encounter Closed Date Diagnosis/Indication Diagnosis SNOMED-CT Code Diagnosis ICD10 Code Diagnosis IMO Codes Diagnosis Note [id number] Laura Stearns MD [facility] [employer] [place] [address] [place] [address] 01/14/2024 14:36:19 01/14/2024 16:08:27 Mass of right breast 0139247081 2739265 N63.10 Gastroesop hageal reflux disease without esophagitis 660292631 K21.9 Anxiety 88580298 F41.9 Parkinson's disease 4904 9000 G20.A1 Bipolar disorder 4173017 4 F31.9 [id number] Laura Stearns MD [facility] [employer] [place] [address] [place] [address] 08/25/2024 14:41:59 08/25/2024 15:42:06 Gastroesophageal reflux disease without esophagitis 633158431 K21.9 Parkinson's disease 4904 9000 G20.A1 History of malignant neoplasm of breast 869023999 Z85.3 [id number] Laura Stearns MD [facility] [employer] [facility] [place] [address] [place] [address] 11/17/2024 13:48:06 11/17/2024 14:59:19 Body mass index 30+ - obesity 319470019 Z68.31 Obesity 143788942 E66.9 Administra tion of pneumococcal vaccine 34387289 Z23 Gastroesop hageal reflux disease without esophagitis 398102979 K21.9 Parkinson's disease 4904 9000 G20.A1 Anxiety 45251492 F41.9 [id number] Laura Stearns MD [facility] [employer] [place] [address] [place] [address] 02/23/2025 13:51:42 02/23/2025 15:11:14 Obese class I 2373992387 36726 E66.598 0219917 Parkinson's disease 4904 9000 G20.A1 Screening for cardiovascular system disease 483823112 Z13.6 036124 Screening for malignant neoplasm of colon 480185041 Z12.11 844093 Gastroesop hageal reflux disease without esophagitis 121798794 K21.9 Anxiety 99611900 F41.9 History of malignant neoplasm of breast 241696314 Z85.3 [id number] Laura Stearns MD [facility] [employer] [facility] [address] [place] [address] 06/29/2025 14:06:43 06/29/2025 15:15:55 Obese class I 8248613140 18098 E66.811 E66.3 3185041681 31.4 Influenza vaccination given 6585770357 9109 Z23 41011200 Health Concerns Section Related Observation LastModified by Organization Detai ls LastModified Time None Recorded Concern Status LastModified by Organization Details LastModified Time None Recorded Advance Directives Directive Y: Payers Insurance Date Sequence Insurance Name Policy Number Policy Mcclendon Covered Member ID Mcclendon Member ID Guarantor Name 06/26/2025 1 [facility] (MEDICARE REPLACEMENT/A DVANTAGE - HMO) [id number] Lorraine Momin [id number] Lorrainejennifer Momin 02/23/2025 1 [facility] [id number] Lorraine Momin [id number] Lorrainejenniefr Momin Notes Date Note Type Note Provider [...] months no nipple discharge Della Lynch [place] null, [place] [facility] 02/12/2024 16:04:41 08/25/2024 text/html GERD stable no nausea vomiting or heartburn. Tremor primidone seems to be doing okay. Parkinson's doing well on carbidopa levodopa. Interval history breast cancer treated at [facility] Laura Stearns MD Attn: Accounting[address] [place], [address], [facility] 09/07/2024 17:01:11 11/17/2024 text/html Parkinson's has been relatively stable no side effects from medications. Anxiety is up a little bit she is just day-to-day with regards to the breast cancer diagnosis but overall seems fairly positive. GERD no nausea no vomiting Laura Stearns MD Attn: [address] , [place], [address], [facility] 11/17/2024 23:39:35 02/23/2025 text/html Regular follow up her Parkinson's has been doing okay anxiety is high dealing with her has been has been ill breast cancer has been doing fine with regards to her treatment she is now on aromatase inhibitor therapy. Anxiety stable Laura Stearns MD Attn: [address] , [place], [address], [facility] 03/01/2025 15:39:22 OBGyn Episode No OBEpisode recorded.
--- OUTSIDE RECORDS SUMMARY | 2025-07-10 00:24 | XMS_ITS | Clinical Summary ---
Author Organization [facility] [employer] Address [address] [place] [address] Care Team Providers Care Resource Conservationist Name Role Phone Chanelle White SHADE HANGER-LOGISTICS SOLUTION MANAGER Primary Care Provider [phone] Source Comments [facility],non-owned Affiliates and Associated Physician Practices is amultiple site organization consisting of ambulatory clinics and hospital sitesin [place], [place], [place] and [place]. This disclosure is being madepursuant to the Care Everywhere program and may not contain all information available regarding this patient. 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 Gender Identity Not on file Sexual Orientation [...] 2002 ZOSTER VACCINE (1 of 2) 2002 DEPRESSION SCREENING 10/08/2024 MEDICARE AWV CALENDAR YEAR 2024 COVID-19 VACCINE (1 - 2023-2 5 season) 2025 INFLUENZA VACCINE (#1) 2025 Respiratory Syncytial Virus (RSV) Vaccine Pt: [...] complete [place] [address] [address] [facility] [place] [address] [employer] MANAGED MEDICARE ADV * Guarantor: CHIP MOMIN Account Type Relation to Patient Date of Phone Billing Address Personal/Family [address] [place] [address] SELF PAY NO INSURANCE Member Subscriber Plan / Payer (Ef fective for All Dates) Name:Malissa Chip Clay Member ID:Not on file Relation to Subscriber:Not on file Name:JASONABDELRAHMANDOUGLASPATRICIOCHIP Subscriber ID:Not on file Address: [address] [place], [place] [id number] Payer ID:Not on file Group ID:Not on file Type:Self Pay Address: [facility] MANAGED MEDICARE ADV * Guarantor: CHIP MOMIN Account Type Relation to Patient Date of Phone Billing Address Personal/Family [address] [place], [place] [id number] SELF PAY NO INSURANCE Member Subscriber Plan / Payer (Ef fective for All Dates) Name:Chip Momin Member ID:Not on file Relation to Subscriber:Not on file Name:[place] Subscriber ID:Not on file Address: [address] [place], [place] [id number] Payer ID:Not on file Group ID:Not on file Type:Self Pay Address: [place], [place] UHC MANAGED MEDICARE ADV * Guarantor: CHIP MOMIN Account Type Relation to Patient Date of Phone Billing Address Personal/Family [address] [place], [place] SELF PAY NO INSURANCE Member Subscriber Plan / Payer (Ef fective for All Dates) Name:Chip Momin Obed Member ID:Not on file Relation to Subscriber:Not on file Name:[place]IP Subscriber ID:Not on file Address: [address] [place], [place] Payer ID:Not on file Group ID:Not on file Type:Self Pay Address: [facility] MANAGED MEDICARE ADV Care Teams Resource Conservationist Relationship Specialty Start Date End Date Chanelle White, SHADE HANGER-LOGISTICS SOLUTION MANAGER [address] [place] [address] PCP - General Nurse Practitioner Family 08/27/19
--- OUTSIDE RECORDS SUMMARY | 2025-07-10 00:24 | XMS_ITS | Data Portability ---
Author Organization [place] [facility] [employer], Main Office Address [address] [place] [address] Assessment Encounter Date Assessment Date Assessment LastModified by Organization Details LastModified Time 02/27/2023 02/27/2023 Wellness completed orders given continue current therapy completed her mammogram today blood work ordered and follow-up in 4 months [email or web address] Not available 03/03/2023 16:03:07 09/18/2023 09/18/2023 Will continue current therapy blood work has been ordered she will follow-up with me in 4-6 months all questions have been answered [email or web address] Not available 09/18/2023 18:59:34 Plan of Treatment Reminders Order Date Submit Date Provider Last Modified By Organization Details Last Modified Time Details Appointments None recorded. Lab HbA1c (hemoglobin A1c), blood 2022 023 [email or web address] [facility], [address] [facility], [facility] [address], [place], [address], 4 08:32:01 lipid panel, serum 2022 023 MEDARDO [facility], [address] [facility] [address], [address], 3 20:39:31 TSH, serum or plasma 2022 023 MEDARDO [facility], [address] [facility], [facility] 2, [place], [address], 3 21:04:18 CBC w/ auto diff 2022 023 MEDARDO [facility], [address] [facility], [facility] 2, [place], [address], 3 19:16:50 T4, free, serum 2022 023 MEDARDO [facility], [address] [facility], [facility] 2, [place], [address], 3 20:43:40 T3, free, serum or plasma 2022 023 MEDARDO [facility], [address] [facility], [facility] 2, [place], [address], 3 20:43:45 CMP, serum or plasma 2022 023 MEDARDO [facility], [address] [facility], [facility] 2, [place], [address], 3 20:39:26 HbA1c (hemoglobin A1c), blood 2022 023 [email or web address] [facility], 102 [facility], [facility] 2, [place], [address], 3 09:43:49 lipid panel, serum 2022 023 MEDARDO [facility], [address] [facility], [facility] 2, [place], [address], 3 20:12:53 TSH, serum or plasma 2022 023 MEDARDO [facility], [address] [facility], [facility] 2, [place], [address], 3 20:38:06 CBC w/ auto diff 2022 023 MEDARDO [facility], [address] [place], [address], [place], [address], 3 19:45:24 T4, free, serum 2022 023 MEDARDO [facility], [address] [facility], [address], [place], [address], 3 20:26:41 T3, free, serum or plasma 2022 023 MEDARDO [facility], [address] [facility], [facility] 2, [place], [address], 20:26:52 CMP, serum or plasma 2022 023 MEDARDO [facility], [address] [facility], [facility] 2, [place], [address], 20:12:51 Referral None recorded. Procedures None recorded. Surgeries None recorded. Imaging None recorded. Medication Orders omeprazole 40 mg capsule,del ayed release 2022 023 [facility] #[id number], [address] [place], [address], 15:58:06 Patient TargetsNo targets recorded. Patient Instructions Encounter Date Encounter Id Patient Instructions Last Modified By Organization Details Last Modified Time 02/27/2023 [id number] dementia rating scale-2* [email or web address] Not available 02/27/2023 15:47:49 alcohol misuse* [email or web address] Not available 02/27/2023 15:47:49 depression screening* [email or web address] Not available 02/27/2023 15:47:49 Timed Up and Go test (TUG)* [email or web address] Not available 02/27/2023 15:47:49 multi-dimensiona l health assessment questionnaire* [email or web address] Not available 02/27/2023 15:47:49 Personalized [facility] lt Plan and Screening Recommendations Advance Directives - [...] activity: Need more exercise/physical activity Nutrition: Average Eat heart healthy diet Fall Risk (screened today): Intermediate Recommend regular use of cane or walker [...] or ) Breast Cancer Screening with mammogram: up to date Cervical/Uterine/Ov shar Cancer Screening: No screening necessary Osteoporosis Screening: up to date Date Screening Last Performed: Colon Cancer Screening: Colonoscopy Date Screening Last Performed: _2018 Eye Disease Screening: Your next exam in: goes yearly Dementia Risk: Low I have no recommendations Depression Screening: Negative I have no recommendations [email or web address] Not available 02/27/2023 14:16:22 Reason for Referral None Reported. Results Created Date Observation Date Name Description Value Unit Range Abnormal Flag Note LastModifiedBy Organization Detail LastModifiedTime 05/02/20 22 05/02/2022 TSH thyroid-stim ulating hormone 1.170 uIU/m L 0.465- 4.680 Not Available [facility] (Lab) [address] [place], [address], 05/02/2022 19:27:47 05/02/20 22 05/02/2022 T3 FREE free T3 3.0 pg/mL 2.77-5 .27 Not Available [facility] (Lab) [address] [place] [address], [address], 05/02/2022 19:19:37 05/02/20 22 05/02/2022 T4 FREE free T4 1.10 NG/dL 0.78-2 .19 Not Available [facility] (Lab) [address] [place], [address], 05/02/2022 19:19:36 05/02/20 22 05/02/2022 LIPID PANEL cholesterol 187 mg/dL 140-19 9 NIH JET NSUS RECOM MENDA TION FOR MOO STERO L: ADULT CHILD LOW RISK: <200 <170 BORDE RLINE : <200- 239 ----- HIGH RISK: >240 >200 Not Available [facility] (Lab) [address] [place], [address], 05/02/2022 19:06:43 05/02/20 22 05/02/2022 LIPID PANEL triglyceride s 128 mg/dL 0-150 NIH JET NSUS REPOR T RECOM MENDA TION FOR TRIGL YCERI GABY: ADULT CHILD LOW RISK: <150 ----- BODER LINE: 150-1 99 ----- HIGH RISK: >200 ----- Not Available [facility] (Lab) [address] [place], [address], 05/02/2022 19:06:43 05/02/20 22 05/02/2022 LIPID PANEL HDL cholesterol 59 mg/dL 40- Not Available [facility] (Lab) [address] [place], [address], 05/02/2022 19:06:43 05/02/2005/02/2022 LIPID PANEL LDL cholesterol, calculated 102 mg/dL 0-130 NIH JET NSUS REPOR T RECOM MENDA TIONS FOR LDL: ADULT CHILD LOW RISK <130 <110 (OPTI MAL LDL) <100 ----- CIERRADE RLINE : 130-1 59 ----- HIGH RISK: >160 >130 A TRIGL YCERI DE RESUL T >400 INVAL IDATE S THE CALCU LATIO N FOR LDL FRACT IONAT ION - THE LDL RESUL T WILL NOT BE REPOR NOEMÍ. Not Available [facility] (Lab) [address] [place], [address], 05/02/2022 19:06:43 05/02/20 22 05/02/2022 COMPR EHENS JUAN METAB OLIC PANEL sodium 140 mmol/ L 137-14 5 Not Available [facility] (Lab) [address] [place], [address], 05/02/2022 19:06:42 05/02/20 22 05/02/2022 COMPR EHENS JUAN METAB OLIC PANEL potassium 4.9 mmol/ L 3.5-5. 1 Not Available [facility] (Lab) [address] [place], [address], 05/02/2022 19:06:42 05/02/20 22 05/02/2022 COMPR EHENS JUAN METAB OLIC PANEL chloride 107 mmol/ L 98-107 Not Available [facility] (Lab) [address] [place], [address], 05/02/2022 19:06:42 05/02/20 22 05/02/2022 COMPR EHENS JUAN METAB OLIC PANEL carbon dioxide 23 mmol/ L 22-30 Not Available [facility] (Lab) [address] [place], [address], 05/02/2022 19:06:42 05/02/20 22 05/02/2022 COMPR EHENS JUAN METAB OLIC PANEL anion gap 14.9 mmol/ L 14-22 Not Available [facility] (Lab) [address] [place], [address], 05/02/2022 19:06:42 05/02/20 22 05/02/2022 COMPR EHENS JUNA METAB OLIC PANEL glucose 76 mg/dL 70-99 Not Available [facility] (Lab) [address] [place], [address], 05/02/2022 19:06:42 05/02/20 22 05/02/2022 COMPR EHENS JUAN METAB OLIC PANEL BUN 13 mg/dL 8-19 Not Available [facility] (Lab) [address] [place], [address], 05/02/2022 19:06:42 05/02/20 22 05/02/2022 COMPR EHENS JUAN METAB OLIC PANEL creatinine 0.82 mg/dL 0.66-1 .25 Not Available [facility] (Lab) [address] [place], [address], 05/02/2022 19:06:42 05/02/20 22 05/02/2022 COMPR EHENS JUAN METAB OLIC PANEL GFR >60 Refer ence Range : [place] ge GFR Healt hy Adult : >60 [...] calcu lator is avail able on the [facility] websi te: https :[email or web address] [email or web address] paul s/kdo qi/gf r_cal culat or Not Available [facility] (Lab) [address] [place], [address], 05/02/2022 19:06:42 05/02/20 22 05/02/2022 COMPR EHENS JUAN METAB OLIC PANEL alkaline phosphatase 92 U/L 38-[address] [facility] (Lab) [address] [place], [address], 05/02/2022 19:06:42 05/02/20 22 05/02/2022 COMPR EHENS JUAN METAB OLIC PANEL alanine aminotransfe rase 9 U/L 0-35 Not Available [facility] (Lab) [address] [place], [address], 05/02/2022 19:06:42 05/02/20 22 05/02/2022 COMPR EHENS JUAN METAB OLIC PANEL aspartate aminotransfe rase 37 U/L 15-37 Not Available [facility] (Lab) [address] [place], [address], 05/02/2022 19:06:42 05/02/20 22 05/02/2022 COMPR EHENS JUAN METAB OLIC PANEL bilirubin, total 0.30 mg/dL 0.20-1 .30 Not Available [facility] (Lab) [address] [place], [address], 05/02/2022 19:06:42 05/02/20 22 05/02/2022 COMPR EHENS JUAN METAB OLIC PANEL calcium 9.8 mg/dL 8.4-10 .2 Not Available [facility] (Lab) [address] [place], [address], 05/02/2022 19:06:42 05/02/20 22 05/02/2022 COMPR EHENS JUAN METAB OLIC PANEL total protein 6.9 g/dL 6.3-8. 2 Not Available [facility] (Lab) [address] [place], [address], 05/02/2022 19:06:42 05/02/20 22 05/02/2022 COMPR EHENS JUAN METAB OLIC PANEL albumin 4.3 g/dL 3.0-4. 4 Not Available [facility] (Lab) [address] [place], [address], 05/02/2022 19:06:42 05/02/20 22 05/02/2022 COMPR EHENS JUAN METAB OLIC PANEL globulin 2.6 g/dL 2.6-4. 2 Not Available [facility] (Lab) [address] [place], [address], 05/02/2022 19:06:42 05/02/20 22 05/02/2022 COMPR EHENS JUAN METAB OLIC PANEL A/G ratio 1.7 ratio 1.0-2. 0 Not Available [facility] (Lab) [address] [place], [address], 05/02/2022 19:06:42 05/02/20 22 05/02/2022 CBC/C OMPLE TE BLD COUNT W/DIF F white blood cells 6.3 x10'3 /uL 4.2-10 .8 Not Available [facility] (Lab) [address] [place], [address], 05/02/2022 19:04:49 05/02/20 22 05/02/2022 CBC/C OMPLE TE BLD COUNT W/DIF F red blood cells 4.03 x10'6 /uL 3.80-5 .20 Not Available [facility] (Lab) [address] [place], [address], 05/02/2022 19:04:49 05/02/20 22 05/02/2022 CBC/C OMPLE TE BLD COUNT W/DIF F hemoglobin 13.1 g/dL 12.0-1 5.6 Not Available [facility] (Lab) [address] [place], [address], 05/02/2022 19:04:49 05/02/20 22 05/02/2022 CBC/C OMPLE TE BLD COUNT W/DIF F hematocrit 40.1 % 35.7-4 5.7 Not Available [facility] (Lab) [address] [place], [address], 05/02/2022 19:04:49 05/02/20 22 05/02/2022 CBC/C OMPLE TE BLD COUNT W/DIF F mean red cell volume 99.5 fL 82.0-9 9.0 high Not Available [facility] (Lab) [address] [place], [address], 05/02/2022 19:04:49 05/02/20 22 05/02/2022 CBC/C OMPLE TE BLD COUNT W/DIF F mean red cell hemoglobin 32.5 pg 27.0-3 3.0 Not Available [facility] (Lab) [address] [place], [address], 05/02/2022 19:04:49 05/02/20 22 05/02/2022 CBC/C OMPLE TE BLD COUNT W/DIF F mean RBC HGB concentratio n 32.7 g/dL 31.0-3 6.0 Not Available [facility] (Lab) [address] [place], [address], 05/02/2022 19:04:49 05/02/20 22 05/02/2022 CBC/C OMPLE TE BLD COUNT W/DIF F red cell distribution width 12.4 % 11.8-1 5.5 Not Available [facility] (Lab) [address] [place], [address], 05/02/2022 19:04:49 05/02/20 22 05/02/2022 CBC/C OMPLE TE BLD COUNT W/DIF F platelets 291 x10'3 /uL 150-40 0 Not Available [facility] (Lab) [address] [place], [address], 05/02/2022 19:04:49 05/02/20 22 05/02/2022 CBC/C OMPLE TE BLD COUNT W/DIF F mean platelet volume 11.5 fL 9.0-12 .4 Not Available [facility] (Lab) [address] [place], [address], 05/02/2022 19:04:49 05/02/20 22 05/02/2022 CBC/C OMPLE TE BLD COUNT W/DIF F neutrophils 48.9 % 39.0-7 2.0 Not Available [facility] (Lab) [address] [place], [address], 05/02/2022 19:04:49 05/02/20 22 05/02/2022 CBC/C OMPLE TE BLD COUNT W/DIF F lymphocytes 39.3 % 16.0-4 7.0 Not Available [facility] (Lab) [address] [place], [address], 05/02/2022 19:04:49 05/02/20 22 05/02/2022 CBC/C OMPLE TE BLD COUNT W/DIF F monocytes 9.5 % 5.0-12 .0 Not Available [facility] (Lab) [address] [place], [address], 05/02/2022 19:04:49 05/02/20 22 05/02/2022 CBC/C OMPLE TE BLD COUNT W/DIF F eosinophils 1.7 % 1.0-7. 0 Not Available [facility] (Lab) [address] [place], [address], 05/02/2022 19:04:49 05/02/20 22 05/02/2022 CBC/C OMPLE TE BLD COUNT W/DIF F basophils 0.3 % 0.0-2. 0 Not Available [facility] (Lab) [address] [place], [address], 05/02/2022 19:04:49 05/02/20 22 05/02/2022 CBC/C OMPLE TE BLD COUNT W/DIF F immature granulocytes 0.3 % 0.00-0 .50 Not Available [facility] (Lab) [address] [place], [address], 05/02/2022 19:04:49 05/02/20 22 05/02/2022 CBC/C OMPLE TE BLD COUNT W/DIF F neutrophils, absolute count 3.10 x10'3 /uL 1.5-8. 0 Not Available [facility] (Lab) [address] [place], [address], 05/02/2022 19:04:49 05/02/20 22 05/02/2022 CBC/C OMPLE TE BLD COUNT W/DIF F lymphocytes, absolute count 2.49 x10'3 /uL 1.07-3 .43 Not Available [facility] (Lab) [address] [place], [address], 05/02/2022 19:04:49 05/02/20 22 05/02/2022 CBC/C OMPLE TE BLD COUNT W/DIF F monocytes, absolute count 0.60 x10'3 /uL 0.29-0 .99 Not Available [facility] (Lab) [address] [place], [address], 05/02/2022 19:04:49 05/02/20 22 05/02/2022 CBC/C OMPLE TE BLD COUNT W/DIF F eosinophils, absolute count 0.11 x10'3 /uL 0.02-0 .53 Not Available [facility] (Lab) [address] [place], [address], 05/02/2022 19:04:49 05/02/20 22 05/02/2022 CBC/C OMPLE TE BLD COUNT W/DIF F basophils, absolute count 0.02 x10'3 /uL 0.01-0 .08 Not Available [facility] (Lab) [address] [place], [address], 05/02/2022 19:04:49 05/02/20 22 05/02/2022 CBC/C OMPLE TE BLD COUNT W/DIF F immature granulocytes ,absolute 0.02 x10'3 /uL 0.00-0 .05 Not Available [facility] (Lab) [address] [place], [address], 05/02/2022 19:04:49 05/02/20 22 05/02/2022 CBC/C OMPLE TE BLD COUNT W/DIF F nucleated red blood cells 0.0 % -0 Not Available [facility] (Lab) [address] [place], [address], 05/02/2022 19:04:49 05/02/20 22 05/02/2022 CBC/C OMPLE TE BLD COUNT W/DIF F NRBC# 0.00 x10'3 /uL Not Available [facility] (Lab) [address] [place], [address], 05/02/2022 19:04:49 02/28/20 23 02/27/2023 CBC/C OMPLE TE BLD COUNT W/DIF F white blood cells 6.4 x10'3 /uL 4.2-10 .8 Not Available [facility] (Lab) [address] [place], [address], 02/27/2023 19:45:23 02/28/20 23 02/27/2023 CBC/C OMPLE TE BLD COUNT W/DIF F red blood cells 3.92 x10'6 /uL 3.80-5 .20 Not Available [facility] (Lab) [address] [place], [address], 02/27/2023 19:45:23 02/28/20 23 02/27/2023 CBC/C OMPLE TE BLD COUNT W/DIF F hemoglobin 12.7 g/dL 12.0-1 5.6 Not Available [facility] (Lab) [address] [place], [address], 02/27/2023 19:45:23 02/28/20 23 02/27/2023 CBC/C OMPLE TE BLD COUNT W/DIF F hematocrit 38.5 % 35.7-4 5.7 Not Available [facility] (Lab) [address] [place], [address], 02/27/2023 19:45:23 02/28/2002/27/2023 CBC/C OMPLE TE BLD COUNT W/DIF F mean red cell volume 98.2 fL 82.0-9 9.0 Not Available [facility] (Lab) [address] [place], [address], 02/27/2023 19:45:23 02/28/20 23 02/27/2023 CBC/C OMPLE TE BLD COUNT W/DIF F mean red cell hemoglobin 32.4 pg 27.0-3 3.0 Not Available [facility] (Lab) [address] [place], [address], 02/27/2023 19:45:23 02/28/2002/27/2023 CBC/C OMPLE TE BLD COUNT W/DIF F mean RBC HGB concentratio n 33.0 g/dL 31.0-3 6.0 Not Available [facility] (Lab) [address] [place], [address], 02/27/2023 19:45:23 02/28/20 23 02/27/2023 CBC/C OMPLE TE BLD COUNT W/DIF F red cell distribution width 12.9 % 11.8-1 5.5 Not Available [facility] (Lab) [address] [place], [address], 02/27/2023 19:45:23 02/28/20 23 02/27/2023 CBC/C OMPLE TE BLD COUNT W/DIF F platelets 322 x10'3 /uL 150-40 0 Not Available [facility] (Lab) [address] [place], [address], 02/27/2023 19:45:23 02/28/20 23 02/27/2023 CBC/C OMPLE TE BLD COUNT W/DIF F mean platelet volume 11.4 fL 9.0-12 .4 Not Available [facility] (Lab) [address] [place], [address], 02/27/2023 19:45:23 02/28/20 23 02/27/2023 CBC/C OMPLE TE BLD COUNT W/DIF F neutrophils 44.1 % 39.0-7 2.0 Not Available [facility] (Lab) [address] [place], [address], 02/27/2023 19:45:23 02/28/2002/27/2023 CBC/C OMPLE TE BLD COUNT W/DIF F lymphocytes 44.0 % 16.0-4 7.0 Not Available [facility] (Lab) [address] [place], [address], 02/27/2023 19:45:23 02/28/2002/27/2023 CBC/C OMPLE TE BLD COUNT W/DIF F monocytes 10.0 % 5.0-12 .0 Not Available [facility] (Lab) [address] [place], [address], 02/27/2023 19:45:23 02/28/2002/27/2023 CBC/C OMPLE TE BLD COUNT W/DIF F eosinophils 1.2 % 1.0-7. 0 Not Available [facility] (Lab) [address] [place], [address], 02/27/2023 19:45:23 02/28/2002/27/2023 CBC/C OMPLE TE BLD COUNT W/DIF F basophils 0.5 % 0.0-2. 0 Not Available [facility] (Lab) [address] [place], [address], 02/27/2023 19:45:23 02/28/2002/27/2023 CBC/C OMPLE TE BLD COUNT W/DIF F immature granulocytes 0.2 % 0.00-0 .50 Not Available [facility] (Lab) [address] [place], [address], 02/27/2023 19:45:23 02/28/20 23 02/27/2023 CBC/C OMPLE TE BLD COUNT W/DIF F neutrophils, absolute count 2.84 x10'3 /uL 1.5-8. 0 Not Available [facility] (Lab) [address] [place], [address], 02/27/2023 19:45:23 02/28/20 23 02/27/2023 CBC/C OMPLE TE BLD COUNT W/DIF F lymphocytes, absolute count 2.83 x10'3 /uL 1.07-3 .43 Not Available [facility] (Lab) [address] [place], [address], 02/27/2023 19:45:23 02/28/20 23 02/27/2023 CBC/C OMPLE TE BLD COUNT W/DIF F monocytes, absolute count 0.64 x10'3 /uL 0.29-0 .99 Not Available [facility] (Lab) [address] [place], [address], 02/27/2023 19:45:23 02/28/20 23 02/27/2023 CBC/C OMPLE TE BLD COUNT W/DIF F eosinophils, absolute count 0.08 x10'3 /uL 0.02-0 .53 Not Available [facility] (Lab) [address] [place], [address], 02/27/2023 19:45:23 02/28/20 23 02/27/2023 CBC/C OMPLE TE BLD COUNT W/DIF F basophils, absolute count 0.03 x10'3 /uL 0.01-0 .08 Not Available [facility] (Lab) [address] [place], [address], 02/27/2023 19:45:23 02/28/20 23 02/27/2023 CBC/C OMPLE TE BLD COUNT W/DIF F immature granulocytes ,absolute 0.01 x10'3 /uL 0.00-0 .05 Not Available [facility] (Lab) [address] [place], [address], 02/27/2023 19:45:23 02/28/20 23 02/27/2023 CBC/C OMPLE TE BLD COUNT W/DIF F nucleated red blood cells 0.0 % -0 Not Available [facility] (Lab) [address] [place], [address], 02/27/2023 19:45:23 02/28/20 23 02/27/2023 CBC/C OMPLE TE BLD COUNT W/DIF F NRBC# 0.00 x10'3 /uL Not Available [facility] (Lab) [address] [place], [address], 02/27/2023 19:45:23 02/28/20 23 02/27/2023 COMPR EHENS JUAN METAB OLIC PANEL sodium 141 mmol/ L 137-14 5 Not Available [facility] (Lab) [address] [place], [address], 02/27/2023 20:12:51 02/28/2002/27/2023 COMPR EHENS JUAN METAB OLIC PANEL potassium 5.1 mmol/ L 3.5-5. 1 Not Available [facility] (Lab) [address] [place], [address], 02/27/2023 20:12:51 02/28/2002/27/2023 COMPR EHENS JUAN METAB OLIC PANEL chloride 108 mmol/ L 98-107 high Not Available [facility] (Lab) [address] [place], [address], 02/27/2023 20:12:51 02/28/20 23 02/27/2023 COMPR EHENS JUAN METAB OLIC PANEL carbon dioxide 23 mmol/ L 22-30 Not Available [facility] (Lab) [address] [place], [address], 02/27/2023 20:12:51 02/28/20 23 02/27/2023 COMPR EHENS JUAN METAB OLIC PANEL anion gap 15.1 mmol/ L 14-22 Not Available [facility] (Lab) [address] [place], [address], 02/27/2023 20:12:51 02/28/20 23 02/27/2023 COMPR EHENS JUAN METAB OLIC PANEL glucose 92 mg/dL 70-99 Not Available [facility] (Lab) [address] [place], [address], 02/27/2023 20:12:51 02/28/20 23 02/27/2023 COMPR EHENS JUAN METAB OLIC PANEL BUN 17 mg/dL 8-19 Not Available [facility] (Lab) [address] [place], [address], 02/27/2023 20:12:51 02/28/20 23 02/27/2023 COMPR EHENS JUAN METAB OLIC PANEL creatinine 0.83 mg/dL 0.66-1 .25 Not Available [facility] (Lab) [address] [place], [address], 02/27/2023 20:12:51 02/28/20 23 02/27/2023 COMPR EHENS JUAN METAB OLIC PANEL GFR >60 Refer ence Range : [place] ge GFR Healt hy Adult : >60 [...] calcu lator is avail able on the [facility] websi te: https :[email or web address] [email or web address].kid [email or web address] rg/pr ofess ional s/kdo qi/gf r_cal culat or Not Available [facility] (Lab) [address] [place], [address], 02/27/2023 20:12:51 02/28/20 23 02/27/2023 COMPR EHENS JUAN METAB OLIC PANEL alkaline phosphatase 71 U/L 38-[address] [facility] (Lab) [address] [place], [address], 02/27/2023 20:12:51 02/28/20 23 02/27/2023 COMPR EHENS JUAN METAB OLIC PANEL alanine aminotransfe rase 11 U/L 0-35 Not Available [facility] (Lab) [address] [place], [address], 02/27/2023 20:12:51 02/28/20 23 02/27/2023 COMPR EHENS JUAN METAB OLIC PANEL aspartate aminotransfe rase 31 U/L 15-37 Not Available [facility] (Lab) [address] [place], [address], 02/27/2023 20:12:51 02/28/20 23 02/27/2023 COMPR EHENS JUAN METAB OLIC PANEL bilirubin, total 0.40 mg/dL 0.20-1 .30 Not Available [facility] [place] (Lab) [address] [place], [address], 02/27/2023 20:12:51 02/28/20 23 02/27/2023 COMPR EHENS JUAN METAB OLIC PANEL calcium 9.5 mg/dL 8.4-10 .2 Not Available [facility] [place] (Lab) [address] [place], [address], 02/27/2023 20:12:51 02/28/20 23 02/27/2023 COMPR EHENS JUAN METAB OLIC PANEL total protein 6.7 g/dL 6.3-8. 2 Not Available [facility] [place] (Lab) [address] [place], [address], 02/27/2023 20:12:51 02/28/20 23 02/27/2023 COMPR EHENS JUAN METAB OLIC PANEL albumin 4.0 g/dL 3.0-4. 4 Not Available [facility] [place] (Lab) [address] [place], [address], 02/27/2023 20:12:51 02/28/20 23 02/27/2023 COMPR EHENS JUAN METAB OLIC PANEL globulin 2.7 g/dL 2.6-4. 2 Not Available [facility] (Lab) [address] [place], [address], 02/27/2023 20:12:51 02/28/20 23 02/27/2023 COMPR EHENS JUAN METAB OLIC PANEL A/G ratio 1.5 ratio 1.0-2. 0 Not Available [facility] (Lab) [address] [place], [address], 02/27/2023 20:12:51 02/28/20 23 02/27/2023 LIPID PANEL cholesterol 187 mg/dL 140-19 9 NIH JET NSUS RECOM MENDA TION FOR MOO STERO L: ADULT CHILD LOW RISK: <200 <170 BORDE RLINE : <200- 239 ----- HIGH RISK: >240 >200 Not Available [facility] (Lab) [address] [place], [address], 02/27/2023 20:12:53 02/28/20 23 02/27/2023 LIPID PANEL triglyceride s 94 mg/dL 0-150 NIH JET NSUS REPOR T RECOM MENDA TION FOR TRIGL YCERI GABY: ADULT CHILD LOW RISK: <150 ----- BODER LINE: 150-1 99 ----- HIGH RISK: >200 ----- Not Available [facility] (Lab) [address] [place], [address], 02/27/2023 20:12:53 02/28/20 23 02/27/2023 LIPID PANEL HDL cholesterol 56 mg/dL 40- Not Available [facility] (Lab) [address] [place], [address], 02/27/2023 20:12:53 02/28/20 23 02/27/2023 LIPID PANEL LDL cholesterol, calculated 112 mg/dL [...] WILL NOT BE REPOR NOEMÍ. Not Available [facility] (Lab) [address] [place], [address], 02/27/2023 20:12:53 02/28/20 23 02/27/2023 T4 FREE free T4 1.00 NG/dL 0.78-2 .19 Not Available [facility] (Lab) [address] [place], [address], 02/27/2023 20:26:41 02/28/20 23 02/27/2023 T3 FREE free T3 3.1 pg/mL 2.77-5 .27 Not Available [facility] (Lab) [address] [place], [address], 02/27/2023 20:26:52 02/28/20 23 02/27/2023 TSH thyroid-stim ulating hormone 0.960 uIU/m L 0.465- 4.680 Not Available [facility] (Lab) [address] [place], [address], 02/27/2023 20:38:06 02/28/20 23 02/27/2023 HEMOG LOBIN A1C HA1C 5.6 % 4.0-6. 0 Diabe michael Scree sherice Crite jaye: <5.7% Consi stent with absen ce of diabe michael 5.7-6 .4% Consi stent with incre ased risk for diabe michael (pred iabet es) >OR=6 .5% Consi stent with diabe michael REFER ENCE: Diabe michael Care 2016, 39(Motta ppl.1 ):s13 -s22 Not Available [facility] (Lab) [address] [place], [address], 02/27/2023 21:48:53 09/18/20 23 09/18/2023 CBC/C OMPLE TE BLD COUNT W/DIF F white blood cells 5.5 x10'3 /uL 4.2-10 .8 Not Available [facility] (Lab) [address] [place], [address], 09/18/2023 19:16:50 09/18/20 23 09/18/2023 CBC/C OMPLE TE BLD COUNT W/DIF F red blood cells 4.06 x10'6 /uL 3.80-5 .20 Not Available [facility] (Lab) [address] [place], [address], 09/18/2023 19:16:50 09/18/20 23 09/18/2023 CBC/C OMPLE TE BLD COUNT W/DIF F hemoglobin 13.7 g/dL 12.0-1 5.6 Not Available [facility] (Lab) [address] [place], [address], 09/18/2023 19:16:50 09/18/20 23 09/18/2023 CBC/C OMPLE TE BLD COUNT W/DIF F hematocrit 40.4 % 35.7-4 5.7 Not Available [facility] (Lab) [address] [place], [address], 09/18/2023 19:16:50 09/18/20 23 09/18/2023 CBC/C OMPLE TE BLD COUNT W/DIF F mean red cell volume 99.5 fL 82.0-9 9.0 high Not Available [facility] (Lab) [address] [place], [address], 09/18/2023 19:16:50 09/18/20 23 09/18/2023 CBC/C OMPLE TE BLD COUNT W/DIF F mean red cell hemoglobin 33.7 pg 27.0-3 3.0 high Not Available [facility] (Lab) [address] [place], [address], 09/18/2023 19:16:50 09/18/20 23 09/18/2023 CBC/C OMPLE TE BLD COUNT W/DIF F mean RBC HGB concentratio n 33.9 g/dL 31.0-3 6.0 Not Available [facility] (Lab) [address] [place], [address], 09/18/2023 19:16:50 09/18/20 23 09/18/2023 CBC/C OMPLE TE BLD COUNT W/DIF F red cell distribution width 12.7 % 11.8-1 5.5 Not Available [facility] (Lab) [address] [place], [address], 09/18/2023 19:16:50 09/18/20 23 09/18/2023 CBC/C OMPLE TE BLD COUNT W/DIF F platelets 274 x10'3 /uL 150-40 0 Not Available [facility] (Lab) [address] [place], [address], 09/18/2023 19:16:50 09/18/20 23 09/18/2023 CBC/C OMPLE TE BLD COUNT W/DIF F mean platelet volume 11.4 fL 9.0-12 .4 Not Available [facility] (Lab) [address] [place], [address], 09/18/2023 19:16:50 09/18/20 23 09/18/2023 CBC/C OMPLE TE BLD COUNT W/DIF F neutrophils 48.0 % 39.0-7 2.0 Not Available [facility] (Lab) [address] [place], [address], 09/18/2023 19:16:50 09/18/20 23 09/18/2023 CBC/C OMPLE TE BLD COUNT W/DIF F lymphocytes 42.4 % 16.0-4 7.0 Not Available [facility] (Lab) [address] [place], [address], 09/18/2023 19:16:50 09/18/20 23 09/18/2023 CBC/C OMPLE TE BLD COUNT W/DIF F monocytes 7.2 % 5.0-12 .0 Not Available [facility] (Lab) [address] [place], [address], 09/18/2023 19:16:50 09/18/20 23 09/18/2023 CBC/C OMPLE TE BLD COUNT W/DIF F eosinophils 1.8 % 1.0-7. 0 Not Available [facility] (Lab) [address] [place], [address], 09/18/2023 19:16:50 09/18/20 23 09/18/2023 CBC/C OMPLE TE BLD COUNT W/DIF F basophils 0.4 % 0.0-2. 0 Not Available [facility] (Lab) [address] [place], [address], 09/18/2023 19:16:50 09/18/20 23 09/18/2023 CBC/C OMPLE TE BLD COUNT W/DIF F immature granulocytes 0.2 % 0.00-0 .50 Not Available [facility] (Lab) [address] [place], [address], 09/18/2023 19:16:50 09/18/20 23 09/18/2023 CBC/C OMPLE TE BLD COUNT W/DIF F neutrophils, absolute count 2.65 x10'3 /uL 1.5-8. 0 Not Available [facility] (Lab) [address] [place], [address], 09/18/2023 19:16:50 09/18/20 23 09/18/2023 CBC/C OMPLE TE BLD COUNT W/DIF F lymphocytes, absolute count 2.34 x10'3 /uL 1.07-3 .43 Not Available [facility] (Lab) [address] [place], [address], 09/18/2023 19:16:50 09/18/20 23 09/18/2023 CBC/C OMPLE TE BLD COUNT W/DIF F monocytes, absolute count 0.40 x10'3 /uL 0.29-0 .99 Not Available [facility] (Lab) [address] [place], [address], 09/18/2023 19:16:50 09/18/20 23 09/18/2023 CBC/C OMPLE TE BLD COUNT W/DIF F eosinophils, absolute count 0.10 x10'3 /uL 0.02-0 .53 Not Available [facility] (Lab) [address] [place], [address], 09/18/2023 19:16:50 09/18/20 23 09/18/2023 CBC/C OMPLE TE BLD COUNT W/DIF F basophils, absolute count 0.02 x10'3 /uL 0.01-0 .08 Not Available [facility] (Lab) [address] [place], [address], 09/18/2023 19:16:50 09/18/20 23 09/18/2023 CBC/C OMPLE TE BLD COUNT W/DIF F immature granulocytes ,absolute 0.01 x10'3 /uL 0.00-0 .05 Not Available [facility] (Lab) [address] [place], [address], 09/18/2023 19:16:50 09/18/20 23 09/18/2023 CBC/C OMPLE TE BLD COUNT W/DIF F nucleated red blood cells 0.0 % -0 Not Available [facility] (Lab) [address] [place], [address], 09/18/2023 19:16:50 09/18/20 23 09/18/2023 CBC/C OMPLE TE BLD COUNT W/DIF F NRBC# 0.00 x10'3 /uL Not Available [facility] (Lab) [address] [place], [address], 09/18/2023 19:16:50 09/18/20 23 09/18/2023 COMPR EHENS JUAN METAB OLIC PANEL sodium 140 mmol/ L 137-14 5 Not Available [facility] (Lab) [address] [place], [address], 09/18/2023 20:39:26 09/18/20 23 09/18/2023 COMPR EHENS JUAN METAB OLIC PANEL potassium 4.4 mmol/ L 3.5-5. 1 Not Available [facility] (Lab) [address] [place], [address], 09/18/2023 20:39:26 09/18/20 23 09/18/2023 COMPR EHENS JUAN METAB OLIC PANEL chloride 108 mmol/ L 98-107 high Not Available [facility] (Lab) [address] [place], [address], 09/18/2023 20:39:26 09/18/20 23 09/18/2023 COMPR EHENS JUAN METAB OLIC PANEL carbon dioxide 24 mmol/ L 22-30 Not Available [facility] (Lab) [address] [place], [address], 09/18/2023 20:39:26 09/18/20 23 09/18/2023 COMPR EHENS JUAN METAB OLIC PANEL anion gap 12.4 mmol/ L 14-22 low Not Available [facility] (Lab) [address] [place], [address], 09/18/2023 20:39:26 09/18/20 23 09/18/2023 COMPR EHENS JUAN METAB OLIC PANEL glucose 105 mg/dL 70-99 high Not Available [facility] (Lab) [address] [place], [address], 09/18/2023 20:39:26 09/18/20 23 09/18/2023 COMPR EHENS JUAN METAB OLIC PANEL BUN 10 mg/dL 8-19 Not Available [facility] (Lab) [address] [place], [address], 09/18/2023 20:39:26 09/18/20 23 09/18/2023 COMPR EHENS JUAN METAB OLIC PANEL creatinine 0.67 mg/dL 0.66-1 .25 Not Available [facility] (Lab) [address] [place], [address], 09/18/2023 20:39:26 09/18/20 23 09/18/2023 COMPR EHENS JUAN METAB OLIC PANEL GFR >60 Refer ence Range : [place] ge GFR Healt hy Adult : >60 [...] calcu lator is avail able on the [facility] websi te: https ://teresa w.kid linus.o rg/pr ofess ional s/kdo qi/gf r_cal culat or Not Available [facility] (Lab) [address] [place], [address], 09/18/2023 20:39:26 09/18/20 23 09/18/2023 COMPR EHENS JUAN METAB OLIC PANEL alkaline phosphatase 88 U/L 38-[address] [facility] (Lab) [address] [place], [address], 09/18/2023 20:39:26 09/18/20 23 09/18/2023 COMPR EHENS JUAN METAB OLIC PANEL alanine aminotransfe rase 9 U/L 0-35 Not Available [facility] (Lab) [address] [place], [address], 09/18/2023 20:39:26 09/18/20 23 09/18/2023 COMPR EHENS JUAN METAB OLIC PANEL aspartate aminotransfe rase 29 U/L 15-37 Not Available [facility] (Lab) [address] [place], [address], 09/18/2023 20:39:26 09/18/20 23 09/18/2023 COMPR EHENS JUAN METAB OLIC PANEL bilirubin, total 0.50 mg/dL 0.20-1 .30 Not Available [facility] (Lab) [address] [place], [address], 09/18/2023 20:39:26 09/18/20 23 09/18/2023 COMPR EHENS JUAN METAB OLIC PANEL calcium 9.7 mg/dL 8.4-10 .2 Not Available [facility] (Lab) [address] [place], [address], 09/18/2023 20:39:26 09/18/20 23 09/18/2023 COMPR EHENS JUAN METAB OLIC PANEL total protein 7.0 g/dL 6.3-8. 2 Not Available [facility] (Lab) [address] [place], [address], 09/18/2023 20:39:26 09/18/20 23 09/18/2023 COMPR EHENS JUAN METAB OLIC PANEL albumin 4.1 g/dL 3.0-4. 4 Not Available [facility] (Lab) [address] [place], [address], 09/18/2023 20:39:26 09/18/20 23 09/18/2023 COMPR EHENS JUAN METAB OLIC PANEL globulin 2.9 g/dL 2.6-4. 2 Not Available [facility] (Lab) [address] [place], [address], 09/18/2023 20:39:26 09/18/20 23 09/18/2023 COMPR EHENS JUAN METAB OLIC PANEL A/G ratio 1.4 ratio 1.0-2. 0 Not Available [facility] (Lab) [address] [place], [address], 09/18/2023 20:39:26 09/18/20 23 09/18/2023 LIPID PANEL cholesterol 183 mg/dL 140-19 9 NIH JET NSUS RECOM MENDA TION FOR MOO STERO L: ADULT CHILD LOW RISK: <200 <170 BORDE RLINE : <200- 239 ----- HIGH RISK: >240 >200 Not Available [facility] (Lab) [address] [place], [address], 09/18/2023 20:39:31 09/18/20 23 09/18/2023 LIPID PANEL triglyceride s 150 mg/dL 0-150 NIH JET NSUS REPOR T RECOM MENDA TION FOR TRIGL YCERI GABY: ADULT CHILD LOW RISK: <150 ----- BODER LINE: 150-1 99 ----- HIGH RISK: >200 ----- Not Available [facility] (Lab) [address] [place], [address], 09/18/2023 20:39:31 09/18/20 23 09/18/2023 LIPID PANEL HDL cholesterol 51 mg/dL 40- Not Available [facility] (Lab) [address] [place], [address], 09/18/2023 20:39:31 09/18/20 23 09/18/2023 LIPID PANEL [...] WILL NOT BE REPOR NOEMÍ. Not Available [facility] (Lab) [address] [place], [address], 09/18/2023 20:39:31 09/18/20 23 09/18/2023 T4 FREE free T4 1.07 NG/dL 0.78-2 .19 Not Available [facility] (Lab) [address] [place], [address], 09/18/2023 20:43:40 09/18/20 23 09/18/2023 T3 FREE free T3 3.2 pg/mL 2.77-5 .27 Not Available [facility] (Lab) [address] [place], [address], 09/18/2023 20:43:45 09/18/20 23 09/18/2023 TSH thyroid-stim ulating hormone 0.916 uIU/m L 0.465- 4.680 Not Available [facility] (Lab) [address] [place], [address], 09/18/2023 21:04:18 09/18/20 23 09/18/2023 HEMOG LOBIN A1C HA1C 5.3 % 4.0-6. 0 Diabe michael Scree sherice Crite jaye: <5.7% Consi stent with absen ce of diabe michael 5.7-6 .4% Consi stent with incre ased risk for diabe michael (pred iabet es) >OR=6 .5% Consi stent with diabe michael REFER ENCE: Diabe michael Care 2016, 39(Motta ppl.1 ):s13 -s22 Not Available [facility] (Lab) [address] [place], [address], 09/18/2023 21:17:41 11/14/19 22 MAMMO , scree sherice, digit al, bilat eral [facility] [address] [place] [address] [phone] Patien t Name: BENNETTGERMÁNMARGOT SORTOLTTONYA NIKHIL Clay Access ion #: [id number] Sex: F : 1949 6 Locati on: RA2 Attend ing Physic zhane: RADHA STEARNS Orderi ng Physic zhane: RAÚL STEARNSCONCETTA Bonilla Exam Date: 11/14/19 12:15 PM Exam Name: MG MAX RICARDO BILAT SCREEN Admitt ing Diagno sis(es ): RADIOL OGY REPORT - FINAL EXAM: DIGITSayda Bonilla DAVION BILAT SCREEN HISTOR Y: Screen ing [...] on the right. Page 1 of 2 [facility] Name: TONYA GUNTER Access ion #: [id number] Sex: F : 1949 6 Exam Date: 11/14/19 12:15 PM Exam Name: MG MAX RICARDO BILAT SCREEN Admitt ing Diagno sis(es ): [...] Exam should be part of the period health exam-a bout every 3 years for women in their 20s and 30s and every year for women 40 and over. Breast self-e xam is an option for women in their 20s. Any breast change noted on the breast self-e xam she would be report ed prompt ly to the [facility] er. A negati ve mammog mikael report should not discou rage follow -up or biopsy of a clinic ally signif icant findin g and/or abnorm ality. Dense breast tissue may obscur e small neopla sms. This patien esau has been entere d into a mammog mikael remind er system with a target date for her next mammog nelson. Create d and electr onical ly signed by: Salvatore herbert MD Signed Date: 11/14/19 4:36 PM (CT) Dictat ed by: Salvatore herbert MD (CT) (CT) Page 2 of 2 [id number] [facility] (Imaging) [address] [place], [address], 12/06/2022 23:58:23 11/14/19 DEXA, axial skele ton [facility] [address] [place] [address] [facility] Name: TONYA GUNTER Access ion #: [id number] Sex: F : 1949 6 Locati on: RA2 Attend ing Physic zhane: RADHA STEARNS [facility] Phys[facility]ane: RADHA STEARNS Exam Date: 11/14/19 [...] densit y is 0.883 g/cm2 calciu m mukul trujillo te, correl ating with a T-scor e of -1.0. Page 1 of 2 [facility] t Name: TONYA GUNTER Access ion #: [id number] Sex: F : 1949 6 Exam [...] MD (CT) (CT) Page 2 of 2 [id number] [facility] (Imaging) [address] [place], [address], 12/06/2022 23:58:23 02/29/20 23 MAMMO , scree sherice, digit al, bilat eral [facility] [address] [place] [address] [facility] Name: TONYA GUNTER Access ion #: [id number] Sex: F : 1949 8 Locati on: RA2 Attend ing Physic zhane: RADHA STEARNS Orderi ng Physic zhane: RADHA STEARNS Exam Date: 023 10:44 AM Exam Name: DIGITA L DAVION BILAT SCREEN [...] tion are seen. Page 1 of 2 [facility] Name: TONYA GUNTER Access ion #: [id number] Sex: F : 1949 8 Exam Date: 023 10:44 AM Exam Name: DIGITA L DAVION BILAT SCREEN [...] ed prompt ly to the [facility] er. A negati ve mammog mikael [...] 9:32 AM (CT) Page 2 of 2 [id number] [facility] (Imaging) [address] [place], [address], 08/18/2023 17:00:05 02/13/20 24 02/13/2024 MAMMO , scree sherice, digit al, bilat eral No observ ation record ed. [email or web address] [facility] [address] [place] [address], [place], [address], 04/22/2024 09:04:36 Result Notes Documentation Provider Name and Address Organization Details Recorded Time Dexa, Axial Skeleton : [facility] [address] [place] [address] Patient Name: CHIP LEONARDO Sex: F : 1950 Location: [facility] Attending Physician: LAURA STEARNS Ordering Physician: LAURA STEARNS Exam Date: 11/14/2021 12:15 PM Exam Name: XR DEXA AXIAL/HIP/PELVIS/SPINE Admitting Diagnosis(es): RADIOLOGY REPORT - FINAL EXAM: XR DEXA AXIAL/HIP/PELVIS/SPINE HISTORY: postmenopausal state 71-year-old female with osteoporosis screening. COMPARISON: None available. TECHNIQUE: Dual energy x-ray of absorption examination of the bilateral hips and lumbar spine in AP projection was performed. FINDINGS: Lumbar Spine (L1-L4): The mean bone mineral density is 0.973 g/cm2 hydroxyapatite, correlating with a T-score of -1.8. Bilateral hips: The mean bone mineral density is 0.883 g/cm2 calcium hydroxyapatite, correlating with a T-score of -1.0. Page 1 of 2 [facility] Patient Name: CHIP LEONARDO Sex: F : 1950 Exam Date: 11/14/2021 12:15 PM Exam Name: XR DEXA AXIAL/HIP/PELVIS/SPINE Admitting Diagnosis(es): IMPRESSION: 1. The patient's lumbar spine T-score is consistent with osteopenia. 2. The patient's bilateral hip T-score is consistent with normal bone mineral density overall. It should be noted that the BMD of the femoral necks is consistent with osteopenia. According to the World Health Organization, T-score values greater than -1.0 are normal, values between -1.0 and -2.5 are categorized as osteopenia, T-score of -2.5 or more are categorized as osteoporosis. Created and electronically signed by: Salvatore Nava MD Signed Date: 11/14/2021 12:44 PM (CT) Dictated by: Salvatore Nava MD (CT) (CT) Page 2 of 2 Not Available [facility] 12/06/2022 23:58:23 Mammo, Screening, Digital, Bilateral : [address] [address] Patient Name: CHIP LEOANRDO Sex: F : 1950 Location: [facility] Attending Physician: LAURA STEARNS Ordering Physician: LAURA STEARNS Exam Date: 11/14/2021 12:15 PM Exam Name: MG DIGITAL DAVION BILAT SCREEN Admitting Diagnosis(es): RADIOLOGY REPORT - FINAL EXAM: MG DIGITAL DAVION BILAT SCREEN HISTORY: Screening mammogram 71-year-old female with no current breast complaints. COMPARISON: None available. TECHNIQUE: Bilateral CC and MLO views of the breasts were performed. Digital Mammography images were obtained. CAD (computer assisted detection) was utilized. FINDINGS: The breasts are heterogeneously dense, which may obscure small masses. The right breast is diffusely more dense than the left. There are typically benign calcifications in both breasts, more so on the right. Page 1 of 2 [facility] Patient Name: CHIP LEONARDO Sex: F : 1950 Exam Date: 11/14/2021 12:15 PM Exam Name: DIGITAL DAVION BILAT SCREEN Admitting Diagnosis(es): No masses, asymmetries, suspicious calcifications, or architectural distortion are seen. IMPRESSION: BIRADS 2: Assessment complete. Benign findings. Recommend annual screening mammography. According to the [employer], yearly mammograms are recommended starting at age 40 and continuing as long as the woman is in good health. Clinical Breast Exam should be part of the periodic health exam-about every 3 years for women in their 20s and 30s and every year for women 40 and over. Breast self-exam is an option for women in their 20s. Any breast change noted on the breast self-exam she would be reported promptly to the patient's health care provider. A negative mammography report should not discourage follow-up or biopsy of a clinically significant finding and/or abnormality. Dense breast tissue may obscure small neoplasms. This patient has been entered into a mammography reminder system with a target date for her next mammogram. Created and electronically signed by: Salvatore Nava MD Signed Date: 11/14/2021 4:36 PM (CT) Dictated by: Salvatore Nava MD (CT) (CT) Page 2 of 2 Not Available [facility] 12/06/2022 23:58:23 Mammo, Screening, Digital, Bilateral : [address] [address] Patient Name: CHIP LEONARDO Sex: F : 1950 Location: [facility] Attending Physician: LAURA STEARNS Ordering Physician: LAURA STEARNS Exam Date: 02/27/2023 10:44 AM Exam Name: DIGITAL DAVION BILAT SCREEN Admitting Diagnosis(es): RADIOLOGY REPORT - FINAL EXAM: MG DIGITAL DAVION BILAT SCREEN HISTORY: Screening mammogram 72-year-old female with no current breast complaints. COMPARISON: 11/14/2021 TECHNIQUE: Bilateral CC and MLO views of the breasts were performed. Digital Mammography images were obtained. CAD (computer assisted detection) was utilized. FINDINGS: The breasts are heterogeneously dense, which may obscure small masses. No new masses, developing asymmetries, suspicious calcifications, or architectural distortion are seen. Page 1 of 2 [facility] Patient Name: CHIP LEONARDO Sex: F : 1950 Exam Date: 02/27/2023 10:44 AM Exam Name: DIGITAL DAVION BILAT SCREEN Admitting Diagnosis(es): IMPRESSION: BIRADS 1: Assessment complete. Negative. Recommend annual screening mammography. According to the [employer], yearly mammograms are recommended starting at age 40 and continuing as long as the woman is in good health. Clinical Breast Exam should be part of the periodic health exam-about every 3 years for women in their 20s and 30s and every year for women 40 and over. Breast self-exam is an option for women in their 20s. Any breast change noted on the breast self-exam she would be reported promptly to the patient's health care provider. A negative mammography report should not discourage follow-up or biopsy of a clinically significant finding and/or abnormality. Dense breast tissue may obscure small neoplasms. This patient has been entered into a mammography reminder system with a target date for her next mammogram. Created and electronically signed by: Salvatore Nava MD Signed Date: 02/28/2023 9:32 AM (CT) Dictated by: Salvatore Nava MD (CT) (CT) Page 2 of 2 Laura Stearns MD [address] [place] [address], [phone], [facility] [employer] 08/18/2023 17:00:05 Problems Name Problem SNOMED Code Status Onset Date Resolution Date Notes Provider Name and Address Organization Details Recorded Time Osteopenia 494542739 Active 2020 Not Available [facility] 3 03:43:49 Vitamin D deficiency 27154826 Active 2020 Not Available [facility] 3 03:43:49 Bipolar I disorder 353721784 Active 2020 Not Available [facility] 3 03:43:49 Hart applanatio n tonometry Completed 202008/24/2021 Not Available [facility] 3 23:56:48 Parkinson' s disease 36167865 Active 2020 Not Available [facility] 3 03:43:49 History of bariatric surgical procedure 162049780 Active 2020 Not Available [facility] 3 03:43:49 Hyperglyce meggan 74735426 Active 2020 Not Available [facility] 3 03:43:49 Fatigue 15230814 Active 2021 Not Available [facility] 3 03:43:49 Tremor 95609274 Active 2021 Not Available [facility] 3 03:43:49 Problem Notes None recorded. Procedures Surgical History Date Name Laterality Status Provider Name and Address Organization Details Recorded Time 02/28/20 Medicare Wellness CPT Code, Initial completed Mikala Haley RN [facility] [employer] 02/27/2023 14:10:39 Cholecystectomy completed Not Available [facility] 12/06/2022 23:56:13 Gastric Bypass completed Not Available [employer] 12/06/2022 23:56:13 repair of meniscus completed Not Available [employer] 12/06/2022 23:56:13 Appendectomy completed Not Available [facility] 12/06/2022 23:56:13 Dilation and curettage completed Not Available [employer] 12/06/2022 23:56:13 Hysterectomy completed Not Available [employer] 12/06/2022 23:56:13 Imaging Results None recorded. Procedure Notes None recorded. Medical Equipment None Reported. Allergies Allergen ID Allergen Name Allergen Category Reaction Reaction Severity Criticality Documentation Date Start Date Code Code System Note Provider Name and Address Organization Details Recorded Time 11868 Substance with sulfonami de structure and antibacte rial mechanism of action (substanc e) medicatio n anaphylax is Not available Not available 12/06/2022 32272 8003 SNOMED Not Available [facility] 3 23:58:09 Medications Name Sig Start Date [...] Heart rate Body temperature Body weight Systolic And Diastolic Provider Name and Address Organization Details Last Updated DateTime 2 29.7 kg/m2 152.4 cm 60 /min 97.7 [degF] 25457.0 4 g 126/70 mm[Hg] Not Available [facility] 3 23:56:30 Date Recorded Pain severity - 0-10 verbal numeric rating [Score] - Reported Provider Name and Address Organization Details Last Updated DateTime 02/27/2023 0 Mikala Haley RN [facility] [employer] [facility] 02/27/2023 14:10:53 Date Recorded Body height Body mass index (BMI) Body weight Body temperature Heart rate Systolic And Diastolic Provider Name and Address Organization Details Last Updated DateTime 3 152.4 cm 30.9 kg/m2 54858.5 9 g 98.6 [degF] 57 /min 120/82 mm[Hg] MURRAY Akers [facility] [employer] [facility] 3 14:00:25 Date Recorded Body mass index (BMI) Body height Heart rate Body temperature Body weight Systolic And Diastolic Provider Name and Address Organization Details Last Updated DateTime 2 31.2 kg/m2 152.4 cm 62 /min 96.9 [degF] 59431.7 8 g 122/78 mm[Hg] Not Available [facility] 3 23:56:30 Date Recorded Body mass index (BMI) Body height Heart rate Body temperature Body weight Systolic And Diastolic Provider Name and Address Organization Details Last Updated DateTime 2 30.9 kg/m2 152.4 cm 54 /min 98.3 [degF] 04279.5 9 g 124/80 mm[Hg] Not Available [facility] 3 23:56:30 Date Recorded Body height Body mass index (BMI) Body weight Body temperature Heart rate Systolic And Diastolic Provider Name and Address Organization Details Last Updated DateTime 3 152.4 cm 29.7 kg/m2 35870.0 4 g 97.7 [degF] 49 /min 120/80 mm[Hg] MURRAY Akers [facility] [employer] [facility] 3 14:47:38 Social History Question Answer Notes LastModified by Organization Details LastModified Time Tobacco Smoking Status Never Smoker Not Available [facility] 12/06/2022 23:55:55 Do You Have An Advance Directive? Yes MIGRATION.030 [id number] Information not available 12/06/2022 Are You Blind Or Do You Have Difficulty Seeing? No MIGRATION.030 886771 Information not available 12/06/2022 What Is Your Level Of Caffeine Consumption? Occasional MIGRATION.030 587488 Information not available 12/06/2022 In The 14 Days Before Symptom Onset, Have You Had Close Contact With A Laboratory-confi rmed COVID-19 While That Case Was Ill? No MIGRATION.030 899393 Information not available 12/06/2022 In The 14 Days Before Symptom Onset, Have You Had Close Contact With A Person Who Is Under Investigation For COVID-19 While That Person Was Ill? No MIGRATION.030 442667 Information not available 12/06/2022 Are You Deaf Or Do You Have Serious Difficulty Hearing? No MIGRATION.030 323654 Information not available 12/06/2022 What Type Of Diet Are You Following? REGULAR MIGRATION.030 826686 Information not available 12/06/2022 What Is The Highest Grade Or Level Of School You Have Completed Or The Highest Degree You Have Received? [id number] MIGRATION.300 796882 Information not available 12/06/2022 Have There Been Any Changes To Your Family Or Social Situation? No MIGRATION.030 155982 Information not available 12/06/2022 What Is The Fluoride Status Of Your Home? Unknown MIGRATION.030 186436 Information not available 12/06/2022 Are There Any Guns Present In Your Home? No MIGRATION.030 028277 Information not available 12/06/2022 Do You Use Insect Repellent Routinely? Yes MIGRATION.030 444490 Information not available 12/06/2022 Where Do You Live? SingleLevelHouse With Basement MIGRATION.030 752225 Information not available 12/06/2022 Do You Have A Medical Power Of Import Export Agent? Yes MIGRATION.030 008186 Information not available 12/06/2022 What Was The Date Of Your Most Recent Tobacco Screening? 09/18/2023 [email or web address] Information not available 09/18/2023 Do You Have Any Pets? No MIGRATION.0301 324974 Information not available 12/06/2022 What Is Your Relationship Status? MIGRATION.0301 031251 Information not available 12/06/2022 Do You Use Your Seat Belt Or Car Seat Routinely? Yes MIGRATION.0301 013625 Information not available 12/06/2022 Do You Have Smoke And Carbon Monoxide Detectors In Your Home? Yes MIGRATION.0301 679314 Information not available 12/06/2022 Are You Passively Exposed To Smoke? No MIGRATION.0301 803956 Information not available 12/06/2022 Are There Any Smokers In Your House? No MIGRATION.0301 166857 Information not available 12/06/2022 What Types Of Sporting Activities Do You Participate In? None MIGRATION.0301 580479 Information not available 12/06/2022 Do You Use Sunscreen Routinely? Yes MIGRATION.0301 438115 Information not available 12/06/2022 Has Tobacco Cessation Counseling Been Provided? No Not Needed-nev er Smoked MIGRATION.0301 921116 Information not available 12/06/2022 Have You Recently Traveled Abroad? No MIGRATION.0301 514019 Information not available 12/06/2022 Do You Have Difficulty Walking Or Climbing Stairs? Yes MIGRATION.0301 317084 Information not available 12/06/2022 Do You Have Any Dietary Restrictions? No MIGRATION.0301 363921 Information not available 12/06/2022 Sex: Female Functional Status Question Answer Note LastModified by Organizat ion Details LastModified Time Do you use any illicit or recreational drugs? No MIGRATION.406357 7851 Information not available 12/06/2022 Do you or have you ever used any other forms of tobacco or nicotine? No MIGRATION.354880 5963 Information not available 12/06/2022 What is your level of alcohol consumption? None MIGRATION.390160 2689 Information not available 12/06/2022 Do you have transportation difficulties? No MIGRATION.354353 5778 Information not available 12/06/2022 Are you able to walk independently without assistance or assistive devices? YESWOREST MIGRATION.538950 0117 Information not available 12/06/2022 Do you have difficulty doing errands alone? Yes pt does not drive MIGRATION.289549 8048 Information not available 12/06/2022 Are you able to care for yourself independently? Yes MIGRATION.043032 0658 Information not available 12/06/2022 Do you have difficulty dressing, bathing, grooming, or toileting? No MIGRATION.945380 9107 Information not available 12/06/2022 What is your exercise level? None MIGRATION.911392 9046 Information not available 12/06/2022 Mental Status Question Answer Note LastModified by Organizat ion Details LastModified Time Do you feel stressed (tense, restless, nervous, or anxious, or unable to sleep at night)? [id number] MIGRATION.51140440 26 Information not available 12/06/2022 Do you have difficulty concentrating, remembering or making decisions? No MIGRATION.76472912 26 Information not available 12/06/2022 Family History Relationship Description Onset Age of this Age Resolved Age Notes LastModified by Organization Details LastModified Time Father Alzheimer's disease MIGRATION.754 [id number] Not available 12/06/2022 23:56:14 Mother Alzheimer's disease MIGRATION.833 [id number] Not available 12/06/2022 23:56:14 Brother Diabetes mellitus x2 MIGRATION.397 2983800 Not available 12/06/2022 23:56:14 Brother Malignant neoplasm of pancreas 49 MIGRATION.208 9286055 Not available 12/06/2022 23:56:14 Brother Atrial fibrillation MIGRATION.399 [id number] Not available 12/06/2022 23:56:14 Unspecified Relation Diabetes mellitus matern al side MIGRATION.148 [id number] Not available 12/06/2022 23:56:14 Medical History Condition Response NERVE DISEASE Y BLINDNESS N RHEUMATIC FEVER N KIDNEY STONES N BLADDER PROBLEMS N MRSA N OTHER # 1 Y POLIO N LUNG DISEASE/DISORDER N HISTORY OF DRUG ABUSE N RADIATION / CHEMOTHERAPY N COPD N Other # 2 N BLOOD DISEASES N EAR OR HEARING PROBLEMS N MUMPS N SHINGLES N BOWEL PROBLEMS N DEPRESSION (INCLUDING POST ) Y STROKE/TIA N ULCERS N BENIGN PROSTATIC HYPERPLASIA [...] high-dose, quadrivalent, PF 2 completed Not Available [facility] 09/25/2023 03:43:50 influenza, unspecified formulation 3 completed Not Available [facility] 09/25/2023 03:43:50 Past Encounters Encounter ID Performer Location Encounter Start Date Encounter Closed Date Diagnosis/Indication Diagnosis SNOMED-CT Code Diagnosis ICD10 Code Diagnosis IMO Codes Diagnosis Note [id number] Christine Calix MD [facility] [place] [address] [place] [address] 08/24/2021 00:00:00 08/24/2021 16:54:02 [id number] Laura Stearns MD [facility] Internal Med [place] [address] [place] [address] 11/01/2021 00:00:00 11/06/2021 17:41:51 [id number] Laura Stearns MD [facility] Internal Med [place] [address] [facility] y , [place] [address] 05/02/2022 00:00:00 05/06/2022 20:54:08 [id number] Laura Stearns MD [facility] [place] [address] [place] [address] y , [place] [address] 09/05/2022 00:00:00 09/27/2022 12:01:02 [id number] Laura Stearns MD [facility] Internal [place] [address] [place] [address] y , [place] [address] 02/27/2023 13:52:21 02/27/2023 14:32:04 Adult health examination 892726449 Z00.00 Screening for disorder 398050504 Z13.9 Hyperglycemia 76200901 R 73.9 Fatigue 70556825 R53.83 Screening for cardiovascular system disease 178393585 Z13.6 Tremor 79871155 R25.1 Bipolar I disorder 59391 6008 F31.9 [id number] Laura Stearns MD [facility] Internal [place] [address] [place] [address] y , [place] [address] 09/18/2023 14:28:50 09/18/2023 15:42:52 Hyperglycemia 42810046 R73.9 Fatigue 03265166 R53.83 Screening for cardiovascular system disease 532994364 Z13.6 Renewal of prescription 804172697 Z76.0 Parkinson's disease 4904 9000 G20.A1 Bipolar I disorder 79840 6008 F31.9 Health Concerns Section Related Observation LastModified by Organization Detai ls LastModified Time None Recorded Concern Status LastModified by Organization Details LastModified Time None Recorded Advance Directives Directive Y: Payers Insurance Date Sequence Insurance Name Policy Number Policy Mcclendon Covered Member ID Mcclendon Member ID Guarantor Name 09/18/2023 1 [facility] (MEDICARE REPLACEMENT/A DVANTAGE - PPO) [id number] Chip Leonardo [id number] Chip Leonardo Notes Date Note Type Note Provider Name and Address Organization Details Recorded Time 02/27/2023 text/html some fatigue blood sugar up a little bit wellness completed GERD doing fine tremor stable Laura Stearns MD [address], [place], [address], [employer] [facility] 03/03/2023 16:03:42 09/18/2023 text/html He has had some nonspecific fatigue. Parkinson's has been doing fine medicines no side effects. Bipolar disorder she has had no behavioral outburst. Tremors been doing fine Laura Stearns MD [address], [place], [address], [employer] 09/18/2023 19:00:05 OBGyn Episode No OBEpisode recorded.
[2025-07-10 10:53] VITALS: BP 151/70; PULSE 60; RESP 16; TEMP 36.5; O2SAT 99; BMI 30.7
[2025-07-10] MEDS: LACTATED RINGERS 1,000 ML 150 ML IV CONT (11:04)
--- NOTE | 2025-07-10 12:05 | P.PNAN_ITS ---
Anes - Initial Pre Proc Eval Procedure: Operation Date: 07/10/25 11:30 Proposed Procedures p Screening Colonoscopy - Raoul Rojas MD Date/Time: 07/10/25 12:05 Surgeon: Raoul Rojas MD Pre Op Diagnosis: Encounter for screening for malignant neoplasm of Patient Data Age: 75 Gender: F Height: 1.52 m Weight: 71.4 kg Last Vital Signs Temp 97.7 F 07/10/25 10:53 Pulse 60 07/10/25 10:53 Resp 16 07/10/25 10:53 BP 151/70 H 07/10/25 10:53 Pulse Ox 99 07/10/25 10:53 O2 Del Method Room Air 07/10/25 10:53 Allergies Allergy/AdvReac Type Severity Reaction Status Date / Time Sulfa (Sulfonamide AdvReac Intermediate Difficulty Verified 07/10/25 10:51 Antibiotics) Breathing Home Medications ?Medication ?Instructions ?Recorded ?Confirmed ?Type lamotrigine 25 mg tablet 25 mg PO DAILY 02/07/2312/30 History omeprazole 40 mg capsule,delayed 40 mg PO DAILY 07/10/25 History release topiramate 25 mg tablet 25 mg PO DAILY 02/07/2312/30 History anastrozole 1 mg tablet 1 mg PO DAILY 09/22/2407/10 History carbidopa 25 mg-levodopa 100 mg 1 tablet PO TID #300 t abs 03/23/25 07/10/25 Rx tablet primidone 50 mg tablet 50 mg PO DAILY #90 tabs 03/0807/10/25 Rx propranolol 60 mg capsule,24 60 mg PO DAILY #90 caps 0 03/23/25 07/10/25 Rx hr,extended release Patient hx anesthesia problems: none Family hx anesthesia problems: none Results Review: All pre-operative results and documents have been reviewed as part of the pre- operative evaluation. [facility] Past Medical History Medical History Benign essential tremor Minimal cognitive impairment BMI 31.0-31.9,adult Surgical History Surgical History H/O lateral meniscus repair of left knee Hx of gastric bypass History of cholecystectomy H/O: hysterectomy History of appendectomy Family History Family History Mother Cardiovascular disease Right-sided heart failure Alzheimer disease Father Diabetes mellitus Depression Anxiety Cerebrovascular accident Alzheimer disease Sibling Pancreatic cancer Diabetes mellitus Hypertension Son Alcoholism Asthma Bipolar 1 disorder Grandparent Diabetes mellitus Hypertension Cardiovascular disease Alzheimer disease Thyroid disorder Social History Social History Smoking status: Never smoker Second hand tobacco smoke exposure: Yes Alcohol intake: never Substance use: never Substance use type: does not use Lack of Transportation: No Lack of Food: Never True Current Housing: I Have Housing Concerned About Future Housing: No Difficulty Paying Gas/Electric Bills: No Difficulty Paying for Meds: No Currently Unemployed: No Education: Associate Degree Difficulty w/ Childcare or Family Care: No Living arrangements: with family Occupation/Education: retired 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 Gender identity (if verbalized by the patient): Female Anes - Eval Final PreProcedure Day of Procedure 07/10/25 12:05 Patient weight: obese Lungs: normal air movement Airway: Mallampati scale class II Neurological: alert and oriented Last oral intake: >/= 8 hours ASA classification: III Emergent: no Anesthetic plan: proceed Anesthesia type and monitoring: general GIVS and standard monitoring Results Review: All pre-operative results and documents have been reviewed as part of the pre- operative evaluation. Parkinsonism, w tremors, mild cog impairment by hx. Informed Consent: The patient's anesthetic plan and its attendant risks and benefits were discussed with the patient/family/POA. Questions were solicited and answers provided to the satisfaction of the patient/family/POA.
--- NOTE | 2025-07-10 12:18 | PM.IMHP ---
H&P: HPI History of Present Illness Date/Time: 07/10/25 12:18 Chief Complaint: Screening colonoscopy Narrative: This is the patient's 3rd colonoscopy. There are no GI symptoms and there is no family history of colorectal cancer. Review of Systems Review of Systems: All systems reviewed & are unremarkable except as noted in HPI and below PMFSH Past Medical History Medical History Benign essential tremor Minimal cognitive impairment BMI 31.0-31.9,adult Surgical History Surgical History H/O lateral meniscus repair of left knee Hx of gastric bypass History of cholecystectomy H/O: hysterectomy History of appendectomy Family History Family History Mother Cardiovascular disease Right-sided heart failure Alzheimer disease Father Diabetes mellitus Depression Anxiety Cerebrovascular accident Alzheimer disease Sibling Pancreatic cancer Diabetes mellitus Hypertension Son Alcoholism Asthma Bipolar 1 disorder Grandparent Diabetes mellitus Hypertension Cardiovascular disease Alzheimer disease Thyroid disorder Social History Social History Smoking status: Never smoker Second hand tobacco smoke exposure: Yes Alcohol intake: never Substance use: never Substance use type: does not use Lack of Transportation: No Lack of Food: Never True Current Housing: I Have Housing Concerned About Future Housing: No Difficulty Paying Gas/Electric Bills: No Difficulty Paying for Meds: No Currently Unemployed: No Education: Associate Degree Difficulty w/ Childcare or Family Care: No Living arrangements: with family Occupation/Education: retired 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 Gender identity (if verbalized by the patient): Female Meds Home Medications and Allergies Home Medications ?Medication ?Instructions ?Recorded ?Confirmed ?Type lamotrigine 25 mg tablet 25 mg PO DAILY 02/07/23 07/10/25 History omeprazole 40 mg capsule,delayed 40 mg PO DAILY 02/07/23 07/10/25 History release topiramate 25 mg tablet 25 mg PO DAILY 02/07/23 07/10/25 History anastrozole 1 mg tablet 1 mg PO DAILY 09/22/24 07/10/25 History carbidopa 25 mg-levodopa 100 mg 1 tablet PO TID #300 tabs 03/23/25 07/10/25 Rx tablet primidone 50 mg tablet 50 mg PO DAILY #90 tabs 03/23/25 07/10/25 Rx propranolol 60 mg capsule,24 60 mg PO DAILY #90 caps 03/23/25 07/10/25 Rx hr,extended release Allergies Allergy/AdvReac Type Severity Reaction Status Date / Time Sulfa (Sulfonamide AdvReac Intermediate Difficulty Verified 07/10/25 10:51 Antibiotics) Breathing Vital Signs Vital Signs - 24 hr 07/10/25 10:53 Temperature 97.7 F Pulse Rate 60 Respiratory Rate 16 Blood Pressure 151/70 H Pulse Oximetry 99 Oxygen Delivery Room Air Exam Const: General: cooperative and healthy appearing Resp: Effort & Inspection: normal respiratory effort and able to speak in complete sentences Auscultation: clear to auscultation bilaterally Cardio: Rate: regular rate Rhythm: regular rhythm GI: Inspection: normal to inspection GI Palp: No No hepatosplenomegaly present Auscultation: normal bowel sounds Rectal Exam: deferred Skin: General skin exam: normal color Psych: Appearance: grossly normal Mental Status: mental status grossly normal Assessment and Plan Assessment and plan (1) Encounter for screening colonoscopy: Code(s): Z12.11 - Encounter for screening for malignant neoplasm of colon Status: Acute Assessment and Plan: The patient is deemed a good candidate for the procedure. Consent signed. Will proceed.
[2025-07-10 12:43] VITALS: BP 108/56; PULSE 55; RESP 18; O2SAT 98
[2025-07-10 12:53] VITALS: BP 118/66; PULSE 50; RESP 18; O2SAT 100
[2025-07-10 13:03] VITALS: BP 139/67; PULSE 52; RESP 18; O2SAT 100
== END 2025-07-10 13:14 | disposition home or self-care (01) ==
PROVIDERS: PCP Internal Medicine; Visit Provider Internal Medicine Gastroenterology
PROC: 0DJD8ZZ Inspection of Lower Intestinal Tract, Via Natural or Artificial Opening Endoscopic (ICD-10-PCS; CPT 45378; principal; 2025-07-10 11:30)
DX: Z12.11 Encounter for screening for malignant neoplasm of colon (principal); K57.30 Diverticulosis of large intestine without perforation or abscess without bleeding; G25.0 Essential tremor; G20.C Parkinsonism, unspecified; G31.84 Mild cognitive impairment of uncertain or unknown etiology; E66.9 Obesity, unspecified; Z68.30 Body mass index [BMI] 30.0-30.9, adult; Z98.890 Other specified postprocedural states; Z98.84 Bariatric surgery status; Z90.49 Acquired absence of other specified parts of digestive tract; Z80.0 Family history of malignant neoplasm of digestive organs; Z82.49 Family history of ischemic heart disease and other diseases of the circulatory system
CPT/HCPCS: G0105; J2003; J2704; J7120

== ENCOUNTER 2025-08-18 10:15 | Outpatient (CLI) | payer MEDICARE, SELFPAY ==
--- OUTSIDE RECORDS SUMMARY | 2025-08-18 10:55 | XMS_ITS | Clinical Summary ---
Author Organization [facility] [employer] Address [address] [place] [address] Care Team Providers Care Refrigeration Manager Name Role Phone Chanelle White BUSINESS DEVELOPMENT INTERN-WELDER GUN Primary Care Provider [phone] Source Comments [facility],non-owned Affiliates and Associated Physician Practices is amultiple site organization consisting of ambulatory clinics and hospital sitesin [place], [place], [place] and [place]. This disclosure is being madepursuant to the Care Everywhere program and may not contain all information available regarding this patient. 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 Gender Identity Not on file Sexual Orientation [...] complete [place] [address] [place] [address] [facility] [address] UHC MANAGED MEDICARE ADV * Guarantor: CHIP MOMIN Account Type Relation to Patient Date of Phone Billing Address Personal/Family [address] [address] SELF PAY NO INSURANCE Member Subscriber Plan / Payer (Ef fective for All Dates) Name:Malissa Chip Clay Member ID:Not on file Relation to Subscriber:Not on file Name:JASONABDELRAHMANDOUGLASPATRICIOCHIP Subscriber ID:Not on file Address: [address] [place], [place] [id number] Payer ID:Not on file Group ID:Not on file Type:Self Pay Address: [facility] MANAGED MEDICARE ADV * Guarantor: CHIP MOMIN Account Type Relation to Patient Date of Phone Billing Address Personal/Family [address] [place], [place] [id number] SELF PAY NO INSURANCE Member Subscriber Plan / Payer (Ef fective for All Dates) Name:Chip Momin Member ID:Not on file Relation to Subscriber:Not on file Name:[place] Subscriber ID:Not on file Address: [address] [place], [place] [id number] Payer ID:Not on file Group ID:Not on file Type:Self Pay Address: [place], [place] UHC MANAGED MEDICARE ADV * Guarantor: CHIP MOMIN Account Type Relation to Patient Date of Phone Billing Address Personal/Family [address] [place] SELF PAY NO INSURANCE Member Subscriber Plan / Payer (Ef fective for All Dates) Name:Chip Momin Obed Member ID:Not on file Relation to Subscriber:Not on file Name:[place]IP Subscriber ID:Not on file Address: [address] [place], [place] Payer ID:Not on file Group ID:Not on file Type:Self Pay Address: [facility] MANAGED MEDICARE ADV Care Teams Refrigeration Manager Relationship Specialty Start Date End Date Chanelle White, BUSINESS DEVELOPMENT INTERN-WELDER GUN [address] [place] [address] PCP - General Nurse Practitioner Family 08/27/19
--- OUTSIDE RECORDS SUMMARY | 2025-08-18 10:55 | XMS_ITS | Clinical Summary ---
Author Organization [facility] Address [address] [place] [address] Care Team Providers Care Consulting Group Analyst Name Role Phone Lele Hirsch DO Unavailable [phone] Rafa Stearns MD Unavailable [phone] Rafa Stearns MD Primary Care Provider [phone] Allergies Active Allergy Reactions Criticality Noted Date Comments Diphenhydramine Hydrocodone Stomach upset Low 01/20/2019 Morphine Nausea And Vomiting 01/31/2019 Sulfa (Sulfonamide Antibiotics) Medications topiramate (TOPAMAX) 25 mg tablet take 3 tablets by oral route at night 90 0 12/01/19 16 Active cholecalcifero l (VITAMIN D3) 5,000 unit tablet 0 0 03/11/20 15 Active cyanocobalamin , vitamin B-12, (VITAMIN B-12) 5,000 mcg tablet, [...] NIGHT 30 tablet 2 11/08/19 18 Active carbidopa-levo dopa (SINEMET) 25-100 mg per tabletIndicati ons:Parkinsoni sm Take 1 tablet by mouth 3 (three) times a day Active omeprazole (PriLOSEC) 40 mg capsuleIndicat ions:GERD Take 1 tablet by mouth every morning 07/26/20 Active acetaminophen 500 mg capsuleIndicat ions:Fever,Cirilo n Take 2 capsules (1,000 mg total) by mouth every 6 (six) hours as needed for pain Use first for management of pain 07/22/20 Active docusate sodium (COLACE) 100 mg capsuleIndicat ions:constipat ion Take 1 capsule (100 mg total) by mouth 2 (two) times a day 30 capsule 08/01/20 Active Additional Information Patient taking differently:100 mg oralAs needed, Indications: constipation, Reported on 03/20/2025 anastrozole (ARIMIDEX) 1 mg tablet TAKE 1 TABLET BY MOUTH EVERY DAY 90 tablet 08/13/20 Active anastrozole (ARIMIDEX) 1 mg tablet TAKE 1 TABLET BY MOUTH EVERY DAY 90 tablet 05/13/20 025 Discontinued Active Problems Problem Noted Date Diagnosed Date Parkinson's disease without fluctuating manifestations, unspecified whether dyskinesia present 12/20/2024 Bipolar I disorder 12/20/2024 Breast cancer in female 07/21/2024 Malignant neoplasm of right female breast 2023 Cancer Staging:Clinical stage from 08/15/2024:Stage IB(cT2, cN0(sn), cM0, G2, ER+, CA+, HER2-, Oncotype DX score: 2) - Signed by Lele Hirsch DO on 08/16/2024 Malignant neoplasm of upper- outer quadrant of right breast in female, estrogen receptor positive 05/28/2024 Essential tremor 12/01/2015 Overview (01/11/2017): Essential tremor Encounters Date Type Department Care Team Description 08/13/2025 Telephone [facility] Medicine Physicians [facility] Oncology [address] [place] [address] [place] [phone] Eli Treviño CMA from Last 3 Months Immunizations Immunization Administration [...] on file 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 on 02/13/2024. There are [...] compared to prior imaging studies performed at [facility] on 05/05/2024, at [place], [place] on 02/27/2023, and at [facility] on 02/13/2024. There are scattered [...] Most Recently Relevant to Health Maintenance Insurance [facility] MEDIC[facility] Address: [address] [address] [place] [address] [facility] MEDICARE ADVANTAGE Advance Directives For more information, please contact: [phone] * Full Code (Latest Code Status on File) Date Activated Date Inactivated Comments 07/21/2024 7:29 PM 07/22/2024 8:01 PM Care Teams Consulting Group Analyst Relationship Specialty Start Date End Date Rafa Stearns MD [address] [place] [address] MEDICAL ONCOLOGY, [address] [address] PCP - General Internal Medicine 05/28/24 Lele Hirsch DO [address] [place] [address] MEDICAL ONCOLOGY, [address] [address] Medical Oncologist/Drawing Box Tender Hematology and Oncology 05/19/24 Rafa Stearns MD [address] [place] [address] MEDICAL ONCOLOGY, [address] [address] Referring Physician Internal Medicine 05/26/24
[2025-08-18 11:25] LABS: Hematocrit 39.1 % (37.0-47.0); Hemoglobin 13.0 g/dL (12.0-15.0); Immature Granulocyte Percent A 0.3 % (0-0.5); Lymphocytes Absolute Auto 2.23 K/mm3 (0.9-3.2); Mean Corpuscular HGB Conc 33.2 g/dl (32-36); Mean Corpuscular Hemoglobin 32.3 pg (26-34); Mean Corpuscular Volume 97.3 fl (80-100); Nucleated Red Blood Cells Absolute Auto 0.000 K/mm3 (0.0-0.012); Nucleated Red Blood Cells Perc 0.0 % (0.0-0.2); Platelet Count Result 294 k/mm3 (150-375); Red Blood Count 4.02 M/mm3 (4.2-5.4); White Blood Count 6.2 K/mm3 (4.5-10.0)
[2025-08-18 11:47] LABS: Alanine Aminotransferase 6 U/L (6-35); Albumin Level 4.1 g/dL (3.5-5.1); Alkaline Phosphatase 82 U/L (38-126); Anion Gap 8 mmol/L (4-12); Aspartate Amino Transferase 31 U/L (14-36); Bilirubin,Total 0.6 mg/dL (0.2-1.3); Blood Urea Nitrogen 13 mg/dL (7-17); Calcium 9.3 mg/dL (8.4-10.2); Carbon Dioxide 23 mmol/L (22-30); Chloride 107 mmol/L (98-107); Estimated Glomerular Filt Rate > 60; Glucose 108 mg/dL (65-110); Potassium 3.8 mmol/L (3.4-5.0); Sodium 138 mmol/L (137-145); Total Protein 7.2 g/dL (6.3-8.2)
== END 2025-08-18 10:16 | disposition home or self-care (01) ==
LOC: ANHLAB 10:22
PROVIDERS: PCP Internal Medicine; Visit Provider Internal Medicine Medical Oncology
DX: C50.411 Malignant neoplasm of upper-outer quadrant of right female breast (principal); Z17.0 Estrogen receptor positive status [ER+]; M85.88 Other specified disorders of bone density and structure, other site; M85.852 Other specified disorders of bone density and structure, left thigh; M85.851 Other specified disorders of bone density and structure, right thigh
CPT/HCPCS: 36415; 77080; 80053; 85025; 86300

== ENCOUNTER 2025-08-18 12:24 | Outpatient (CLI) | payer MEDICARE, SELFPAY ==
--- NOTE | ~2025-08-18 | DEXA_ITS ---
Bone Density Report Name: CHIP LEONARDO Age: 75 Sex: Female Ethnicity: White Date of : 1950 Indication: postmenopausal; screening for osteoporosis; height loss; cancer; asthma or emphysema; hysterectomy; Referring Provider: TRACEY, RUBINA Willoughby Study: Bone densitometry was performed. Exam Date: August 18, 2025 Accession number: [id number] Bone Density: Region BMD T-score Z-score Classification AP Spine(L1-L4) 0.800 -2.2 0.1 Osteopenia Femoral Neck (Left) 0.592 -2.3 -0.3 Osteopenia Total Hip (Left) 0.815 -1.0 0.6 Normal Femoral Neck (Right) 0.599 -2.3 -0.3 Osteopenia Total Hip (Right) 0.766 -1.4 0.2 Osteopenia Total Hip Mean 0.791 -1.2 0.4 Osteopenia World Health Organization criteria for BMD impression classify patients as: Normal (T-score at or above -1.0), Osteopenia (T-score between -1.0 and -2.5), or Osteoporosis (T-score at or below -2.5). 10-year Fracture Risk(1): Major Osteoporotic Fracture 13% Hip Fracture 3.3% Reported Risk Factors: [place] (), Neck BMD=0.592, BMI=32.7 (1) FRAX(R) Version 3.08. Fracture probability calculated for an untreated patient. Fracture probability may be lower if the patient has received treatment. Clinical Information Provided by Patient: Has used the following medications: Vitamin D, Calcium Has the following medical conditions: Asthma or Emphysema, Cancer, Hysterectomy Patient maximum height was 60.5 Menopause Age: 34 Drinks caffeinated beverages Onset of menses at age 16 Number of children 3 Missed period for more than 6 months in a row Impression: The patient has low bone mass, based on the Left Femoral Neck T-score. The patient has an estimated ten-year risk of hip fracture of 3.3% and an estimated ten-year risk of major fracture of 13%, based on the WHO FRAX algorithm. Discussion: BONE DENSITY IS LOW AT ONE OR MORE SKELETAL SITES. THE PATIENT'S BMD AND CLINICAL RISK FACTORS CONTRIBUTE TO THIS PATIENT'S INCREASED RISK OF FRACTURE. This patient's lowest T-score is low at one or more skeletal sites. It meets the World Health Organization's (WHO) criteria for ?low bone mass? (T-score between -1.0 and -2.5). The patient's 10-year risk of hip fracture as calculated by FRAX exceeds the threshold where pharmacological therapy is recommended by the National Osteoporosis Foundation (NOF). However, all treatment decisions require clinical judgment and consideration of individual patient factors, including patient preferences, comorbidities, previous drug use, risk factors not captured in the FRAX model (e.g., frailty, falls, vitamin D deficiency, increased bone turnover, interval significant decline in bone density) and possible under or overestimation of fracture risk by FRAX. The patient should follow a healthful lifestyle (good nutrition with adequate calcium and vitamin D, and appropriate weight-bearing exercise). Follow-Up: Consider a repeat BMD and Vertebral Fracture Assessment (VFA) exam in 2 years or sooner if medically necessary, to reassess this patient's status. Reported by: KARO on 08/18/2025 1:08:00 PM. Reviewed, dictated and finalized at location A.
--- OUTSIDE RECORDS SUMMARY | 2025-08-18 12:27 | XMS_ITS | Clinical Summary ---
Author Organization [facility] Address [address] [place] [address] Care Team Providers Care Concession Manager Name Role Phone Chanelle White HOUSE VISITOR-ROSE GRADER Primary Care Provider [phone] Source Comments [facility],non-owned Affiliates and Associated Physician Practices is amultiple site organization consisting of ambulatory clinics and hospital sitesin [place], [place], [place] and [place]. This disclosure is being madepursuant to the Care Everywhere program and may not contain all information available regarding this patient. Last updated 18.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 Gender Identity Not on file Sexual Orientation [...] complete [place] [address] [address] [place] [address] [employer] MANAGED MEDICARE ADV * Guarantor: CHIP MOMIN Account Type Relation to Patient Date of Phone Billing Address Personal/Family [address] [place] [address] SELF PAY NO INSURANCE Member Subscriber Plan / Payer (Ef fective for All Dates) Name:Malissa Chip Clay Member ID:Not on file Relation to Subscriber:Not on file Name:JASONABDELRAHMANDOUGLASPATRICIOCHIP Subscriber ID:Not on file Address: [address] [place], [place] [id number] Payer ID:Not on file Group ID:Not on file Type:Self Pay Address: [facility] MANAGED MEDICARE ADV * Guarantor: CHIP MOMIN Account Type Relation to Patient Date of Phone Billing Address Personal/Family [address] [place], [place] [id number] SELF PAY NO INSURANCE Member Subscriber Plan / Payer (Ef fective for All Dates) Name:Chip Momin Member ID:Not on file Relation to Subscriber:Not on file Name:[place] Subscriber ID:Not on file Address: [address] [place], [place] [id number] Payer ID:Not on file Group ID:Not on file Type:Self Pay Address: [place], [place] UHC MANAGED MEDICARE ADV * Guarantor: CHIP MOMIN Account Type Relation to Patient Date of Phone Billing Address Personal/Family [address] [place] SELF PAY NO INSURANCE Member Subscriber Plan / Payer (Ef fective for All Dates) Name:Chip Momin Obed Member ID:Not on file Relation to Subscriber:Not on file Name:[place]IP Subscriber ID:Not on file Address: [address] [place], [place] Payer ID:Not on file Group ID:Not on file Type:Self Pay Address: [facility] MANAGED MEDICARE ADV Care Teams Concession Manager Relationship Specialty Start Date End Date Chanelle White, HOUSE VISITOR-ROSE GRADER [address] [place] [address] PCP - General Nurse Practitioner Family 08/27/19
--- OUTSIDE RECORDS SUMMARY | 2025-08-18 12:27 | XMS_ITS | Clinical Summary ---
Author Organization [facility] Address [address] [place] [address] Care Team Providers Care Hostel Manager Name Role Phone Lele Hirsch DO Unavailable [phone] Rafa Stearns MD Unavailable [phone] Rafa Stearns MD Primary Care Provider [phone] Allergies Active Allergy Reactions Criticality Noted Date [...] from 08/15/2024:Stage IB(cT2, cN0(sn), cM0, G2, ER+, MA+, HER2-, Oncotype DX score: 2) - Signed by Lele Hirsch DO on 08/16/2024 Malignant neoplasm of upper- outer quadrant of right breast in female, estrogen receptor positive 05/28/2024 Essential tremor 12/01/2015 Overview (01/11/2017): Essential tremor Encounters Date Type Department Care Team Description 08/13/2025 Telephone [facility] Medicine Physicians [facility] Oncology [address] [place] [address] [place] [phone] Eli Treviño CMA from Last 3 [...] on file 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 on 02/13/2024. There are scattered areas [...] compared to prior imaging studies performed at [facility] on 05/05/2024, at [place], [place] on 02/27/2023, and at [facility] on 02/13/2024. There are scattered areas [...] Most Recently Relevant to Health Maintenance Insurance [facility] MEDICARE ADVANTAGE [facility] MEDICARE ADVANTAGE Advance Directives For more information, please contact: [phone] * Full Code (Latest Code Status on File) Date Activated Date Inactivated Comments 07/21/2024 7:29 PM 07/22/2024 8:01 PM Care Teams Hostel Manager Relationship Specialty Start Date End Date Rafa Stearns MD [address] [place] [address] MEDICAL ONCOLOGY, [address] [address] PCP - General Internal Medicine 05/28/24 Lele Hirsch DO [address] [place] [address] MEDICAL ONCOLOGY, [address] [address] Medical Oncologist/Geophysical E Logger Hematology and Oncology 05/19/24 Rafa Stearns MD [address] [place] [address] MEDICAL ONCOLOGY, [address] [address] Referring Physician Internal Medicine 05/26/24
== END 2025-08-18 12:25 | disposition home or self-care (01) ==
LOC: ANHFOHIMG 12:25
PROVIDERS: PCP Internal Medicine; Visit Provider Internal Medicine Medical Oncology
DX: Z78.0 Asymptomatic menopausal state (principal); Z79.811 Long term (current) use of aromatase inhibitors; M85.88 Other specified disorders of bone density and structure, other site; M85.852 Other specified disorders of bone density and structure, left thigh; M85.851 Other specified disorders of bone density and structure, right thigh
CPT/HCPCS: 77080